=== PATIENT | male | born 1950 | race Caucasian/White ===

== ENCOUNTER 2016-08-16 17:59 | Emergency (ER) | payer MEDICARE, OTHER ==
[2016-08-16 18:06] VITALS: PULSE 50; RESP 18
[2016-08-16] MEDS ORDERED: DIPH,PERTUS(ACELL)TETVAC-LF 0.5 ML VIAL IM ONE (18:11)
--- NOTE | 2016-08-16 18:25 | ED ---
Fall HPI - General Chief Complaint: Fall Stated Complaint: fall Time Seen by Provider: 08/16/16 18:05 Source: patient, RN notes reviewed, old records reviewed Mode of arrival: EMS - History of Present Illness Initial Comments: Patient is a 66-year-old male with chief complaint of a fall from a standing position. Patient reports that he was walking and tripped over a concrete curb. Patient reports that he fell hit his head and has a laceration to the left eyebrow. Patient reports he does not believe he any loss of consciousness. Patient reports that a bystander saw him and called 911. Patient reports that he is on Coumadin for Afib. Patient reports that he had his last check approximately 3 weeks ago. Patient denies any other injuries besides the laceration. He denies headache. Patient son is here and reports that he is responding in his normal affect and normal mental status.Patient denies any recent fever, chills, shortness of breath, chest pain, back pain, abdominal pain, nausea vomiting, numbness or tingling, dysuria or hematuria, constipation or diarrhea, headaches or visual changes, or any other current symptoms - Related Data Home Medications Medication Instructions Recorded Confirmed Aspirin 81 mg PO DAILY 10/10/15 08/16/16 Atenolol [Tenormin] 50 mg PO BID 10/10/15 08/16/16 Cholecalciferol [Vitamin D3] 1,000 unit PO DAILY 10/10/15 08/16/16 Cyanocobalamin [Vitamin B-12] 1,000 mcg PO DAILY 10/10/15 08/16/16 Divalproex [Depakote] 250 mg PO BID 10/10/15 08/16/16 Divalproex [Depakote] 500 mg PO BID 10/10/15 08/16/16 Gabapentin [Neurontin] 100 mg PO QID 10/10/15 08/16/16 Isosorbide Mononitrate [Isosorbide 30 mg PO DAILY 10/10/15 08/16/16 Mononitrate ER] Levothyroxine Sodium [Synthroid] 88 mcg PO DAILY 10/10/15 08/16/16 [place]-3 Fatty Acids/Fish Oil [Fish 1 cap PO DAILY 10/10/15 08/16/16 Oil 1,000 mg Softgel] Ramipril 2.5 mg PO DAILY 10/10/15 08/16/16 Warfarin [Coumadin] 5 mg PO SUTUTHSA 10/10/15 08/16/16 Warfarin [Coumadin] 7.5 mg PO MOWEFR 10/10/15 08/16/16 carBAMazepine [Carbatrol] 100 mg PO DAILY 10/10/15 08/16/16 carBAMazepine [Carbatrol] 300 mg PO BID 10/10/15 08/16/16 Allergies Allergy/AdvReac Type Severity Reaction Status Date / Time No Known Allergies Allergy Verified 08/16/16 18:33 Review of Systems ROS Statement: Those systems with pertinent positive or pertinent negative responses have been documented in the HPI. ROS Other: All systems not noted in ROS Statement are negative. Past Medical History Past Medical History: Diabetes Mellitus, Hypertension, Seizure Disorder Additional Past Medical History / Comment(s): pt poor historian History of Any Multi-Drug Resistant Organisms: None Reported Past Surgical History: Bowel Resection, Orthopedic Surgery Past Psychological History: Anxiety Smoking Status: Former smoker Past Alcohol Use History: None Reported Past Drug Use History: None Reported General Exam - General Exam Comments Initial Comments: Patient is a pleasant and alert and oriented [id number] male. Patient doesn' t appear to be in any acute distress. Limitations: no limitations General appearance: alert, in no apparent distress Head exam: Present: normocephalic, normal inspection. Absent: atraumatic ( Evidence of a 3 cm laceration over the left eyebrow.) Eye exam: Present: normal appearance, PERRL, EOMI. Absent: scleral icterus, conjunctival injection, periorbital swelling ENT exam: Present: normal exam, mucous membranes moist Neck exam: Present: normal inspection. Absent: tenderness, meningismus, lymphadenopathy Respiratory exam: Present: normal lung sounds bilaterally. Absent: respiratory distress, wheezes, rales, rhonchi, stridor Cardiovascular Exam: Present: regular rate, normal rhythm, normal heart sounds. Absent: systolic murmur, diastolic murmur, rubs, gallop, clicks GI/Abdominal exam: Present: soft, normal bowel sounds. Absent: distended, tenderness, guarding, rebound, rigid Extremities exam: Present: normal inspection, full ROM, normal capillary refill. Absent: tenderness, pedal edema, joint swelling, calf tenderness Back exam: Present: normal inspection Neurological exam: Present: alert, oriented X3, CN II-XII intact Psychiatric exam: Present: normal affect, normal mood Skin exam: Present: warm, dry, intact, normal color. Absent: rash Course Vital Signs 08/16/16 18:00 Temperature 97.0 F L Pulse Rate 50 L Respiratory 18 Rate Blood Pressure 154/74 O2 Sat by Pulse 100 Oximetry Medical Decision Making - Medical Decision Making Patient is a 66-year-old male with chief complaint of a fall from a standing position. Patient reports that he was walking and tripped over a concrete curb. Patient reports that he fell hit his head and has a laceration to the left eyebrow. Patient reports he does not believe he any loss of consciousness. Patient reports that a bystander saw him and called 911. Patient reports that he is on Coumadin for Afib. Patient reports that he had his last check approximately 3 weeks ago. Patient denies any other injuries besides the laceration. He denies headache. CT brain and C-spine are reviewed and are negative for any acute intracranial abnormality or fracture. Patient was removed from the c-collar. The laceration was closed with Dermabond. The wound was well approximated and cleaned thoroughly prior to closure. I did discuss with the patient that they need to monitor for any signs of infection including redness and drainage or increased swelling. I also advised the patient's family and patient and he needs to be monitored for the next 24-48 hours after a head injury socially being on Coumadin. Advised him to return emergency room once if he has any vomiting or abnormal mental status. They state that they will comply to the treatment plan. Patient is in understanding and will be returning home at this time. - Lab Data Lab Results 08/16/16 Range/Units 18:43 PT 22.2 H (9.0-12.0) sec INR 2.3 (<1.1) APTT 32.3 H (22.0-30.0) sec - Radiology Data Radiology results: report reviewed There is no acute fracture or dislocation evident in the cervical spine. No acute intracranial hemorrhage or midline shift seen. There is mild diffuse cerebral atrophy and mild to moderate chronic small vessel ischemic changes demonstrate a. No significant change from prior. Disposition Clinical Impression: Minor head injury without loss of consciousness, Facial laceration Disposition: HOME SELF-CARE Condition: Good Instructions: Fall Prevention for Older Adults (ED) Additional Instructions: Patient advised to monitor for any signs of infection over the laceration that is on include redness drainage and swelling. Patient denies to return to the emergency department if any alarming signs or symptoms occur. Patient is to be monitored at all times for the next 24 hours and if any alarming signs including altered mental status or vomiting patient needs return the emergency department once. Referrals: Willa Bales MD [Primary Care Provider] - 1-2 days Time of Disposition: 19:47
[2016-08-16] MEDS ORDERED: TOPICAL SKIN ADHESIVE 1 EACH AMP TOPICAL ONE (19:04)
[2016-08-16 19:12] LABS: INR 2.3 (<1.1); Partial Thromboplastin Time 32.3 sec (22.0-30.0); Prothrombin Time 22.2 sec (9.0-12.0)
--- NOTE | 2016-08-16 19:34 | CT ---
EXAMINATION TYPE: CT brain cspine wo con DATE OF EXAM: 08/16/2016 7:23 PM COMPARISON: CT brain December 28, 2014 HISTORY: fall today Left fontal injury with headache and neck pain CT DLP: 1975 mGycm. Automated Exposure Control for Dose Reduction was Utilized. TECHNIQUE: CT scan of the head and cervical spine are performed without contrast. FINDINGS: There is no acute intracranial hemorrhage or midline shift identified. There is ventricul ar and sulcal prominence consistent with diffuse cerebral atrophy. There is low-attenuation periventr icular white matter presumed on basis of product of chronic small vessel ischemic change in patient t his age. Patchy soft tissue density bilateral external auditory canals, right greater than left is pr esumed product of cerumen. The calvarium is intact. Cervical spine is visualized in its entirety from C1 through upper thoracic levels and demonstrates s traightened alignment without evidence of acute fracture or dislocation. There is slight grade 1 retr olisthesis of C4 on C5. Prevertebral soft tissue appears within normal limits. The C1-C2 articulatio n is within normal limits on the coronal images. Vertebral body heights are maintained. There is moderate to severe multilevel spurring and disc space narrowing most prominent at C4-C5 level. There is effacement of anterior thecal sac at C3-C4 and C4- C5 levels due to spur disc complexes and at C5-C6 level due to posterior disc herniation. Review of a xial images shows multilevel uncovertebral facet degenerative changes causing neural foraminal narrow ing at several cervical levels. There is moderate to severe calcified plaque at carotid bulb level bi laterally. Lung apices are clear. IMPRESSION: 1. There is no acute fracture or dislocation evident in the cervical spine. 2. No acute intracranial hemorrhage or midline shift is seen. There is mild diffuse cerebral atrophy and mild to moderate chronic small vessel ischemic change redemonstrated. No significant change from prior.
[2016-08-16 20:19] VITALS: BP 153/83; TEMP 96.9
== END 2016-08-16 20:18 | disposition home or self-care (01) ==
LOC: EC 17:59
DX: S01.112A Laceration without foreign body of left eyelid and periocular area, initial encounter (principal); I10 Essential (primary) hypertension; I48.91 Unspecified atrial fibrillation; G40.909 Epilepsy, unspecified, not intractable, without status epilepticus; Z23 Encounter for immunization; Z79.82 Long term (current) use of aspirin; Z79.01 Long term (current) use of anticoagulants; Z87.891 Personal history of nicotine dependence; Z79.899 Other long term (current) drug therapy; W18.09XA Striking against other object with subsequent fall, initial encounter; Y93.01 Activity, walking, marching and hiking; Y99.8 Other external cause status
CPT/HCPCS: 12002; 36415; 70450; 72125; 85610; 85730; 90471; 90715; 99285

== ENCOUNTER → 2016-08-25 | Outpatient (CLI) | payer MEDICARE, OTHER ==
[2016-08-25 08:55] LABS: Basophils % (A) 1 %; CH 34.4; CHCM 34.2; Eosinophils # (A) 0.1 k/uL (0-0.7); Eosinophils % (A) 3 %; HCT 37.1 % (39.0-53.0); HDW 2.71; HGB 12.4 gm/dL (13.0-17.5); Luc # (Auto) 0.09; Luc % (Auto) 4; Lymphocytes # (A) 0.8 k/uL (1.0-4.8); Lymphocytes % (A) 30 %; MCH 33.8 pg (25.0-35.0); MCHC 33.4 g/dL (31.0-37.0); MCV 101.2 fL (80.0-100.0); Mean Platelet Volume 8.4; Monocytes # (A) 0.2 k/uL (0-1.0); Monocytes % (A) 9 %; Neutrophils # (A) 1.4 k/uL (1.3-7.7); Neutrophils % (A) 53 %; RBC 3.67 m/uL (4.30-5.90); RDW 12.6 % (11.5-15.5); WBC 2.6 k/uL (3.8-10.6); WBC (Perox) 2.99
[2016-08-25 09:19] LABS: Carbamazepine (Tegretol) 6.4 ug/mL
== END | disposition home or self-care (01) ==
LOC: LABWHC1 08:20
PROVIDERS: ATTEND Psychiatry & Neurology Neurology
DX: G40.209 Localization-related (focal) (partial) symptomatic epilepsy and epileptic syndromes with complex partial seizures, not intractable, without status epilepticus (principal)
CPT/HCPCS: 36415; 80156; 80164; 84450; 84460; 85025

== ENCOUNTER → 2016-11-20 | Outpatient (CLI) | payer MEDICARE, OTHER ==
[2016-11-20 15:44] LABS: Basophils # (A) 0.1 k/uL (0-0.2); Basophils % (A) 1 %; CH 34.5; CHCM 33.7; Eosinophils # (A) 0.1 k/uL (0-0.7); Eosinophils % (A) 2 %; HCT 38.3 % (39.0-53.0); HDW 2.59; HGB 12.6 gm/dL (13.0-17.5); Luc # (Auto) 0.09; Luc % (Auto) 2; Lymphocytes # (A) 1.2 k/uL (1.0-4.8); Lymphocytes % (A) 24 %; MCH 33.9 pg (25.0-35.0); MCHC 32.9 g/dL (31.0-37.0); MCV 102.9 fL (80.0-100.0); Macrocytosis Slight; Mean Platelet Volume 7.8; Monocytes # (A) 0.5 k/uL (0-1.0); Monocytes % (A) 10 %; Neutrophils # (A) 3.2 k/uL (1.3-7.7); Neutrophils % (A) 62 %; RBC 3.72 m/uL (4.30-5.90); RDW 13.6 % (11.5-15.5); WBC 5.1 k/uL (3.8-10.6); WBC (Perox) 5.24
== END | disposition home or self-care (01) ==
LOC: LABWHC1 15:05
PROVIDERS: ATTEND Psychiatry & Neurology Neurology
DX: G40.209 Localization-related (focal) (partial) symptomatic epilepsy and epileptic syndromes with complex partial seizures, not intractable, without status epilepticus (principal)
CPT/HCPCS: 36415; 85025

== ENCOUNTER → 2017-02-23 | Outpatient (CLI) | payer MEDICARE, OTHER ==
[2017-02-23 11:14] LABS: Basophils % (A) 1 %; CHCM 34.5; Eosinophils # (A) 0.1 k/uL (0-0.7); Eosinophils % (A) 1 %; HDW 2.73; HGB 12.8 gm/dL (13.0-17.5); Luc # (Auto) 0.06; Luc % (Auto) 1; Lymphocytes # (A) 1.1 k/uL (1.0-4.8); Lymphocytes % (A) 19 %; MCH 34.3 pg (25.0-35.0); MCHC 33.7 g/dL (31.0-37.0); MCV 101.8 fL (80.0-100.0); Macrocytosis Slight; Mean Platelet Volume 8.1; Monocytes # (A) 0.6 k/uL (0-1.0); Monocytes % (A) 11 %; Neutrophils # (A) 3.9 k/uL (1.3-7.7); Neutrophils % (A) 68 %; RBC 3.73 m/uL (4.30-5.90); RDW 13.6 % (11.5-15.5); WBC 5.7 k/uL (3.8-10.6); WBC (Perox) 5.23
--- NOTE | 2017-02-23 11:22 | XR ---
EXAMINATION TYPE: XR lumbosacral spine min 4V DATE OF EXAM: 02/23/2017 COMPARISON: NONE HISTORY: Back pain TECHNIQUE: 5 view lumbar spine FINDINGS: There 5 lumbar-type vertebral bodies. Pedicles are intact. There is loss of disc height thr ough the lumbar disc levels. Spondylosis is present. No spondylolysis is identified. Scoliosis is pre sent. A 3.8 cm round calcification is adjacent to the left L2 level could be a splenic artery or renal daniel ry aneurysm. IMPRESSION: 1. Degenerative disc changes throughout the lumbar spine. Scoliosis is present. 2. 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 CT may better localize this finding .
[2017-02-23 11:27] LABS: Carbamazepine (Tegretol) 5.8 ug/mL
== END | disposition home or self-care (01) ==
LOC: RADXRMAIN 09:14
PROVIDERS: ATTEND Psychiatry & Neurology Neurology
DX: M47.816 Spondylosis without myelopathy or radiculopathy, lumbar region (principal); M41.9 Scoliosis, unspecified; G40.209 Localization-related (focal) (partial) symptomatic epilepsy and epileptic syndromes with complex partial seizures, not intractable, without status epilepticus
CPT/HCPCS: 72110; 80156; 80164; 84450; 84460; 85025

== ENCOUNTER 2017-03-09 21:56 | Emergency (ER) | payer MEDICARE, OTHER ==
[2017-03-09 22:06] VITALS: RESP 16
[2017-03-09] MEDS ORDERED: SODIUM CHLORIDE 0.9% 1,000 ML IV ONE (22:24)
[2017-03-09 22:45] LABS: Basophils % (A) 1 %; CH 34.6; CHCM 34.8; Eosinophils # (A) 0.1 k/uL (0-0.7); Eosinophils % (A) 1 %; HDW 2.78; HGB 11.1 gm/dL (13.0-17.5); Luc # (Auto) 0.05; Luc % (Auto) 1; Lymphocytes # (A) 0.7 k/uL (1.0-4.8); Lymphocytes % (A) 15 %; MCH 34.7 pg (25.0-35.0); MCHC 34.7 g/dL (31.0-37.0); Mean Platelet Volume 8.3; Monocytes # (A) 0.4 k/uL (0-1.0); Monocytes % (A) 8 %; Neutrophils # (A) 3.4 k/uL (1.3-7.7); Neutrophils % (A) 74 %; RDW 13.1 % (11.5-15.5); WBC 4.6 k/uL (3.8-10.6); WBC (Perox) 4.53
[2017-03-09 22:53] LABS: INR 2.3 (<1.2); Partial Thromboplastin Time 29.5 sec (22.0-30.0); Prothrombin Time 22.2 sec (9.0-12.0)
--- NOTE | 2017-03-09 22:55 | ED ---
Fall HPI - General Chief Complaint: Fall Stated Complaint: Fall Time Seen by Provider: 03/09/17 22:13 Source: patient, EMS Mode of arrival: EMS - History of Present Illness Initial Comments: Patient presents following a fall. Patient states she was walking home from the store, when he tripped over the curb fell forward hitting his right eye on the ground. Complains of cut above his right eye. Patient is on Coumadin. Denies loss of consciousness. Patient states a bystander called the ambulance which brought him to the ER. Patient's only complaint at this time is pain over his right eye. Patient denies vision changes, numbness, weakness, neck pain, back pain, extremity pain, deformities, swelling. Fall was from ground level. No suspicion of alcohol or drug use. Patient walks with a cane normally. Patient states she has visiting physicians come to his house. States he has an appointment with them tomorrow. 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 Place Fall Occurred: street Loss of Consciousness: none Prolonged Down Time?: no Symptoms Prior to Fall: none Location: head - Related Data Home Medications Medication Instructions Recorded Confirmed Aspirin 81 mg PO DAILY 10/10/15 03/09/17 Atenolol [Tenormin] 50 mg PO BID 10/10/15 03/09/17 Cholecalciferol [Vitamin D3] 1,000 unit PO DAILY 10/10/15 03/09/17 Cyanocobalamin [Vitamin B-12] 1,000 mcg PO DAILY 10/10/15 03/09/17 Divalproex [Depakote] 250 mg PO BID 10/10/15 03/09/17 Divalproex [Depakote] 500 mg PO BID 10/10/15 03/09/17 Gabapentin [Neurontin] 100 mg PO QID 10/10/15 03/09/17 Isosorbide Mononitrate [Isosorbide 30 mg PO DAILY 10/10/15 03/09/17 Mononitrate ER] Levothyroxine Sodium [Synthroid] 88 mcg PO DAILY 10/10/15 03/09/17 [place]-3 Fatty Acids/Fish Oil [Fish 1 cap PO DAILY 10/10/15 03/09/17 Oil 1,000 mg Softgel] Ramipril 2.5 mg PO DAILY 10/10/15 03/09/17 Warfarin [Coumadin] 5 mg PO SUTUTHSA 10/10/15 03/09/17 Warfarin [Coumadin] 7.5 mg PO MOWEFR 10/10/15 03/09/17 carBAMazepine [Carbatrol] 100 mg PO DAILY 10/10/15 03/09/17 carBAMazepine [Carbatrol] 300 mg PO BID 10/10/15 03/09/17 Allergies Allergy/AdvReac Type Severity Reaction Status Date / Time No Known Allergies Allergy Verified 03/09/17 22:14 Review of Systems ROS Statement: Those systems with pertinent positive or pertinent negative responses have been documented in the HPI. ROS Other: All systems not noted in ROS Statement are negative. Constitutional: Denies: fever, chills, weakness Eyes: Reports: eye pain (Above the right eye. No pain within the orbit.). Denies: eye discharge, vision change ENT: Denies: ear pain, throat pain, dental pain, hearing loss, epistaxis Respiratory: Denies: dyspnea Cardiovascular: Denies: chest pain, palpitations Endocrine: Denies: fatigue Gastrointestinal: Denies: abdominal pain, nausea, vomiting Genitourinary: Denies: urgency, frequency Musculoskeletal: Denies: back pain, joint swelling, arthralgia, myalgia Skin: Reports: other (Wound over eye). Denies: rash Neurological: Reports: headache (Localized above right eye). Denies: weakness, numbness, paresthesias, confusion, vertigo Past Medical History Past Medical History: Atrial Fibrillation, Diabetes Mellitus, Hypertension, Seizure Disorder Additional Past Medical History / Comment(s): Hepatitis B carrier. History of Any Multi-Drug Resistant Organisms: None Reported Past Surgical History: Bowel Resection, Orthopedic Surgery, Pacemaker Past Psychological History: Anxiety Smoking Status: Former smoker Past Alcohol Use History: None Reported Past Drug Use History: None Reported General Exam - General Exam Comments Initial Comments: Patient sitting up in bed alert. Patient has had wrapped in bandage, dried blood along the right side of face. Patient conversing normally. Does not appear in pain. Calm, pleasant. Limitations: no limitations General appearance: alert, in no apparent distress Head exam: Present: other (Patient with 3 cm & 1cm lacerations above right eyebrow. No active bleeding. No other traumatic injuries identified on head or face. Nose appears normal. ) Eye exam: Present: normal appearance, PERRL, EOMI, periorbital swelling, periorbital tenderness (Swelling and tenderness above the right eye. Patient's eye movements intact bilaterally without pain.), other. Absent: conjunctival injection Pupils: Present: normal accommodation. Absent: irregular, unequal ENT exam: Present: normal exam, normal oropharynx Neck exam: Present: normal inspection, other (No midline tenderness, c-collar in place.). Absent: tenderness, meningismus Respiratory exam: Present: normal lung sounds bilaterally. Absent: respiratory distress, wheezes, rales, rhonchi, stridor Cardiovascular Exam: Present: regular rate, normal rhythm GI/Abdominal exam: Present: soft. Absent: distended, tenderness, guarding, rebound Rectal exam: Present: deferred Extremities exam: Present: normal inspection, full ROM, other (Trace pitting edema left lower extremity, patient states is chronic. No bony tenderness in the extremities, no joint swelling, superficial abrasion over lateral left knee. No pain with range of motion of the hips or pelvis.). Absent: tenderness Back exam: Present: full ROM, other (No vertebral tenderness). Absent: tenderness Neurological exam: Present: alert, oriented X3, CN II-XII intact. Absent: motor sensory deficit Psychiatric exam: Present: normal affect, normal mood Skin exam: Present: warm, dry, abrasion Course Vital Signs 03/09/17 21:59 Temperature 98.8 F Pulse Rate 55 L Respiratory 16 Rate Blood Pressure 136/74 O2 Sat by Pulse 100 Oximetry Medical Decision Making - Medical Decision Making Tetanus given in 08/2016 Chest/pelvis x-ray showed no acute process per radiologist. CT of head and neck show no acute process per radiologist. Lacerations above right eye copiously irrigated, no vascular involvement, no foreign bodies identified. Patient numbed with lidocaine with epinephrine, 7 nonabsorbable sutures placed. Patient tolerated procedure well. Bacitracin and dressing applied following procedure. Patient has no neurologic deficits on exam. INR elevated at 2.1. Given patient 's significant head trauma, elevated INR. Recommended overnight observation for neurologic monitoring and possible repeat head CT in 12 hours. Will transfer to trauma center [facility]. Spoke with Dr. Juan at [facility], updated with patient condition & results, excepts transfer to ER. Patient remains pain control. No neurologic findings on exam. Conversing normally. Patient updated with all results and plan. Risks and benefits of transfer explained to patient, he understands and agrees. - Lab Data Result diagrams: 03/09/17 22:40 03/09/17 22:40 Lab Results 03/09/17 03/09/17 03/09/17 Range/Units 22:40 22:40 22:40 WBC 4.6 (3.8-10.6) k/uL RBC 3.20 L (4.30-5.90) m/uL Hgb 11.1 L (13.0-17.5) gm/dL Hct 32.0 L (39.0-53.0) % MCV 100.0 (80.0-100.0) fL MCH 34.7 (25.0-35.0) pg MCHC 34.7 (31.0-37.0) g/dL RDW 13.1 (11.5-15.5) % Plt Count 149 L (150-450) k/uL Neutrophils % 74 % Lymphocytes % 15 % Monocytes % 8 % Eosinophils % 1 % Basophils % 1 % Neutrophils # 3.4 (1.3-7.7) k/uL Lymphocytes # 0.7 L (1.0-4.8) k/uL Monocytes # 0.4 (0-1.0) k/uL Eosinophils # 0.1 (0-0.7) k/uL Basophils # 0.0 (0-0.2) k/uL PT (9.0-12.0) sec INR (<1.2) APTT (22.0-30.0) sec Sodium 135 L (137-145) mmol/L Potassium 3.7 (3.5-5.1) mmol/L Chloride 100 (98-107) mmol/L Carbon Dioxide 27 (22-30) mmol/L Anion Gap 8 mmol/L BUN 22 H (9-20) mg/dL Creatinine 0.79 (0.66-1.25) mg/dL Est GFR (MDRD) Af Amer >60 (>60 ml/min/1.73 sqM) Est GFR (MDRD) Non-Af >60 (>60 ml/min/1.73 sqM) Glucose 151 H (74-99) mg/dL Calcium 8.8 (8.4-10.2) mg/dL Blood Type A Positive Blood Type Recheck CABO Indicated Antibody Screen NEGATIVE Spec Expiration Date 03/12/2017 - 233903/09/17 Range/Units 22:40 WBC (3.8-10.6) k/uL RBC (4.30-5.90) m/uL Hgb (13.0-17.5) gm/dL Hct (39.0-53.0) % MCV (80.0-100.0) fL MCH (25.0-35.0) pg MCHC (31.0-37.0) g/dL RDW (11.5-15.5) % Plt Count (150-450) k/uL Neutrophils % % Lymphocytes % % Monocytes % % Eosinophils % % Basophils % % Neutrophils # (1.3-7.7) k/uL Lymphocytes # (1.0-4.8) k/uL Monocytes # (0-1.0) k/uL Eosinophils # (0-0.7) k/uL Basophils # (0-0.2) k/uL PT 22.2 H (9.0-12.0) sec INR 2.3 H (<1.2) APTT 29.5 (22.0-30.0) sec Sodium (137-145) mmol/L Potassium (3.5-5.1) mmol/L Chloride (98-107) mmol/L Carbon Dioxide (22-30) mmol/L Anion Gap mmol/L BUN (9-20) mg/dL Creatinine (0.66-1.25) mg/dL Est GFR (MDRD) Af Amer (>60 ml/min/1.73 sqM) Est GFR (MDRD) Non-Af (>60 ml/min/1.73 sqM) Glucose (74-99) mg/dL Calcium (8.4-10.2) mg/dL Blood Type Blood Type Recheck Antibody Screen Spec Expiration Date - EKG Data -: EKG Interpreted by 03/09/17 23:16 EKG shows ventricularly paced rhythm, heart rate 51 - Radiology Data Radiology results: report reviewed Disposition Clinical Impression: Closed head injury, Eyebrow laceration, Elevated INR Narrative: Patient will be transferred to [facility] to the ER. Transfered via ALS. Disposition: DC/TRNS INTERMEDIATE CARE FAC Condition: Good Referrals: None,Stated [Primary Care Provider] - 1-2 days - Out of Hospital Transfer - Req. Specs Out of Hospital Transfer - Requested Specifics: Other Non-Acute
[2017-03-09 22:56] LABS: Anion Gap 8 mmol/L; Blood Urea Nitrogen 22 mg/dL (9-20); Calcium 8.8 mg/dL (8.4-10.2); Carbon Dioxide 27 mmol/L (22-30); Chloride 100 mmol/L (98-107); Glucose 151 mg/dL (74-99); Non-African American GFR(MDRD) >60 (>60 ml/min/1.73 sqM); Potassium 3.7 mmol/L (3.5-5.1); Sodium 135 mmol/L (137-145)
--- NOTE | 2017-03-09 23:10 | CT ---
EXAMINATION TYPE: CT brain yasmeen de jesus DATE OF EXAM: 03/09/2017 COMPARISON: 08/16/2016 HISTORY: Fall injury with abrasions to forehead. CT DLP: 1314.2 mGycm Automated exposure control for dose reduction was used. TECHNIQUE: CT scan of the head and cervical spine are performed without contrast. FINDINGS: There is cerebral cortical atrophy. There is no mass effect nor midline shift. There is n o sign of intracranial hemorrhage. The calvarium is intact. There is mild hypodensity in the perivent ricular white matter. This is more noticeable in the anterior right internal capsule. Cervical vertebra have normal alignment. There is narrowing of disc spaces throughout the cervical sp ine with spur formation. Facet joints are intact. There is hypertrophic multilevel facet arthropathy. Skull base is intact. There is bony spinal stenosis at C3-4 C4-5 due to endplate spur formation. IMPRESSION: Cerebral atrophy. Chronic small vessel ischemia. No change. Multilevel spondylosis and spinal stenosis. No fracture. No change.
--- NOTE | 2017-03-09 23:15 | XR ---
EXAMINATION TYPE: XR chest 1V portable DATE OF EXAM: 03/09/2017 COMPARISON: 10/10/2015 HISTORY: Fall TECHNIQUE: Single frontal view of the chest is obtained. FINDINGS: There is no heart failure nor confluent pneumonic infiltrate. There is left axillary pacem rico with the lead tip in the right ventricle. There is no pleural effusion. Thoracic aorta is athero matous. IMPRESSION: No active cardiopulmonary disease. No change. Osteoarthritis noted in both shoulder join ts and more on the right side.
--- NOTE | 2017-03-09 23:49 | XR ---
EXAMINATION TYPE: XR pelvis AP view DATE OF EXAM: 03/09/2017 COMPARISON: NONE HISTORY: Pain. Fall. TECHNIQUE: 2 views FINDINGS: The pelvic ring is intact. There is severe narrowing of hip joint spaces with spur formatio n. There is some flattening of the articular surface of the left femoral head. Sacroiliac joints appe ar intact. There are spondylotic changes in the lumbar spine. There is periarticular calcification on the right side more than the left. IMPRESSION: Moderately severe osteoarthritis. 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 No acute fracture seen.
[2017-03-10 01:01] VITALS: BP 160/80; PULSE 60; TEMP 98
== END 2017-03-10 01:12 ==
LOC: EC 21:56
DX: S01.111A Laceration without foreign body of right eyelid and periocular area, initial encounter (principal); S80.212A Abrasion, left knee, initial encounter; R79.1 Abnormal coagulation profile; R60.0 Localized edema; I10 Essential (primary) hypertension; G40.909 Epilepsy, unspecified, not intractable, without status epilepticus; F41.9 Anxiety disorder, unspecified; Z87.891 Personal history of nicotine dependence; Z79.01 Long term (current) use of anticoagulants; Z79.82 Long term (current) use of aspirin; Z79.899 Other long term (current) drug therapy; W18.09XA Striking against other object with subsequent fall, initial encounter; Y93.01 Activity, walking, marching and hiking; Y92.410 Unspecified street and highway as the place of occurrence of the external cause
CPT/HCPCS: 12013; 36415; 70450; 71010; 72125; 72170; 80048; 85025; 85610; 85730; 86850; 86900; 86901; 93005; 96360; 96361; 99285

== ENCOUNTER 2017-06-11 19:35 | Emergency (ER) | payer MEDICARE, OTHER ==
[2017-06-11 20:39] LABS: Basophils % (A) 1 %; Eosinophils # (A) 0.1 k/uL (0-0.7); Eosinophils % (A) 2 %; HCT 35.3 % (39.0-53.0); HGB 11.8 gm/dL (13.0-17.5); Lymphocytes # (A) 1.5 k/uL (1.0-4.8); Lymphocytes % (A) 25 %; MCH 33.2 pg (25.0-35.0); MCHC 33.3 g/dL (31.0-37.0); MCV 99.9 fL (80.0-100.0); Mean Platelet Volume 8.2; Monocytes # (A) 0.5 k/uL (0-1.0); Monocytes % (A) 9 %; Neutrophils # (A) 3.8 k/uL (1.3-7.7); Neutrophils % (A) 63 %; Platelet Count 214 k/uL (150-450); RBC 3.54 m/uL (4.30-5.90); RDW 13.4 % (11.5-15.5)
[2017-06-11 20:47] LABS: INR 1.6 (<1.2); Partial Thromboplastin Time 25.9 sec (22.0-30.0); Prothrombin Time 14.4 sec (9.0-12.0)
[2017-06-11 20:50] LABS: ALT 26 U/L (21-72); AST 33 U/L (17-59); Albumin 3.9 g/dL (3.5-5.0); Alkaline Phosphatase 57 U/L (38-126); Anion Gap 9 mmol/L; Blood Urea Nitrogen 30 mg/dL (9-20); Calcium 9.3 mg/dL (8.4-10.2); Carbon Dioxide 32 mmol/L (22-30); Chloride 95 mmol/L (98-107); Glucose 111 mg/dL (74-99); Sodium 136 mmol/L (137-145); Total Bilirubin 0.7 mg/dL (0.2-1.3); Total Protein 6.9 g/dL (6.3-8.2)
[2017-06-11 20:51] LABS: Potassium 4.4 mmol/L (3.5-5.1)
--- NOTE | 2017-06-11 21:24 | ED ---
General Adult HPI - General Chief complaint: Overdose Stated complaint: Accidental Overdose Time Seen by Provider: 06/11/17 20:00 Source: patient, EMS, RN notes reviewed Mode of arrival: EMS Limitations: physical limitation - History of Present Illness Initial comments: This a 59-year-old male presents emergency Department chief complaint of accidental overdose. Patient states that he was taking his night medications were also took his morning medications with him. Patient states that he takes pain medications. Patient states that he took these medications about 5:30 PM. He states that just prior arrival he started feeling slightly lightheaded and dizzy. Denied chest pain, shortness breath, focal weakness, nausea, vomiting diarrhea constipation. Patient states he has she is feeling much improved at this time. Patient states it seemed to be more when he initially stood up he felt dizzy. - Related Data Home Medications Medication Instructions Recorded Confirmed Aspirin 81 mg PO DAILY 10/10/15 06/11/17 Atenolol [Tenormin] 50 mg PO BID 10/10/15 06/11/17 Cholecalciferol [Vitamin D3] 1,000 unit PO DAILY 10/10/15 06/11/17 Cyanocobalamin [Vitamin B-12] 1,000 mcg PO DAILY 10/10/15 06/11/17 Divalproex [Depakote] 250 mg PO DAILY 10/10/15 06/11/17 Divalproex [Depakote] 500 mg PO BID 10/10/15 06/11/17 Gabapentin [Neurontin] 100 mg PO QID 10/10/15 06/11/17 Isosorbide Mononitrate [Isosorbide 30 mg PO DAILY 10/10/15 06/11/17 Mononitrate ER] Levothyroxine Sodium [Synthroid] 88 mcg PO DAILY 10/10/15 06/11/17 [place]-3 Fatty Acids/Fish Oil [Fish 1 cap PO DAILY 10/10/15 06/11/17 Oil 1,000 mg Softgel] Ramipril 2.5 mg PO DAILY 10/10/15 06/11/17 carBAMazepine [Carbatrol] 100 mg PO DAILY 10/10/15 06/11/17 carBAMazepine [Carbatrol] 300 mg PO BID 10/10/15 06/11/17 Docusate [Colace] 200 mg PO HS 06/11/17 06/11/17 Furosemide [Lasix] 20 mg PO BID 06/11/17 06/11/17 Potassium Chloride ER [K-Dur 20] 20 meq PO DAILY 06/11/17 06/11/17 Simvastatin [Zocor] 10 mg PO HS 06/11/17 06/11/17 Warfarin Sodium [Coumadin] 4 mg PO DAILY 06/11/17 06/11/17 Allergies Allergy/AdvReac Type Severity Reaction Status Date / Time No Known Allergies Allergy Verified 06/11/17 20:12 Review of Systems ROS Statement: Those systems with pertinent positive or pertinent negative responses have been documented in the HPI. ROS Other: All systems not noted in ROS Statement are negative. Past Medical History Past Medical History: Atrial Fibrillation, Diabetes Mellitus, Hypertension, Seizure Disorder Additional Past Medical History / Comment(s): Hepatitis B carrier. History of Any Multi-Drug Resistant Organisms: None Reported Past Surgical History: Bowel Resection, Orthopedic Surgery, Pacemaker Additional Past Surgical History / Comment(s): cataract surgery Past Psychological History: Anxiety Smoking Status: Former smoker Past Alcohol Use History: None Reported Past Drug Use History: None Reported General Exam Limitations: physical limitation General appearance: alert, in no apparent distress Head exam: Present: atraumatic, normocephalic, normal inspection Eye exam: Present: normal appearance, PERRL, EOMI. Absent: scleral icterus, conjunctival injection, periorbital swelling ENT exam: Present: normal exam, normal oropharynx, mucous membranes moist, TM's normal bilaterally, normal external ear exam Neck exam: Present: normal inspection, full ROM. Absent: tenderness, meningismus, lymphadenopathy Respiratory exam: Present: normal lung sounds bilaterally. Absent: respiratory distress, wheezes, rales, rhonchi, stridor Cardiovascular Exam: Present: regular rate, normal rhythm, normal heart sounds. Absent: systolic murmur, diastolic murmur, rubs, gallop, clicks Neurological exam: Present: alert, oriented X3, CN II-XII intact, reflexes normal. Absent: motor sensory deficit Skin exam: Present: warm, dry, intact, normal color. Absent: rash Course Vital Signs 06/11/17 19:41 Temperature 97.6 F Pulse Rate 69 Respiratory 16 Rate Blood Pressure 152/68 O2 Sat by Pulse 99 Oximetry EKG Findings - EKG Comments: EKG Findings:: EKG performed at 19:43 ventricular paced rhythm with rate of 52 QRS 0.84 QT/QTC 496/461 Medical Decision Making - Medical Decision Making 67-year-old male present emergency department for Be taking his medications. Patient does have a stable emergency department. Patient's labwork is such unremarkable. He is asymptomatic at this time he did state that he had an episode of dizziness at home with prompt him come emergency department. Patient is able to ambulate here without difficulty. We did discuss having follow-up and return for worsening symptoms. - Lab Data Result diagrams: 06/11/17 19:54 06/11/17 19:54 Lab Results 06/11/17 06/11/17 06/11/17 Range/Units 19:54 19:54 19:54 WBC 6.0 (3.8-10.6) k/uL RBC 3.54 L (4.30-5.90) m/uL Hgb 11.8 L (13.0-17.5) gm/dL Hct 35.3 L (39.0-53.0) % MCV 99.9 (80.0-100.0) fL MCH 33.2 (25.0-35.0) pg MCHC 33.3 (31.0-37.0) g/dL RDW 13.4 (11.5-15.5) % Plt Count 214 (150-450) k/uL Neutrophils % 63 % Lymphocytes % 25 % Monocytes % 9 % Eosinophils % 2 % Basophils % 1 % Neutrophils # 3.8 (1.3-7.7) k/uL Lymphocytes # 1.5 (1.0-4.8) k/uL Monocytes # 0.5 (0-1.0) k/uL Eosinophils # 0.1 (0-0.7) k/uL Basophils # 0.0 (0-0.2) k/uL PT 14.4 H (9.0-12.0) sec INR 1.6 H (<1.2) APTT 25.9 (22.0-30.0) sec Sodium 136 L (137-145) mmol/L Potassium 4.4 (3.5-5.1) mmol/L Chloride 95 L (98-107) mmol/L Carbon Dioxide 32 H (22-30) mmol/L Anion Gap 9 mmol/L BUN 30 H (9-20) mg/dL Creatinine 0.89 (0.66-1.25) mg/dL Est GFR (MDRD) Af Amer >60 (>60 ml/min/1.73 sqM) Est GFR (MDRD) Non-Af >60 (>60 ml/min/1.73 sqM) Glucose 111 H (74-99) mg/dL Calcium 9.3 (8.4-10.2) mg/dL Total Bilirubin 0.7 (0.2-1.3) mg/dL AST 33 (17-59) U/L ALT 26 (21-72) U/L Alkaline Phosphatase 57 (38-126) U/L Troponin I (0.000-0.034) ng/mL Total Protein 6.9 (6.3-8.2) g/dL Albumin 3.9 (3.5-5.0) g/dL Carbamazepine ug/mL 06/11/17 06/11/17 Range/Units 19:54 21:19 WBC (3.8-10.6) k/uL RBC (4.30-5.90) m/uL Hgb (13.0-17.5) gm/dL Hct (39.0-53.0) % MCV (80.0-100.0) fL MCH (25.0-35.0) pg MCHC (31.0-37.0) g/dL RDW (11.5-15.5) % Plt Count (150-450) k/uL Neutrophils % % Lymphocytes % % Monocytes % % Eosinophils % % Basophils % % Neutrophils # (1.3-7.7) k/uL Lymphocytes # (1.0-4.8) k/uL Monocytes # (0-1.0) k/uL Eosinophils # (0-0.7) k/uL Basophils # (0-0.2) k/uL PT (9.0-12.0) sec INR (<1.2) APTT (22.0-30.0) sec Sodium (137-145) mmol/L Potassium (3.5-5.1) mmol/L Chloride (98-107) mmol/L Carbon Dioxide (22-30) mmol/L Anion Gap mmol/L BUN (9-20) mg/dL Creatinine (0.66-1.25) mg/dL Est GFR (MDRD) Af Amer (>60 ml/min/1.73 sqM) Est GFR (MDRD) Non-Af (>60 ml/min/1.73 sqM) Glucose (74-99) mg/dL Calcium (8.4-10.2) mg/dL Total Bilirubin (0.2-1.3) mg/dL AST (17-59) U/L ALT (21-72) U/L Alkaline Phosphatase (38-126) U/L Troponin I 0.015 (0.000-0.034) ng/mL Total Protein (6.3-8.2) g/dL Albumin (3.5-5.0) g/dL Carbamazepine 8.3 ug/mL Disposition Clinical Impression: Accidental drug ingestion, Episode of dizziness Disposition: HOME SELF-CARE Condition: Stable Instructions: Dizziness (ED) Additional Instructions: Please return to the Emergency Department if symptoms worsen or any other concerns. Referrals: None,Stated [Primary Care Provider] - 1-2 days Time of Disposition: 21:56
[2017-06-11 22:07] VITALS: BP 145/76; PULSE 57; RESP 18; TEMP 97
== END 2017-06-11 23:01 | disposition home or self-care (01) ==
LOC: EC 19:35
DX: T50.901A Poisoning by unspecified drugs, medicaments and biological substances, accidental (unintentional), initial encounter (principal); R42 Dizziness and giddiness; I48.91 Unspecified atrial fibrillation; E11.9 Type 2 diabetes mellitus without complications; I10 Essential (primary) hypertension; G40.909 Epilepsy, unspecified, not intractable, without status epilepticus; F41.9 Anxiety disorder, unspecified; Z87.891 Personal history of nicotine dependence; Z79.01 Long term (current) use of anticoagulants; Z79.82 Long term (current) use of aspirin; Z79.899 Other long term (current) drug therapy
CPT/HCPCS: 36415; 80053; 80156; 84484; 85025; 85610; 85730; 93005; 99284

== ENCOUNTER → 2018-02-28 | Outpatient (CLI) | payer MEDICARE, OTHER ==
--- NOTE | 2018-02-28 10:12 | CT ---
EXAMINATION TYPE: CT brain wo con DATE OF EXAM: 02/28/2018 COMPARISON: 03/09/2017 HISTORY: Seizure disorder, weakness to bilateral legs CT DLP: 1072.3 mGycm Automated exposure control for dose reduction was used. FINDINGS: Intracranial atherosclerotic changes noted. There is moderate generalized degenerative change. Nonspe cific low-attenuation in the white matter bilaterally. Tiny low-attenuation the basal ganglia may been the basis of a tiny remote lacunar infarct or promine nt [place] spaces. No midline shift or mass effect. Calvarium intact. There is pneumatization of the petrous ridges. No acute hemorrhage. Changes of chronic sinusitis. IMPRESSION: DEGENERATIVE AND NONSPECIFIC WHITE MATTER CHANGE. FAVOR REMOTE MICROVASCULAR ISCHEMIA CORRELATE CLINI ASHLEIGH.
== END ==
LOC: RADCTMAIN 09:19
PROVIDERS: ATTEND Psychiatry & Neurology Neurology
DX: G31.9 Degenerative disease of nervous system, unspecified (principal); R90.89 Other abnormal findings on diagnostic imaging of central nervous system
CPT/HCPCS: 70450

== ENCOUNTER 2018-03-04 08:58 | Emergency (ER) | payer MEDICARE, OTHER ==
--- NOTE | 2018-03-04 09:07 | ED ---
General Adult HPI - General Stated complaint: CONFUSION Time Seen by Provider: 03/04/18 09:02 Source: patient, EMS, RN notes reviewed, old records reviewed - History of Present Illness Initial comments: 68-year-old male presenting for evaluation of confusion. The symptoms have been present for the past several weeks. Patient is currently staying at a boarding house, some of his roommates noted that he has had some increasing confusion. Patient denies any complaints. He is alert and oriented at the time my evaluation. Denies headache. Denies chest pain. Denies abdominal pain. Denies nausea vomiting. He does report some increased urinary frequency. Denies fever or chills. - Related Data Home Medications Medication Instructions Recorded Confirmed Aspirin 81 mg PO DAILY 10/10/15 03/04/18 Cholecalciferol [Vitamin D3] 1,000 unit PO DAILY 10/10/15 03/04/18 Cyanocobalamin [Vitamin B-12] 1,000 mcg PO DAILY 10/10/15 03/04/18 Divalproex [Depakote] 250 mg PO DAILY 10/10/15 03/04/18 Divalproex [Depakote] 500 mg PO BID 10/10/15 03/04/18 Gabapentin [Neurontin] 100 mg PO QID 10/10/15 03/04/18 Isosorbide Mononitrate [Isosorbide 30 mg PO HS 10/10/15 03/04/18 Mononitrate ER] [place]-3 Fatty Acids/Fish Oil [Fish 1 cap PO BID 10/10/15 03/04/18 Oil 1,000 mg Softgel] carBAMazepine [Carbatrol] 100 mg PO DAILY 10/10/15 03/04/18 carBAMazepine [Carbatrol] 300 mg PO BID 10/10/15 03/04/18 Docusate [Colace] 200 mg PO HS 06/11/17 03/04/18 Furosemide [Lasix] 20 mg PO BID 06/11/17 03/04/18 Simvastatin [Zocor] 10 mg PO HS 06/11/17 03/04/18 Apixaban [Eliquis] 5 mg PO BID 03/04/18 03/04/18 Atenolol [Tenormin] 25 mg PO DAILY 03/04/18 03/04/18 Eslicarbazepine Acetate [Aptiom] 600 mg PO DAILY 03/04/18 03/04/18 Levothyroxine Sodium [Synthroid] 100 mcg PO DAILY 03/04/18 03/04/18 Lisinopril [Zestril] 10 mg PO DAILY 03/04/18 03/04/18 Polyethylene Glycol 3350 [Clearlax] 17 gm PO DAILY 03/04/18 03/04/18 Potassium Chloride [K-Tab ER] 10 meq PO DAILY 03/04/18 03/04/18 Sennosides [Senna] 17.2 mg PO HS 03/04/18 03/04/18 Previous Rx's Medication Instructions Recorded Cephalexin [Keflex] 500 mg PO Q12HR #14 cap 03/04/18 Allergies Allergy/AdvReac Type Severity Reaction Status Date / Time No Known Allergies Allergy Verified 03/04/18 09:40 Review of Systems ROS Statement: Those systems with pertinent positive or pertinent negative responses have been documented in the HPI. ROS Other: All systems not noted in ROS Statement are negative. Past Medical History Past Medical History: Atrial Fibrillation, Diabetes Mellitus, Hypertension, Seizure Disorder Additional Past Medical History / Comment(s): Hepatitis B carrier. History of Any Multi-Drug Resistant Organisms: None Reported Past Surgical History: Bowel Resection, Orthopedic Surgery, Pacemaker Additional Past Surgical History / Comment(s): cataract surgery Past Psychological History: Anxiety Smoking Status: Former smoker Past Alcohol Use History: None Reported Past Drug Use History: None Reported General Exam General appearance: alert, in no apparent distress Head exam: Present: atraumatic, normocephalic Eye exam: Present: normal appearance, PERRL, EOMI ENT exam: Present: normal exam Neck exam: Present: normal inspection. Absent: tenderness, meningismus Respiratory exam: Present: normal lung sounds bilaterally. Absent: respiratory distress Cardiovascular Exam: Present: normal rhythm, bradycardia GI/Abdominal exam: Present: soft. Absent: distended, tenderness Extremities exam: Present: normal capillary refill, pedal edema Neurological exam: Present: alert, oriented X3, CN II-XII intact. Absent: motor sensory deficit Skin exam: Present: warm, dry, intact Course Vital Signs 03/04/18 03/04/18 09:01 10:12 Temperature 98.4 F Pulse Rate 51 L 52 L Respiratory 18 18 Rate Blood Pressure 132/77 154/84 O2 Sat by Pulse 98 98 Oximetry EKG Findings - EKG Comments: EKG Findings:: Electronic ventricular pacemaker, rate of 50, QRS duration 182, QTC 441 Medical Decision Making - Medical Decision Making 68-year-old male presenting for evaluation of confusion over the past several weeks. Patient [facility], his meals are provided, his medicine is given to him on a daily basis. Patient is alert and oriented time my evaluation. There was some concern that the patient may have urinary tract infection as he has had some increased urinary frequency and according to his utility aide had some urinary incontinence. Patient has a nonfocal neurologic exam is overall well-appearing, chest x-ray is negative, CT is negative for any acute intracranial findings, he has a normal white blood cell count, stable hemoglobin, normal CMP, urinalysis has 10 RBCs, no other signs of infection although this may be indicative of urinary tract infection. Case is discussed with Nicole who is the utility aide at the home where he resides. She has known this patient for 25 years. She is in charge of managing his medications. Patient does have good outpatient follow-up with neurology and he is seen by a visiting physician and nurse on a regular basis. He will be discharged home with outpatient follow-up. - Lab Data Result diagrams: 03/04/18 09:43 03/04/18 09:43 Lab Results 03/04/18 03/04/18 03/04/18 Range/Units 09:43 09:43 09:43 WBC 4.0 (3.8-10.6) k/uL RBC 3.82 L (4.30-5.90) m/uL Hgb 13.0 (13.0-17.5) gm/dL Hct 38.3 L (39.0-53.0) % MCV 100.4 H (80.0-100.0) fL MCH 34.1 (25.0-35.0) pg MCHC 33.9 (31.0-37.0) g/dL RDW 12.5 (11.5-15.5) % Plt Count 137 L (150-450) k/uL Neutrophils % 67 % Lymphocytes % 18 % Monocytes % 11 % Eosinophils % 1 % Basophils % 1 % Neutrophils # 2.7 (1.3-7.7) k/uL Lymphocytes # 0.7 L (1.0-4.8) k/uL Monocytes # 0.4 (0-1.0) k/uL Eosinophils # 0.1 (0-0.7) k/uL Basophils # 0.0 (0-0.2) k/uL PT (9.0-12.0) sec INR (<1.2) APTT (22.0-30.0) sec Sodium 139 (137-145) mmol/L Potassium 4.0 (3.5-5.1) mmol/L Chloride 101 (98-107) mmol/L Carbon Dioxide 28 (22-30) mmol/L Anion Gap 10 mmol/L BUN 25 H (9-20) mg/dL Creatinine 0.69 (0.66-1.25) mg/dL Est GFR (CKD-EPI)AfAm >90 (>60 ml/min/1.73 sqM) Est GFR (CKD-EPI)NonAf >90 (>60 ml/min/1.73 sqM) Glucose 155 H (74-99) mg/dL Calcium 9.4 (8.4-10.2) mg/dL Total Bilirubin 0.7 (0.2-1.3) mg/dL AST 38 (17-59) U/L ALT 20 L (21-72) U/L Alkaline Phosphatase 63 (38-126) U/L Total Protein 6.8 (6.3-8.2) g/dL Albumin 3.8 (3.5-5.0) g/dL Urine Color Yellow Urine Appearance Clear (Clear) Urine pH 7.5 (5.0-8.0) Ur Specific [place] 1.020 (1.001-1.035) Urine Protein Trace H (Negative) Urine Glucose (UA) 2+ H (Negative) Urine Ketones Negative (Negative) Urine Blood Small H (Negative) Urine Nitrite Negative (Negative) Urine Bilirubin Negative (Negative) Urine Urobilinogen 2.0 (<2.0) mg/dL Ur Leukocyte Esterase Negative (Negative) Urine RBC 10 H (0-5) /hpf Urine WBC <1 (0-5) /hpf Ur Squamous Epith Cells <1 (0-4) /hpf Hyaline Casts 1 (0-2) /lpf Urine Mucus Rare H (None) /hpf Urine Opiates Screen Not Detected (NotDetected) Ur Oxycodone Screen Not Detected (NotDetected) Urine Methadone Screen Not Detected (NotDetected) Ur Propoxyphene Screen Not Detected (NotDetected) Ur Barbiturates Screen Not Detected (NotDetected) U Tricyclic Antidepress Not Detected (NotDetected) Ur Phencyclidine Scrn Not Detected (NotDetected) Ur Amphetamines Screen Not Detected (NotDetected) U Methamphetamines Scrn Not Detected (NotDetected) U Benzodiazepines Scrn Not Detected (NotDetected) Urine Cocaine Screen Not Detected (NotDetected) U Marijuana (THC) Screen Not Detected (NotDetected) 03/04/18 Range/Units 09:43 WBC (3.8-10.6) k/uL RBC (4.30-5.90) m/uL Hgb (13.0-17.5) gm/dL Hct (39.0-53.0) % MCV (80.0-100.0) fL MCH (25.0-35.0) pg MCHC (31.0-37.0) g/dL RDW (11.5-15.5) % Plt Count (150-450) k/uL Neutrophils % % Lymphocytes % % Monocytes % % Eosinophils % % Basophils % % Neutrophils # (1.3-7.7) k/uL Lymphocytes # (1.0-4.8) k/uL Monocytes # (0-1.0) k/uL Eosinophils # (0-0.7) k/uL Basophils # (0-0.2) k/uL PT 11.4 (9.0-12.0) sec INR 1.2 H (<1.2) APTT 28.8 (22.0-30.0) sec Sodium (137-145) mmol/L Potassium (3.5-5.1) mmol/L Chloride (98-107) mmol/L Carbon Dioxide (22-30) mmol/L Anion Gap mmol/L BUN (9-20) mg/dL Creatinine (0.66-1.25) mg/dL Est GFR (CKD-EPI)AfAm (>60 ml/min/1.73 sqM) Est GFR (CKD-EPI)NonAf (>60 ml/min/1.73 sqM) Glucose (74-99) mg/dL Calcium (8.4-10.2) mg/dL Total Bilirubin (0.2-1.3) mg/dL AST (17-59) U/L ALT (21-72) U/L Alkaline Phosphatase (38-126) U/L Total Protein (6.3-8.2) g/dL Albumin (3.5-5.0) g/dL Urine Color Urine Appearance (Clear) Urine pH (5.0-8.0) Ur Specific [place] (1.001-1.035) Urine Protein (Negative) Urine Glucose (UA) (Negative) Urine Ketones (Negative) Urine Blood (Negative) Urine Nitrite (Negative) Urine Bilirubin (Negative) Urine Urobilinogen (<2.0) mg/dL Ur Leukocyte Esterase (Negative) Urine RBC (0-5) /hpf Urine WBC (0-5) /hpf Ur Squamous Epith Cells (0-4) /hpf Hyaline Casts (0-2) /lpf Urine Mucus (None) /hpf Urine Opiates Screen (NotDetected) Ur Oxycodone Screen (NotDetected) Urine Methadone Screen (NotDetected) Ur Propoxyphene Screen (NotDetected) Ur Barbiturates Screen (NotDetected) U Tricyclic Antidepress (NotDetected) Ur Phencyclidine Scrn (NotDetected) Ur Amphetamines Screen (NotDetected) U Methamphetamines Scrn (NotDetected) U Benzodiazepines Scrn (NotDetected) Urine Cocaine Screen (NotDetected) U Marijuana (THC) Screen (NotDetected) Disposition Clinical Impression: Confusion, UTI (urinary tract infection) Disposition: HOME SELF-CARE Condition: Good Instructions: Urinary Tract Infection in Men (ED) Prescriptions: Cephalexin [Keflex] 500 mg PO Q12HR #14 cap Is patient prescribed a controlled substance at d/c from ED?: No Referrals: None,Stated [Primary Care Provider] - 1-2 days Willa Bales MD [STAFF PHYSICIAN] - 1-2 days Time of Disposition: 12:02
--- NOTE | 2018-03-04 09:44 | CT ---
EXAMINATION TYPE: CT brain wo con DATE OF EXAM: 03/04/2018 COMPARISON: 02/28/2018 HISTORY: Confusion CT DLP: [address] of the brain was performed. The ventricles, basal cisterns and sulci overlying the cerebral convexities demonstrate mild enlargem ent. There is no evidence for intracranial hemorrhage or sulcal effacement. There is decreased attenuation about the periventricular white matter and deep white matter of both c erebral hemispheres, compatible with chronic small vessel ischemia. Differential diagnosis does inclu de demyelination. No mass effects are seen.No midline shift. Osseous calvarium is intact. If symptoms persist consider MRI. IMPRESSION: 1. Age related atrophic and chronic small vessel ischemic change without acute intracranial process s een at this time.
[2018-03-04 09:50] LABS: Basophils % (A) 1 %; Eosinophils # (A) 0.1 k/uL (0-0.7); Eosinophils % (A) 1 %; HCT 38.3 % (39.0-53.0); Lymphocytes # (A) 0.7 k/uL (1.0-4.8); Lymphocytes % (A) 18 %; MCH 34.1 pg (25.0-35.0); MCHC 33.9 g/dL (31.0-37.0); MCV 100.4 fL (80.0-100.0); Mean Platelet Volume 7.2; Monocytes # (A) 0.4 k/uL (0-1.0); Monocytes % (A) 11 %; Neutrophils # (A) 2.7 k/uL (1.3-7.7); Neutrophils % (A) 67 %; Platelet Count 137 k/uL (150-450); RBC 3.82 m/uL (4.30-5.90); RDW 12.5 % (11.5-15.5)
--- NOTE | 2018-03-04 09:57 | XR ---
EXAMINATION TYPE: XR chest 2V DATE OF EXAM: 03/04/2018 COMPARISON: March 09, 2017 HISTORY: Shortness of breath TECHNIQUE: Frontal and lateral views of the chest are obtained. FINDINGS: Scattered senescent parenchymal changes noted. Hyperinflation compatible with COPD. No evidence for infiltrate. No evidence for atelectasis. Heart size is stable. Mediastinal structures are stable and grossly unremarkable. No evidence for hilar prominence. Degenerative changes dorsal spine. IMPRESSION: 1. No evidence for acute pulmonary disease.
[2018-03-04 10:01] LABS: INR 1.2 (<1.2); Partial Thromboplastin Time 28.8 sec (22.0-30.0); Prothrombin Time 11.4 sec (9.0-12.0)
[2018-03-04 10:05] LABS: ALT 20 U/L (21-72); AST 38 U/L (17-59); Albumin 3.8 g/dL (3.5-5.0); Alkaline Phosphatase 63 U/L (38-126); Anion Gap 10 mmol/L; Appearance,Urine Clear (Clear); Bilirubin,Urine Negative (Negative); Blood Urea Nitrogen 25 mg/dL (9-20); Blood,Urine Small (Negative); Calcium 9.4 mg/dL (8.4-10.2); Carbon Dioxide 28 mmol/L (22-30); Chloride 101 mmol/L (98-107); Color,Urine Yellow; Glucose 155 mg/dL (74-99); Glucose,Urine (UA) 2+ (Negative); Hyaline Casts,Urine 1 /lpf (0-2); Ketones,Urine Negative (Negative); Leukocyte Esterase,Urine Negative (Negative); Mucus,Urine Rare /hpf; Nitrite,Urine Negative (Negative); PH, Urine 7.5 (5.0-8.0); Protein,Urine Trace (Negative); RBC,Urine 10 /hpf (0-5); Sodium 139 mmol/L (137-145); Squamous Epithelial Cell,Urine <1 /hpf (0-4); Total Bilirubin 0.7 mg/dL (0.2-1.3); Total Protein 6.8 g/dL (6.3-8.2); WBC,Urine <1 /hpf (0-5)
[2018-03-04 10:07] LABS: Amphetamine Screen,Urine Not Detected (NotDetected); Barbiturate Screen,Urine Not Detected (NotDetected); Benzodiazepines Screen,Urine Not Detected (NotDetected); Cocaine Screen,Urine Not Detected (NotDetected); Methadone Screen, Urine Not Detected (NotDetected); Opiate Screen,Urine Not Detected (NotDetected); Oxycodone Screen, Urine Not Detected (NotDetected); Phencyclidine Screen,Urine Not Detected (NotDetected); Tricyclic Antidepressant,Urine Not Detected (NotDetected); Urn Cannabinoid Scrn Not Detected (NotDetected)
[2018-03-04 12:17] VITALS: BP 145/75; PULSE 50; RESP 14; TEMP 97.2
== END 2018-03-04 12:33 | disposition home or self-care (01) ==
LOC: EC 08:58
DX: N39.0 Urinary tract infection, site not specified (principal); R41.0 Disorientation, unspecified; R00.1 Bradycardia, unspecified; I48.91 Unspecified atrial fibrillation; I10 Essential (primary) hypertension; G40.909 Epilepsy, unspecified, not intractable, without status epilepticus; F41.9 Anxiety disorder, unspecified; Z87.891 Personal history of nicotine dependence; Z79.01 Long term (current) use of anticoagulants; Z79.82 Long term (current) use of aspirin; Z79.899 Other long term (current) drug therapy; Z95.0 Presence of cardiac pacemaker
CPT/HCPCS: 36415; 70450; 71046; 80053; 80306; 81001; 85025; 85610; 85730; 87086; 93005; 99285

== ENCOUNTER → 2018-03-09 | Outpatient (CLI) | payer MEDICARE, OTHER ==
[2018-03-09 10:38] LABS: Carbamazepine (Tegretol) 5.4 ug/mL
[2018-03-09 10:41] LABS: Valproic Acid (Depakene) 52.4 ug/mL
[2018-03-09 11:07] LABS: Basophils % (A) 1 %; Eosinophils % (A) 1 %; HCT 34.6 % (39.0-53.0); HGB 11.5 gm/dL (13.0-17.5); Lymphocytes # (A) 0.9 k/uL (1.0-4.8); Lymphocytes % (A) 22 %; MCH 33.5 pg (25.0-35.0); MCHC 33.1 g/dL (31.0-37.0); MCV 101.1 fL (80.0-100.0); Mean Platelet Volume 7.9; Monocytes # (A) 0.4 k/uL (0-1.0); Monocytes % (A) 10 %; Neutrophils # (A) 2.6 k/uL (1.3-7.7); Neutrophils % (A) 65 %; Platelet Count 159 k/uL (150-450); RBC 3.42 m/uL (4.30-5.90); RDW 12.7 % (11.5-15.5)
== END | disposition home or self-care (01) ==
LOC: LABWHC1 08:48
PROVIDERS: ATTEND Psychiatry & Neurology Neurology
DX: G40.209 Localization-related (focal) (partial) symptomatic epilepsy and epileptic syndromes with complex partial seizures, not intractable, without status epilepticus (principal)
CPT/HCPCS: 36415; 80156; 80164; 84450; 84460; 85025

== ENCOUNTER 2018-04-07 11:36 | Emergency (ER) | payer MEDICARE, OTHER ==
--- NOTE | 2018-04-07 11:49 | ED ---
General Adult HPI - General Chief complaint: Fall Stated complaint: Fall - History of Present Illness Initial comments: Dictation was produced using [employer] dictation software. please excuse any grammatical, word or spelling errors. Chief Complaint: 68-year-old male past medical history of atrial fibrillation, diabetes, hypertension, seizures presents after fall. History of Present Illness: Patient is a 68-year-old male presents after fall. His multiple comorbidities. Approximate 30 minutes prior to arrival patient was walking a large dog with his walker. The dog twisted him up causing him to fall. He did fall down and struck his head. No loss of consciousness. Patient has no complaints at this time. He noticed some blood coming from his head. His landlord saw him sitting on the sidewalk. EMS was called patient was transferred. She has no complaints at this time. Patient does not take any other tenderness. The ROS documented in this emergency department record has been reviewed and confirmed by me. Those systems with pertinent positive or negative responses have been documented in the HPI. All other systems are other negative and/or noncontributory. - Related Data Home Medications Medication Instructions Recorded Confirmed Aspirin 81 mg PO DAILY 10/10/15 04/07/18 Cholecalciferol [Vitamin D3] 1,000 unit PO DAILY 10/10/15 04/07/18 Cyanocobalamin [Vitamin B-12] 1,000 mcg PO DAILY 10/10/15 04/07/18 Divalproex [Depakote] 250 mg PO DAILY 10/10/15 04/07/18 Divalproex [Depakote] 500 mg PO BID 10/10/15 04/07/18 Gabapentin [Neurontin] 100 mg PO QID 10/10/15 04/07/18 Isosorbide Mononitrate [Isosorbide 30 mg PO HS 10/10/15 04/07/18 Mononitrate ER] [place]-3 Fatty Acids/Fish Oil [Fish 1 cap PO BID 10/10/15 04/07/18 Oil 1,000 mg Softgel] carBAMazepine [Carbatrol] 100 mg PO DAILY 10/10/15 04/07/18 carBAMazepine [Carbatrol] 300 mg PO BID 10/10/15 04/07/18 Furosemide [Lasix] 20 mg PO BID 06/11/17 04/07/18 Simvastatin [Zocor] 10 mg PO HS 06/11/17 04/07/18 Apixaban [Eliquis] 5 mg PO BID 03/04/18 04/07/18 Atenolol [Tenormin] 25 mg PO DAILY 03/04/18 04/07/18 Eslicarbazepine Acetate [Aptiom] 600 mg PO DAILY 03/04/18 04/07/18 Levothyroxine Sodium [Synthroid] 100 mcg PO DAILY 03/04/18 04/07/18 Lisinopril [Zestril] 10 mg PO DAILY 03/04/18 04/07/18 Polyethylene Glycol 3350 [Clearlax] 17 gm PO DAILY PRN 03/04/18 04/07/18 Potassium Chloride [K-Tab ER] 10 meq PO DAILY 03/04/18 04/07/18 Sennosides [Senna] 17.2 mg PO HS 03/04/18 04/07/18 Allergies Allergy/AdvReac Type Severity Reaction Status Date / Time No Known Allergies Allergy Verified 04/07/18 12:29 Review of Systems ROS Statement: Those systems with pertinent positive or pertinent negative responses have been documented in the HPI. ROS Other: All systems not noted in ROS Statement are negative. Past Medical History Past Medical History: Atrial Fibrillation, Diabetes Mellitus, Hypertension, Seizure Disorder Additional Past Medical History / Comment(s): Hepatitis B carrier. History of Any Multi-Drug Resistant Organisms: None Reported Past Surgical History: Bowel Resection, Orthopedic Surgery, Pacemaker Additional Past Surgical History / Comment(s): cataract surgery Past Psychological History: Anxiety Smoking Status: Former smoker Past Alcohol Use History: None Reported Past Drug Use History: None Reported General Exam - General Exam Comments Initial Comments: PHYSICAL EXAM: General Impression: Alert and oriented x3, not in acute distress HEENT: The 1 cm hematoma over the left forehead, there is 2 mm superficial avulsion to the forehead without any active hemorrhaging, rest of the head is atraumatic, extra-ocular movements intact, pupils equal and reactive to light bilaterally, mucous membranes moist. Cardiovascular: Heart regular rate and rhythm, S1&S2 audible, no murmurs, rubs or gallops Chest: Lungs clear to auscultation bilaterally, no rhonchi, no wheeze, no rales Abdomen: Bowel sounds present, abdomen soft, non-tender, non-distended, no organomegaly Musculoskeletal: Pulses present and equal in all extremities, no peripheral edema Motor: Power 5/5 bilaterally, no focal deficits noted Neurological: CN II-XII grossly intact, no focal motor or sensory deficits noted Skin: Intact with no visualized rashes Psych: Normal affect and mood Course Vital Signs 04/07/18 11:43 Temperature 97.8 F Pulse Rate 57 L Respiratory 18 Rate Blood Pressure 149/93 O2 Sat by Pulse 100 Oximetry Medical Decision Making - Medical Decision Making ED course: 68-year-old male presents after a fall and head contusion. Patient has no other complaints at this time. Patient's fall secondary to mechanical fall. He was witnessed walking a large dog when the dog caused him to fall. Vital signs upon arrival are within acceptable limits. Medications were reviewed. Patient is not on any blood thinners. Patient does have history of pacemaker placed for bradycardia.Laboratory evaluation obtained. Patient has stable lab findings. Computed tomography scan of the head obtained showing no acute processes. CT C-spine is atraumatic. X-ray and pelvis x-ray is unremarkable. Cervical collar was cleared. Patient is at baseline. Plan is for patient to be discharged to follow up with primary care physician. Patient states his tetanus shot was updated this year. Laceration of the forehead was repaired using Steri-Strips. Is very superficial and well approximated. - Lab Data Result diagrams: 04/07/18 12:04 04/07/18 12:04 Lab Results 04/07/18 04/07/18 04/07/18 Range/Units 12:04 12:04 12:04 WBC 4.1 (3.8-10.6) k/uL RBC 3.78 L (4.30-5.90) m/uL Hgb 12.3 L (13.0-17.5) gm/dL Hct 38.2 L (39.0-53.0) % MCV 101.1 H (80.0-100.0) fL MCH 32.5 (25.0-35.0) pg MCHC 32.2 (31.0-37.0) g/dL RDW 12.5 (11.5-15.5) % Plt Count 179 (150-450) k/uL Neutrophils % 57 % Lymphocytes % 29 % Monocytes % 10 % Eosinophils % 2 % Basophils % 1 % Neutrophils # 2.3 (1.3-7.7) k/uL Lymphocytes # 1.2 (1.0-4.8) k/uL Monocytes # 0.4 (0-1.0) k/uL Eosinophils # 0.1 (0-0.7) k/uL Basophils # 0.0 (0-0.2) k/uL PT 12.2 H (9.0-12.0) sec INR 1.3 H (<1.2) Sodium 139 (137-145) mmol/L Potassium 4.6 (3.5-5.1) mmol/L Chloride 102 (98-107) mmol/L Carbon Dioxide 28 (22-30) mmol/L Anion Gap 9 mmol/L BUN 27 H (9-20) mg/dL Creatinine 0.83 (0.66-1.25) mg/dL Est GFR (CKD-EPI)AfAm >90 (>60 ml/min/1.73 sqM) Est GFR (CKD-EPI)NonAf 90 (>60 ml/min/1.73 sqM) Glucose 117 H (74-99) mg/dL Calcium 9.5 (8.4-10.2) mg/dL Disposition Clinical Impression: Fall Disposition: HOME SELF-CARE Condition: Good Instructions: Fall Prevention for Older Adults (ED) Is patient prescribed a controlled substance at d/c from ED?: No Referrals: Aashish Marina MD [Primary Care Provider] - 1-2 days Time of Disposition: 14:22
[2018-04-07 12:06] VITALS: RESP 18
[2018-04-07 12:33] LABS: Basophils % (A) 1 %; Eosinophils # (A) 0.1 k/uL (0-0.7); Eosinophils % (A) 2 %; HCT 38.2 % (39.0-53.0); HGB 12.3 gm/dL (13.0-17.5); INR 1.3 (<1.2); Lymphocytes # (A) 1.2 k/uL (1.0-4.8); Lymphocytes % (A) 29 %; MCH 32.5 pg (25.0-35.0); MCHC 32.2 g/dL (31.0-37.0); MCV 101.1 fL (80.0-100.0); Mean Platelet Volume 7.6; Monocytes # (A) 0.4 k/uL (0-1.0); Monocytes % (A) 10 %; Neutrophils # (A) 2.3 k/uL (1.3-7.7); Neutrophils % (A) 57 %; Platelet Count 179 k/uL (150-450); Prothrombin Time 12.2 sec (9.0-12.0); RBC 3.78 m/uL (4.30-5.90); RDW 12.5 % (11.5-15.5); WBC 4.1 k/uL (3.8-10.6)
[2018-04-07 12:38] LABS: Anion Gap 9 mmol/L; Blood Urea Nitrogen 27 mg/dL (9-20); Calcium 9.5 mg/dL (8.4-10.2); Carbon Dioxide 28 mmol/L (22-30); Chloride 102 mmol/L (98-107); Glucose 117 mg/dL (74-99); Sodium 139 mmol/L (137-145)
[2018-04-07 12:40] LABS: Potassium 4.6 mmol/L (3.5-5.1)
--- NOTE | 2018-04-07 13:41 | XR ---
EXAMINATION TYPE: XR chest 2V DATE OF EXAM: 04/07/2018 COMPARISON: 02/24/2018 TECHNIQUE: PA and lateral views submitted. HISTORY: Pain FINDINGS: The lungs are clear and there is no pneumothorax, pleural effusion, or focal pneumonia. Cardiac dev ice and cardiomegaly noted. Diffuse osteopenia with arthropathy of the shoulders. Atherosclerotic joaquin nge aorta. Hyperinflation of the lungs. IMPRESSION: 1. No acute process. Correlate for cardiomegaly and COPD.
--- NOTE | 2018-04-07 13:43 | XR ---
EXAMINATION TYPE: XR pelvis AP view DATE OF EXAM: 04/07/2018 COMPARISON: NONE HISTORY: Pain Findings: There is severe arthropathy of the hips with complete loss of joint space. Diffuse osteopenia noted. SI joints symmetric. Hypertrophic and degenerative change involving the lower lumbar spine. IMPRESSION: 1. Severe arthropathy of the hip joints with complete loss of joint space and remodeling of the femor al head and acetabulum.
--- NOTE | 2018-04-07 13:51 | CT ---
EXAMINATION TYPE: CT brain yasmeen de jesus DATE OF EXAM: 04/07/2018 COMPARISON: 03/04/2018. HISTORY: Fall CT DLP: 1221.9 mGycm, Automated exposure control for dose reduction was used. CONTRAST: Patient injected with 0 mL of Isovue 300. CT of the brain is performed utilizing 3 mm thick sections through the posterior fossa and 3 mm thick sections through the remaining calvarium. Study is performed within 24 hours of arrival to the hospital. No abnormal hyperdensity is present to suggest an acute intracranial hemorrhage. No mass lesion is evident. No acute infarcts are evident. Mild periventricular white matter hypodensity is present, likely on t he basis of chronic white matter ischemic changes. Ventricles and sulci are prominent for the patient age. Paranasal sinuses and mastoid air cells within the [id number] are clear. 0 left frontal superficial soft tissue swelling is present. No underlying fracture is evident. IMPRESSIONS: 1. Age-related atrophy CT cervical spine. COMPARISON: None CT of the cervical spine is performed in the axial plane at 2 mm thick sections. Reconstructed image s in the coronal, and sagittal plane are reviewed on the computer. No acute fractures are evident. There is a mild anterolisthesis of C3 anteriorly on C4. There is loss of disc height throughout the cervical spine. This is most notable C3-4 C4-5. Some vacu um phenomenon is noted C7-T1. Vertebral body heights are preserved. No spinal canal stenosis is evident. There is severe left foraminal stenosis due to uncovertebral joint hypertrophy and facet hypertrophy on the left at C3-4. Some posterior endplate changes are present C4 with mild anterior thecal sac com pression. Uncovertebral joint hypertrophy and endplate changes are present C4-5 with severe bilateral foraminal stenosis moderate anterior thecal sac compression. Uncovertebral joint hypertrophy is cont ributing to severe foraminal stenosis C5-6 bilaterally and moderate right and mild left C6-7 foramina l stenosis. IMPRESSIONS: 1. Degenerative disc changes throughout the cervical spine. 2. Uncovertebral joint hypertrophy contributing to severe foraminal stenosis and the upper and mid ce rvical spine discussed above. 3. Grade 1 Anterolisthesis of C3 anteriorly on C4.
[2018-04-07 14:32] VITALS: BP 131/70; PULSE 60; TEMP 97
== END 2018-04-07 14:33 | disposition home or self-care (01) ==
LOC: EC 11:36
DX: S01.81XA Laceration without foreign body of other part of head, initial encounter (principal); I10 Essential (primary) hypertension; I48.91 Unspecified atrial fibrillation; G40.909 Epilepsy, unspecified, not intractable, without status epilepticus; F41.9 Anxiety disorder, unspecified; Z79.01 Long term (current) use of anticoagulants; Z79.82 Long term (current) use of aspirin; Z79.899 Other long term (current) drug therapy; Z95.0 Presence of cardiac pacemaker; W01.0XXA Fall on same level from slipping, tripping and stumbling without subsequent striking against object, initial encounter; Y93.K1 Activity, walking an animal; Y92.480 Sidewalk as the place of occurrence of the external cause
CPT/HCPCS: 36415; 70450; 71046; 72125; 72170; 80048; 85025; 85610; 93005; 99284

== ENCOUNTER 2018-05-30 02:22 | Inpatient (IN) | payer MEDICARE ==
--- NOTE | 2018-05-30 03:32 | ED ---
Fall HPI - General Chief Complaint: Fall Stated Complaint: Fall Time Seen by Provider: 05/30/18 03:31 Source: patient, EMS Mode of arrival: EMS - History of Present Illness MD Complaint: fall Onset/Timin -: hour(s) Fall From: standing When Fall Occurred: 1 hour PANEL BEATER Fall Witnessed: no Place Fall Occurred: home Loss of Consciousness: unsure Prolonged Down Time?: no Symptoms Prior to Fall: dizziness Location: head - Related Data Home Medications Medication Instructions Recorded Confirmed Aspirin 81 mg PO DAILY 10/10/15 04/07/18 Cholecalciferol [Vitamin D3] 1,000 unit PO DAILY 10/10/15 04/07/18 Cyanocobalamin [Vitamin B-12] 1,000 mcg PO DAILY 10/10/15 04/07/18 Divalproex [Depakote] 250 mg PO DAILY 10/10/15 04/07/18 Divalproex [Depakote] 500 mg PO BID 10/10/15 04/07/18 Gabapentin [Neurontin] 100 mg PO QID 10/10/15 04/07/18 Isosorbide Mononitrate [Isosorbide 30 mg PO HS 10/10/15 04/07/18 Mononitrate ER] [place]-3 Fatty Acids/Fish Oil [Fish 1 cap PO BID 10/10/15 04/07/18 Oil 1,000 mg Softgel] carBAMazepine [Carbatrol] 100 mg PO DAILY 10/10/15 04/07/18 carBAMazepine [Carbatrol] 300 mg PO BID 10/10/15 04/07/18 Furosemide [Lasix] 20 mg PO BID 06/11/17 04/07/18 Simvastatin [Zocor] 10 mg PO HS 06/11/17 04/07/18 Apixaban [Eliquis] 5 mg PO BID 03/04/18 04/07/18 Atenolol [Tenormin] 25 mg PO DAILY 03/04/18 04/07/18 Eslicarbazepine Acetate [Aptiom] 600 mg PO DAILY 03/04/18 04/07/18 Levothyroxine Sodium [Synthroid] 100 mcg PO DAILY 03/04/18 04/07/18 Lisinopril [Zestril] 10 mg PO DAILY 03/04/18 04/07/18 Polyethylene Glycol 3350 [Clearlax] 17 gm PO DAILY PRN 03/04/18 04/07/18 Potassium Chloride [K-Tab ER] 10 meq PO DAILY 03/04/18 04/07/18 Sennosides [Senna] 17.2 mg PO HS 03/04/18 04/07/18 Allergies Allergy/AdvReac Type Severity Reaction Status Date / Time No Known Allergies Allergy Verified 05/30/18 02:38 Review of Systems ROS Statement: Those systems with pertinent positive or pertinent negative responses have been documented in the HPI. ROS Other: All systems not noted in ROS Statement are negative. Past Medical History Past Medical History: Atrial Fibrillation, Diabetes Mellitus, Hypertension, Seizure Disorder Additional Past Medical History / Comment(s): Hepatitis B carrier. History of Any Multi-Drug Resistant Organisms: None Reported Past Surgical History: Bowel Resection, Orthopedic Surgery, Pacemaker Additional Past Surgical History / Comment(s): cataract surgery Past Psychological History: Anxiety Smoking Status: Former smoker Past Alcohol Use History: None Reported Past Drug Use History: None Reported General Exam Limitations: no limitations, language barrier Course Vital Signs 05/30/18 02:34 Temperature 98.6 F Pulse Rate 71 Respiratory 20 Rate Blood Pressure 134/87 O2 Sat by Pulse 100 Oximetry Medical Decision Making - Lab Data Result diagrams: 05/30/18 02:49 05/30/18 02:49 Lab Results 05/30/18 05/30/18 05/30/18 Range/Units 02:49 02:49 02:49 WBC 7.1 (3.8-10.6) k/uL RBC 3.15 L (4.30-5.90) m/uL Hgb 10.3 L (13.0-17.5) gm/dL Hct 31.4 L (39.0-53.0) % MCV 99.6 (80.0-100.0) fL MCH 32.6 (25.0-35.0) pg MCHC 32.7 (31.0-37.0) g/dL RDW 12.3 (11.5-15.5) % Plt Count 290 (150-450) k/uL Neutrophils % 75 % Lymphocytes % 12 % Monocytes % 10 % Eosinophils % 1 % Basophils % 0 % Neutrophils # 5.3 (1.3-7.7) k/uL Lymphocytes # 0.9 L (1.0-4.8) k/uL Monocytes # 0.7 (0-1.0) k/uL Eosinophils # 0.1 (0-0.7) k/uL Basophils # 0.0 (0-0.2) k/uL PT 11.5 (9.0-12.0) sec INR 1.1 (<1.2) APTT 27.7 (22.0-30.0) sec Sodium 137 (137-145) mmol/L Potassium 4.1 (3.5-5.1) mmol/L Chloride 102 (98-107) mmol/L Carbon Dioxide 29 (22-30) mmol/L Anion Gap 6 mmol/L BUN 23 H (9-20) mg/dL Creatinine 0.69 (0.66-1.25) mg/dL Est GFR (CKD-EPI)AfAm >90 (>60 ml/min/1.73 sqM) Est GFR (CKD-EPI)NonAf >90 (>60 ml/min/1.73 sqM) Glucose 109 H (74-99) mg/dL Calcium 8.6 (8.4-10.2) mg/dL Total Bilirubin 0.4 (0.2-1.3) mg/dL AST 39 (17-59) U/L ALT 36 (21-72) U/L Alkaline Phosphatase 94 (38-126) U/L Total Protein 5.9 L (6.3-8.2) g/dL Albumin 2.8 L (3.5-5.0) g/dL Urine Color Urine Appearance (Clear) Urine pH (5.0-8.0) Ur Specific [place] (1.001-1.035) Urine Protein (Negative) Urine Glucose (UA) (Negative) Urine Ketones (Negative) Urine Blood (Negative) Urine Nitrite (Negative) Urine Bilirubin (Negative) Urine Urobilinogen (<2.0) mg/dL Ur Leukocyte Esterase (Negative) 05/30/18 Range/Units 02:49 WBC (3.8-10.6) k/uL RBC (4.30-5.90) m/uL Hgb (13.0-17.5) gm/dL Hct (39.0-53.0) % MCV (80.0-100.0) fL MCH (25.0-35.0) pg MCHC (31.0-37.0) g/dL RDW (11.5-15.5) % Plt Count (150-450) k/uL Neutrophils % % Lymphocytes % % Monocytes % % Eosinophils % % Basophils % % Neutrophils # (1.3-7.7) k/uL Lymphocytes # (1.0-4.8) k/uL Monocytes # (0-1.0) k/uL Eosinophils # (0-0.7) k/uL Basophils # (0-0.2) k/uL PT (9.0-12.0) sec INR (<1.2) APTT (22.0-30.0) sec Sodium (137-145) mmol/L Potassium (3.5-5.1) mmol/L Chloride (98-107) mmol/L Carbon Dioxide (22-30) mmol/L Anion Gap mmol/L BUN (9-20) mg/dL Creatinine (0.66-1.25) mg/dL Est GFR (CKD-EPI)AfAm (>60 ml/min/1.73 sqM) Est GFR (CKD-EPI)NonAf (>60 ml/min/1.73 sqM) Glucose (74-99) mg/dL Calcium (8.4-10.2) mg/dL Total Bilirubin (0.2-1.3) mg/dL AST (17-59) U/L ALT (21-72) U/L Alkaline Phosphatase (38-126) U/L Total Protein (6.3-8.2) g/dL Albumin (3.5-5.0) g/dL Urine Color Dark Yellow Urine Appearance Clear (Clear) Urine pH 6.0 (5.0-8.0) Ur Specific [place] 1.024 (1.001-1.035) Urine Protein Trace H (Negative) Urine Glucose (UA) 1+ H (Negative) Urine Ketones Negative (Negative) Urine Blood Negative (Negative) Urine Nitrite Negative (Negative) Urine Bilirubin Negative (Negative) Urine Urobilinogen 2.0 (<2.0) mg/dL Ur Leukocyte Esterase Negative (Negative) - EKG Data -: EKG Interpreted by Sd EKG shows normal: axis, intervals, QRS complexes, ST-T waves (Normal normal) Rate: normal (Underlying rhythm appears to be atrial fibrillation with rate approximately 67 bpm) Disposition Clinical Impression: Fall, Pneumonia Disposition: ADMITTED IP TO THIS [facility] Condition: Fair Is patient prescribed a controlled substance at d/c from ED?: No Referrals: Aashish Marina MD [Primary Care Provider] - 1-2 days
[2018-05-30 04:28] LABS: Basophils % (A) 0 %; Eosinophils # (A) 0.1 k/uL (0-0.7); Eosinophils % (A) 1 %; HCT 31.4 % (39.0-53.0); HGB 10.3 gm/dL (13.0-17.5); Lymphocytes # (A) 0.9 k/uL (1.0-4.8); Lymphocytes % (A) 12 %; MCH 32.6 pg (25.0-35.0); MCHC 32.7 g/dL (31.0-37.0); MCV 99.6 fL (80.0-100.0); Mean Platelet Volume 7.6; Monocytes # (A) 0.7 k/uL (0-1.0); Monocytes % (A) 10 %; Neutrophils # (A) 5.3 k/uL (1.3-7.7); Neutrophils % (A) 75 %; Platelet Count 290 k/uL (150-450); RBC 3.15 m/uL (4.30-5.90); RDW 12.3 % (11.5-15.5); WBC 7.1 k/uL (3.8-10.6)
[2018-05-30 04:38] LABS: ALT 36 U/L (21-72); AST 39 U/L (17-59); Albumin 2.8 g/dL (3.5-5.0); Alkaline Phosphatase 94 U/L (38-126); Anion Gap 6 mmol/L; Blood Urea Nitrogen 23 mg/dL (9-20); Calcium 8.6 mg/dL (8.4-10.2); Carbon Dioxide 29 mmol/L (22-30); Chloride 102 mmol/L (98-107); Glucose 109 mg/dL (74-99); Potassium 4.1 mmol/L (3.5-5.1); Sodium 137 mmol/L (137-145); Total Bilirubin 0.4 mg/dL (0.2-1.3); Total Protein 5.9 g/dL (6.3-8.2)
[2018-05-30 04:42] LABS: Appearance,Urine Clear (Clear); INR 1.1 (<1.2); Partial Thromboplastin Time 27.7 sec (22.0-30.0); Prothrombin Time 11.5 sec (9.0-12.0); Specific Gravity,Urine 1.024 (1.001-1.035)
[2018-05-30 04:43] LABS: Bilirubin,Urine Negative (Negative); Blood,Urine Negative (Negative); Color,Urine Dark Yellow; Glucose,Urine (UA) 1+ (Negative); Ketones,Urine Negative (Negative); Leukocyte Esterase,Urine Negative (Negative); Nitrite,Urine Negative (Negative); Protein,Urine Trace (Negative)
--- NOTE | 2018-05-30 04:47 | CT ---
EXAMINATION TYPE: CT brain yasmeen wo con DATE OF EXAM: 05/30/2018 COMPARISON: 04/07/2018 HISTORY: fall neck pain. Headache. CT DLP: 1344.7 mGycm Automated exposure control for dose reduction was used. TECHNIQUE: CT scan of the head and cervical spine are performed without contrast. FINDINGS: There is cerebral cortical atrophy. There is no mass effect nor midline shift. There is n o sign of intracranial hemorrhage. There is 2 cm white matter hypodense area in the right posterior f rontal lobe. Calvarium is intact. The cervical vertebra have normal alignment. There is narrowing of disc spaces throughout the cervica l spine. There is no compression fracture. Posterior elements are intact. There is mild facet arthrop athy. There is mucosal thickening in the sphenoid sinus. IMPRESSION: Cerebral atrophy. Chronic small vessel ischemia. There is new sphenoid sinusitis compared to old exam . No acute intracranial abnormality. Spondylotic changes in the cervical spine. No fracture. No change compared to old exam.
--- NOTE | 2018-05-30 04:49 | XR ---
EXAMINATION TYPE: XR chest 2V DATE OF EXAM: 05/30/2018 COMPARISON: 04/07/2018 HISTORY: Chest pain TECHNIQUE: Frontal and lateral views of the chest are obtained. FINDINGS: Heart is normal. There is airspace consolidation in the right middle lobe. There is left a xillary pacemaker with the lead tip in the right ventricle. There is no pleural effusion. Bony thorax is intact. IMPRESSION: There is new right middle lobe pneumonia compared to old exam. Normal heart.
[2018-05-30] MEDS ORDERED: AZITHROMYCIN 500 MG TAB PO STA (05:19)
--- NOTE | 2018-05-30 05:37 | XR ---
EXAMINATION TYPE: XR knee complete RT DATE OF EXAM: 05/30/2018 COMPARISON: NONE HISTORY: Knee pain TECHNIQUE: 3 views FINDINGS: I see no fracture nor dislocation. There is no sign of joint effusion. There is mild vascul ar calcification. IMPRESSION: No acute abnormality of the right knee. Mild osteoarthritis.
[2018-05-30] MEDS ORDERED: PNEUMONIA PROTOCOL UTILIZED 1 EACH MISC PO PRN (06:35)
[2018-05-30] MEDS ORDERED: POLYETHYLENE GLYCOL 3350 17 GM POWD.PACK PO PRN (06:36)
[2018-05-30] MEDS: SODIUM CHLORIDE 0.9% 1,000 ML IV SCH ×2 (08:51→17:47)
[2018-05-30] MEDS ORDERED: FUROSEMIDE 20 MG TAB PO SCH (09:00)
[2018-05-30] MEDS ORDERED: ATENOLOL 25 MG TAB PO SCH (09:00)
[2018-05-30] MEDS: carBAMazepine 100 MG TAB.ER.12H PO SCH (09:36)
[2018-05-30] MEDS: carBAMazepine 300 MG CPMP.12HR PO SCH ×2 (09:36→20:38)
[2018-05-30] MEDS: DIVALPROEX 250 MG TABLET.DR PO SCH (09:36)
[2018-05-30] MEDS: DIVALPROEX 500 MG TABLET.DR PO SCH ×2 (09:44→20:38)
[2018-05-30] MEDS: CHOLECALCIFEROL 1,000 UNIT TAB PO SCH (09:44)
[2018-05-30] MEDS: APIXABAN 5 MG TAB PO SCH ×2 (09:44→20:38)
[2018-05-30] MEDS: CYANOCOBALAMIN 500 MCG TAB PO SCH (09:44)
[2018-05-30] MEDS: GABAPENTIN 100 MG CAP PO SCH ×5 (09:44→20:38)
[2018-05-30] MEDS: ASPIRIN 81 MG PO SCH (09:45)
[2018-05-30] MEDS: LISINOPRIL 10 MG TAB PO SCH (09:45)
[2018-05-30] MEDS: POTASSIUM CHLORIDE ER 10 MEQ TAB.ER.PRT PO SCH (09:45)
[2018-05-30] MEDS: ESLICARBAZEPINE ACETATE 600 MG PO SCH (10:02)
[2018-05-30] MEDS: LEVOTHYROXINE 100 MCG TAB PO SCH (10:02)
[2018-05-30] MEDS: OXYBUTYNIN 10 MG TAB.ER.24 PO SCH (12:44)
[2018-05-30 17:23] LABS: Glucose,Whole Blood 176 mg/dL (75-99)
[2018-05-30] MEDS: ATORVASTATIN 10 MG TAB PO SCH (20:38)
[2018-05-30] MEDS: ISOSORBIDE MONONITRATE ER 30 MG TAB.ER.24H PO SCH (20:38)
[2018-05-30] MEDS: FUROSEMIDE 10 MG/ML 4 ML VIAL IV SCH (20:38)
[2018-05-30] MEDS: SENNOSIDES 8.6 MG TAB PO SCH (20:44)
--- NOTE | 2018-05-30 22:53 | HP ---
HISTORY AND PHYSICAL DATE OF ADMISSION: 05/30/2018 DATE OF SERVICE: 05/30/2018 PRESENTING COMPLAINT: Tired, short of breath. HISTORY OF PRESENTING COMPLAINT: This is a 68-year-old patient followed by Dr. Marina from [facility]. Chronic stable medical conditions include atrial fibrillation, on blood thinners, diabetes mellitus type 2, hyperlipidemia, hypertension, seizure disorder, pacemaker, hepatitis B carrier, hypothyroid. The patient states he has been a bit short of breath and noticed edema in his legs. Also because his bed is broken, he sits up in a chair at least for last 1 week and has noticed some increased swelling of lower extremities. Some shortness of breath is apparent. Minimal cough if any. No fever. No chills. No sputum production. Appetite is okay. Does feel weak and tired and is finding it is difficult to get up even from the toilet seat. He has to hold the bar and put his hand on the seat before he can get up and when he walks he is finding it difficult to lift his legs up. No trouble with his arm. He is able to feed himself. Appetite is okay and does not think he has had any fever or chills. Overall, run down. REVIEW OF SYSTEMS: CONSTITUTIONAL: Tired. HEENT none. RESPIRATORY: As above. CARDIOVASCULAR as above. GASTROINTESTINAL: None. GENITOURINARY: Urinary incontinence. DERMATOLOGICAL: None. HEMATOLOGICAL: None. LYMPHATICS: None. PSYCHIATRIC: Slightly forgetful. NEUROLOGICAL: None. PAST MEDICAL HISTORY: Atrial fibrillation, diabetes, hyperlipidemia, hypertension, pacemaker, diet-controlled diabetes type 2, hepatitis C carrier, seizure a long time ago, hypothyroid, urinary incontinence at times, hematuria, constipation. PAST SURGICAL HISTORY: Bowel resection, orthopedic surgery, pacemaker, stent in 2003, cardiac cath in 2009, bowel resection due to blockage, bilateral cataract removal, left little finger reattached. PSYCH HISTORY: History of bipolar. 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 Resides at [employer] room and board. Uses a cane. He does maintain his room. Alcohol occasionally, stopped in 1971. Does not smoke. FAMILY HISTORY: Mother of a heart being weak. HOME MEDICATIONS: 1. Carbatrol 300 mg b.i.d. and 100 mg daily. 2. Zocor 10 mg q.h.s. 3. Senna 17.2 mg p.o. q.h.s. 4. Potassium 10 mEq a day. 5. Polyethylene glycol 17 grams p.o. daily p.r.n. 6. Ditropan XL 10 mg a day. 7. Fish oil 1 capsule p.o. daily. 8. Zestril 10 mg p.o. daily. 9. Synthroid 100 mcg p.o. daily. 10.Imdur ER 30 mg q.h.s. 11.Neurontin 100 mg q.i.d. 12.Lasix 20 mg b.i.d. 13.Colace 200 mg at bedtime. 14.Depakote 500 mg b.i.d. 15.Depakote 250 mg p.o. daily. 16.Vitamin B12 1000 mcg a day. 17.Vitamin D3 1000 units p.o. daily. 18.Tenormin 25 mg p.o. daily. 19.Aspirin 81 mg p.o. daily. 20.Eliquis 5 mg b.i.d. ALLERGIES: None. PHYSICAL EXAMINATION: VITAL SIGNS ON PRESENTATION: Temperature 98.6, pulse 71, respiration 20, blood pressure 134/87, pulse 100 percent on room air. GENERAL APPEARANCE: Thin build, sitting up, awake. EYES: Pupils equal. Conjunctivae pale. HEENT: External appearance of nose and ears normal. Oral cavity normal. NECK: JVD unable to assess. Mass not palpable. RESPIRATORY: Effort normal. LUNGS: Decreased breath sounds. CARDIOVASCULAR: 1st and 2nd sounds normal. Minimal edema. ABDOMEN: Soft, nontender. Liver and spleen not palpable. LYMPHATICS: No lymph nodes palpable in the neck and axilla. PSYCHIATRY: Patient is able to answer most questions. NEUROLOGICAL: Pupils equal. Cranial nerves grossly intact. Power and sensation grossly intact. MUSCULOSKELETAL: Evidence of osteoarthritis especially in the hands. NEUROLOGICAL: The patient is not really able to lift his legs off the bed. INVESTIGATIONS: White count 7.1, hemoglobin 10.3, potassium 4.1, BUN 23, creatinine 0.69, albumin 2.8. UA positive for proteinuria, 1+. EKG tracing personally reviewed by me shows atrial fibrillation, rate controlled. Chest x-ray film personally reviewed by me shows a pacemaker and pacemaker lead. The right lobe infiltrate and some venous prominence. ASSESSMENT: 1. Right lower lobe pneumonia suspect gram-negative organism. 2. Acute on chronic congestive heart failure EF not known. 3. Persistent atrial fibrillation chronically on Eliquis. 4. Permanent pacemaker in place. 5. Chronic urine incontinence, probably from bladder dysfunction. 6. Chronic seizure disorder. The patient is on anti epileptic medications. 7. Hyperlipidemia. 8. Essential hypertension. 9. Proximal myopathy of the lower extremity. PLAN: We will put the patient on IV Lasix. We will get a get a 2-D echocardiogram to assess LV function. PT/OT will be consulted. Other home medications to continue. Patient is put on antibiotics in form of ceftriaxone. We will also check patient's thyroid status. The patient may be getting over replaced. Care was discussed with the patient. Copy to visiting physician Dr. Marina. OLU / CYNDI: [id number] /
[2018-05-31] MEDS: LEVOTHYROXINE 100 MCG TAB PO SCH (05:44)
[2018-05-31] MEDS: DIVALPROEX 500 MG TABLET.DR PO SCH ×2 (08:20→21:17)
[2018-05-31] MEDS: CHOLECALCIFEROL 1,000 UNIT TAB PO SCH (08:20)
[2018-05-31] MEDS: METOPROLOL TARTRATE 25 MG TAB PO SCH ×2 (08:20→21:18)
[2018-05-31] MEDS: FUROSEMIDE 10 MG/ML 4 ML VIAL IV SCH ×2 (08:20→21:17)
[2018-05-31] MEDS: POTASSIUM CHLORIDE ER 10 MEQ TAB.ER.PRT PO SCH (08:20)
[2018-05-31] MEDS: ASPIRIN 81 MG PO SCH (08:21)
[2018-05-31] MEDS: carBAMazepine 300 MG CPMP.12HR PO SCH ×2 (08:21→21:17)
[2018-05-31] MEDS: OXYBUTYNIN 10 MG TAB.ER.24 PO SCH (08:21)
[2018-05-31] MEDS: GABAPENTIN 100 MG CAP PO SCH ×4 (08:21→21:18)
[2018-05-31] MEDS: CYANOCOBALAMIN 500 MCG TAB PO SCH (08:21)
[2018-05-31] MEDS: carBAMazepine 100 MG TAB.ER.12H PO SCH (08:21)
[2018-05-31] MEDS: LISINOPRIL 10 MG TAB PO SCH (08:21)
[2018-05-31] MEDS: DIVALPROEX 250 MG TABLET.DR PO SCH (08:21)
[2018-05-31] MEDS: APIXABAN 5 MG TAB PO SCH ×2 (08:21→21:17)
[2018-05-31] MEDS: ESLICARBAZEPINE ACETATE 600 MG PO SCH (08:32)
[2018-05-31] MEDS ORDERED: AZITHROMYCIN 500 MG TAB PO SCH (09:00)
[2018-05-31 12:33] LABS: T4, Free (Free Thyroxine) 1.46 ng/dL (0.78-2.19)
--- NOTE | 2018-05-31 12:39 | P.CRDCN ---
History of Present Illness Consult date: 05/31/18 History of present illness: This is a 68-year-old gentleman with history of atrial fibrillation, previous permanent pacemaker implantation, diabetes mellitus, hypertension, hepatitis who has been having increasing edema of the legs and some shortness of breath. Mainly patient came because he was so weak that he could not stand or walk. Lower extremity extremely weak. He also noticed that he was having more swelling in the legs. Because his bed is broken, patient has been sitting and sleeping in the chair. That might have resulted in dependent edema. Patient is also having poor appetite. Since admission here patient was treated with Lasix with improvement of his leg edema. His proBNP is elevated. His chest x- ray showed a right middle lobe infiltrate suggestive of pneumonia. He doesn't appear patient had any significant fever or chills. At the time of my examination patient did not appear to be in acute distress. His EKG showed atrial fibrillation. Chest x-ray showed a single-chamber pacemaker Review of Systems As per the chart Past Medical History Past Medical History: Atrial Fibrillation, Diabetes Mellitus, Hyperlipidemia, Hypertension, Seizure Disorder Additional Past Medical History / Comment(s): Chronic Afib, SSS with pacemaker, diet controlled diabetes type II, hepatitis B carrier, pt states last seizure was "long ago", hypothyroid, bilateral lower leg/ankle edema, incontnence of urine at times, hematuria, constipation. History of Any Multi-Drug Resistant Organisms: None Reported Past Surgical History: Bowel Resection, Orthopedic Surgery, Pacemaker Additional Past Surgical History / Comment(s): 2010 generator change in pacer, PCI with stent 2003, cardiac cath 2009, bowel resections x2 d/t small blockages , bilateral cataracts removed, L pinky finger reattached. Past Anesthesia/Blood Transfusion Reactions: No Reported Reaction Type of Cardiac Device: Permanent Pacemaker Device Placement Date:: 07/13/02 Smoking Status: Former smoker - Past Family History Mother Additional Family Medical History / Comment(s): Mother is . Pt states she when her "heart gave out." Father Additional Family Medical History / Comment(s): Father is . Pt cannot recall his medical hx Medications and Allergies Home Medications Medication Instructions Recorded Confirmed Type Aspirin 81 mg PO DAILY 10/10/15 05/30/18 History Cholecalciferol [Vitamin D3] 1,000 unit PO DAILY 10/10/15 05/30/18 History Cyanocobalamin [Vitamin B-12] 1,000 mcg PO DAILY 10/10/15 05/30/18 History Divalproex [Depakote] 250 mg PO DAILY 10/10/15 05/30/18 History Divalproex [Depakote] 500 mg PO BID 10/10/15 05/30/18 History Gabapentin [Neurontin] 100 mg PO QID 10/10/15 05/30/18 History Isosorbide Mononitrate [Isosorbide 30 mg PO HS 10/10/15 05/30/18 History Mononitrate ER] Stacy-3 Fatty Acids/Fish Oil [Fish 1 cap PO BID 10/10/15 05/30/18 History Oil 1,000 mg Softgel] carBAMazepine [Carbatrol] 100 mg PO DAILY 10/10/15 05/30/18 History carBAMazepine [Carbatrol] 300 mg PO BID 10/10/15 05/30/18 History Furosemide [Lasix] 20 mg PO BID 06/11/17 05/30/18 History Simvastatin [Zocor] 10 mg PO HS 06/11/17 05/30/18 History Apixaban [Eliquis] 5 mg PO BID 03/04/18 05/30/18 History Atenolol [Tenormin] 25 mg PO DAILY 03/04/18 05/30/18 History Levothyroxine Sodium [Synthroid] 100 mcg PO DAILY 03/04/18 05/30/18 History Lisinopril [Zestril] 10 mg PO DAILY 03/04/18 05/30/18 History Polyethylene Glycol 3350 [Clearlax] 17 gm PO DAILY PRN 03/04/18 05/30/18 History Potassium Chloride [K-Tab ER] 10 meq PO DAILY 03/04/18 05/30/18 History Sennosides [Senna] 17.2 mg PO HS 03/04/18 05/30/18 History Docusate [Colace] 200 mg PO HS 05/30/18 05/30/18 History Oxybutynin Chloride [Ditropan XL] 10 mg PO DAILY 05/30/18 05/30/18 History Allergies Allergy/AdvReac Type Severity Reaction Status Date / Time No Known Allergies Allergy Verified 05/30/18 08:10 Physical Exam Vitals: Vital Signs Temp Pulse Resp BP BP Pulse Ox 12/25/18 07:19 99.1 F 59 L 18 167/87 97 05/30/18 23:00 98.3 F 44 L 20 144/82 99 05/30/18 15:15 98.7 F 52 L 19 125/75 100 Intake and Output 05/30/18 05/31/18 05/31/18 22:59 06:59 14:59 Intake Total 200 100 Output Total 1949 2350 700 Balance -1749 -2250 -700 Intake: Oral 200 100 Output: Urine 1850 2350 700 Post Void Residual 99 Other: # Voids 1 Weight 70.307 kg GENERAL EXAM: Patient is alert and oriented and doesn't appear to be in any acute distress HEENT: Normocephalic. Normal reaction of pupils, equal size, normal range of extraocular motion. No erythema or exudates in the throat. NECK: No masses, no nuchal rigidity. CHEST: No chest wall deformity. LUNGS: Diminished breath sounds with a few rales at the right base HEART: S1 and S2 normal. Irregular heart sounds ABDOMEN: No hepatosplenomegaly, normal bowel sounds, no guarding or rigidity. SKIN: No rashes CENTRAL NERVOUS SYSTEM: No focal deficits. EXTREMITIES: Resolving edema Results 05/30/18 02:49 05/30/18 02:49 Current Medications Generic Name Dose Route Start Last Admin Trade Name Freq PRN Reason Stop Dose Admin Apixaban 5 mg 05/30/18 09:00 05/31/18 08:21 Eliquis PO 5 mg BID SAIDA Administration Aspirin 81 mg 05/30/18 09:00 05/31/18 08:21 Aspirin PO 81 mg DAILY SAIDA Administration Atorvastatin Calcium 10 mg 05/30/18 21:00 05/30/18 20:38 Lipitor PO 10 mg HS SAIDA Administration Carbamazepine 300 mg 05/30/18 09:00 05/31/18 08:21 Carbatrol PO 300 mg BID SAIDA Administration Carbamazepine 100 mg 05/30/18 09:00 05/31/18 08:21 Tegretol Xr PO 100 mg DAILY SAIDA Administration Cholecalciferol 1,000 unit 05/30/18 09:00 05/31/18 08:20 Vitamin D3 PO 1,000 unit DAILY SAIDA Administration Cyanocobalamin 1,000 mcg 05/30/18 09:00 05/31/18 08:21 Vitamin B-12 PO 1,000 mcg DAILY SAIDA Administration Divalproex Sodium 500 mg 05/30/18 09:00 05/31/18 08:20 Depakote PO 500 mg BID SAIDA Administration Divalproex Sodium 250 mg 05/30/18 09:00 05/31/18 08:21 Depakote PO 250 mg DAILY SAIDA Administration Furosemide 40 mg 05/30/18 21:00 05/31/18 08:20 Lasix IV 40 mg Q12HR SAIDA Administration Gabapentin 100 mg 05/30/18 09:00 05/31/18 12:09 Neurontin PO 100 mg QID SAIDA Administration Ceftriaxone Sodium 1,000 mg/ 50 mls @ 100 mls/hr 05/31/18 09:00 05/31/18 08: 20 Sodium Chloride IVPB 06/03/18 09:01 100 mls/hr Q24HR SAIDA Administration Isosorbide Mononitrate 30 mg 05/30/18 21:00 05/30/18 20:38 Imdur PO 30 mg HS SAIDA Administration Levothyroxine Sodium 100 mcg 05/30/18 09:00 05/31/18 05:44 Synthroid PO 100 mcg DAILY@0630 SAIDA Administration Lisinopril 10 mg 05/30/18 09:00 05/31/18 08:21 Zestril PO 10 mg DAILY SAIDA Administration Metoprolol Tartrate 25 mg 05/31/18 09:00 05/31/18 08:20 Lopressor PO 25 mg BID SAIDA Administration Miscellaneous Information 1 each 05/30/18 06:35 Pneumonia Protocol Utilized PO ONCE PRN Per Protocol Non-Formulary Medication 600 mg 05/30/18 09:00 05/31/18 08:32 Eslicarbazepine Acetate [Aptiom] PO Not Given DAILY SAIDA Oxybutynin Chloride 10 mg 05/30/18 11:30 05/31/18 08:21 Ditropan Xl PO 10 mg DAILY SAIDA Administration Polyethylene Glycol 17 gm 05/30/18 06:36 Miralax PO DAILY PRN Constipation Potassium Chloride 10 meq 05/30/18 09:00 05/31/18 08:20 K-Dur 10 PO 10 meq DAILY SAIDA Administration Senna 17.2 mg 05/30/18 21:00 05/30/18 20:44 Senokot PO 17.2 mg HS SAIDA Administration Intake and Output 05/30/18 05/31/18 05/31/18 22:59 06:59 14:59 Intake Total 200 100 Output Total 1949 2350 700 Balance -1749 -2250 -700 Intake: Oral 200 100 Output: Urine 1850 2350 700 Post Void Residual 99 Other: # Voids 1 Weight 70.307 kg 05/30/18 02:49 05/30/18 02:49 EKG Interpretations (text) Atrial fibrillation with controlled and corresponds Assessment and Plan (1) Edema of both legs Current Visit: Yes Status: Acute Code(s): R60.0 - LOCALIZED EDEMA SNOMED Code(s): 165811329 (2) Fall Current Visit: Yes Status: Acute Code(s): W19.XXXA - UNSPECIFIED FALL, INITIAL ENCOUNTER SNOMED Code(s): 0360787 (3) Pneumonia Current Visit: Yes Status: Acute Code(s): J18.9 - PNEUMONIA, UNSPECIFIED ORGANISM SNOMED Code(s): 591639289 (4) Diastolic CHF Current Visit: Yes Status: Acute Code(s): I50.30 - UNSPECIFIED DIASTOLIC ( CONGESTIVE) HEART FAILURE SNOMED Code(s): 748154950 (5) Chronic atrial fibrillation Current Visit: Yes Status: Acute Code(s): I48.2 - CHRONIC ATRIAL FIBRILLATION SNOMED Code(s): 662315778 (6) Presence of permanent cardiac pacemaker Current Visit: Yes Status: Acute Code(s): Z95.0 - PRESENCE OF CARDIAC PACEMAKER SNOMED Code(s): 003260667 Plan: This is 68-year-old gentleman is admitted mainly with extreme weakness in the legs and also edema of the legs. The edema of the legs could be multifactorial. Patient has hypokalemia and high has been sleeping in the chair. Part of it could be dependent edema. He has chronic atrial fibrillation and his proBNP is high . This could be an imminent of congestive heart failure, most probably due to diastolic dysfunction. We'll get an echo Cardec gram done. We'll continue with current medical therapy with JOSE inhibitor or beta marisela, nitrates and diuretics. If necessary, we'll may add small dose of Aldactone. Thank you
[2018-05-31] MEDS: ISOSORBIDE MONONITRATE ER 30 MG TAB.ER.24H PO SCH (21:17)
[2018-05-31] MEDS: CEFDINIR 300 MG CAP PO SCH (21:17)
[2018-05-31] MEDS: ATORVASTATIN 10 MG TAB PO SCH (21:17)
[2018-05-31] MEDS: SENNOSIDES 8.6 MG TAB PO SCH (21:18)
[2018-06-01] MEDS: LEVOTHYROXINE 100 MCG TAB PO SCH (05:07)
--- NOTE | 2018-06-01 05:51 | PN ---
PROGRESS NOTE DATE OF SERVICE: 05/31/2018 PRESENTING COMPLAINT: Tired, short of breath. INTERVAL HISTORY: The patient has multiple symptoms presented what is now felt to be right lower lobe pneumonia, possible CHF exacerbation, is on Eliquis for persistent atrial fibrillation. The patient did get IV Lasix overnight, feeling much better today. Pending a 2-D echocardiogram. PT, OT is on the case. Minimal cough. Did tolerate his meal. REVIEW OF SYSTEMS: Done for constitutional, cardiovascular, GI, pulmonary; relevant findings as above. CURRENT MEDICATIONS: Current medications are reviewed that include IV ceftriaxone, IV Lasix. PHYSICAL EXAMINATION: On examination, temperature 99, pulse 57, respiration 19, blood pressure 145/70, pulse ox 99% on room air. GENERAL APPEARANCE: Sitting up in a chair, more comfortable. EYES: Pupils equal. Conjunctivae pale. NECK: JVD unable to assess. Mass not palpable. RESPIRATORY: Effort normal. LUNGS: Decreased breath sounds. CARDIOVASCULAR: First and second sounds normal. Minimal edema. ABDOMEN: Soft, nontender. Liver and spleen not palpable. PSYCHIATRY: Answering questions. INVESTIGATIONS: TSH is 6.7, free T4 is 1.46. ProBNP is 2110. ASSESSMENT: 1. Right lower lobe pneumonia, suspect gram-negative organism. 2. Acute on chronic congestive heart failure, ejection fraction not known. 3. Persistent atrial fibrillation, chronically on Eliquis. 4. Permanent pacemaker in place. 5. Chronic urine incontinence, probably from bladder dysfunction. 6. Chronic seizure disorder, on antiepileptic medications. 7. Hyperlipidemia. 8. Essential hypertension. 9. Proximal myopathy of the lower extremity. PLAN: The patient is done with diuresis. Awaiting a 2-D echocardiogram. PT, OT is on the case. We will switch the patient over to oral antibiotic. The patient will be maintained on the current dose of Synthroid. Repeat labs in the morning in the morning. The patient will need probably a subacute rehab. MMODL / IJN: [id number] /
[2018-06-01] MEDS: METOPROLOL TARTRATE 25 MG TAB PO SCH ×2 (07:44→20:54)
[2018-06-01] MEDS: ASPIRIN 81 MG PO SCH (07:45)
[2018-06-01] MEDS: FUROSEMIDE 40 MG TAB PO SCH (07:45)
[2018-06-01] MEDS: LISINOPRIL 10 MG TAB PO SCH (07:45)
[2018-06-01] MEDS: OXYBUTYNIN 10 MG TAB.ER.24 PO SCH (07:45)
[2018-06-01] MEDS: APIXABAN 5 MG TAB PO SCH ×2 (07:45→20:53)
[2018-06-01] MEDS: POTASSIUM CHLORIDE ER 10 MEQ TAB.ER.PRT PO SCH (07:45)
[2018-06-01] MEDS: DIVALPROEX 500 MG TABLET.DR PO SCH ×2 (07:45→20:54)
[2018-06-01] MEDS: GABAPENTIN 100 MG CAP PO SCH ×4 (07:45→20:55)
[2018-06-01] MEDS: CHOLECALCIFEROL 1,000 UNIT TAB PO SCH (07:45)
[2018-06-01] MEDS: CEFDINIR 300 MG CAP PO SCH ×2 (07:45→20:54)
[2018-06-01] MEDS: CYANOCOBALAMIN 500 MCG TAB PO SCH (07:45)
[2018-06-01] MEDS: DIVALPROEX 250 MG TABLET.DR PO SCH (07:45)
[2018-06-01] MEDS: carBAMazepine 100 MG TAB.ER.12H PO SCH (07:45)
[2018-06-01] MEDS: carBAMazepine 300 MG CPMP.12HR PO SCH ×2 (07:45→20:54)
[2018-06-01] MEDS: ESLICARBAZEPINE ACETATE 600 MG PO SCH (07:46)
--- NOTE | 2018-06-01 10:52 | XR ---
EXAMINATION TYPE: XR Hip Bilateral and AP pelvis DATE OF EXAM: 06/01/2018 COMPARISON: Pelvis 04/07/2018 HISTORY: Bilateral hip pain TECHNIQUE: A single AP view of the pelvis is obtained. Two views of the bilateral hips are obtained o n 5 images. FINDINGS: There is no interval change. Degenerative disc changes are noted in the lower lumbar spine . Marked arthropathy is present bilaterally within the hips and femoral head remodeling, loss of joint space, subchondral sclerosis and likely geode formation, marginal spurring. Overall bone mineralizati on is reduced. No fracture or dislocation. IMPRESSION: There is no acute fracture or dislocation in the pelvis or bilateral hips. Marked osteoa rthritis bilateral hips. Osteopenia.
[2018-06-01 11:04] LABS: Anion Gap 5 mmol/L; Blood Urea Nitrogen 22 mg/dL (9-20); Calcium 8.6 mg/dL (8.4-10.2); Carbon Dioxide 30 mmol/L (22-30); Chloride 100 mmol/L (98-107); Glucose 187 mg/dL (74-99); Potassium 4.3 mmol/L (3.5-5.1); Sodium 135 mmol/L (137-145)
--- NOTE | 2018-06-01 13:11 | P.PN ---
Subjective Progress Note Date: 06/01/18 This is a 68-year-old gentleman with history of chronic atrial fibrillation was brought to the hospital with extreme weakness and of the extremities and some shortness of breath and also increasing pedal edema. Some of the edema was felt to be secondary to dependent edema and may be related to hypoalbuminemia. His proBNP is high and there is a concern that he may have congestive heart failure. He responded very well to the diuretics and his edema is down. Patient is still waiting to have echocardiogram. Patient is in bed almost lying flat without any shortness of breath. No significant JVD. Lungs appeared to be clear. Heart is irregular but rate controlled. He seemed to be stable. We'll review echocardiogram after it is done Objective - Vital Signs Vital signs: Vital Signs Temp 97.5 F L 06/01/18 07:07 Pulse 62 06/01/18 07:07 Resp 18 06/01/18 07:07 BP 178/97 06/01/18 07:07 Pulse Ox 98 06/01/18 07:07 Intake & Output 05/31/18 06/01/18 06/01/18 18:59 06:59 18:59 Intake Total 300 Output Total 3100 1400 Balance -3100 -1100 Intake: Oral 300 Output: Urine 3100 1400 - Exam GENERAL EXAM: Patient is alert and oriented and doesn't appear to be in any acute distress HEENT: Normocephalic. Normal reaction of pupils, equal size, normal range of extraocular motion. No erythema or exudates in the throat. NECK: No masses, no nuchal rigidity. CHEST: No chest wall deformity. LUNGS: Equal air entry with no crackles or wheeze. HEART: S1 and S2 normal with no audible mumurs or gallops. Regular rhythm, femorals equal on both sides.. ABDOMEN: No hepatosplenomegaly, normal bowel sounds, no guarding or rigidity. SKIN: No rashes CENTRAL NERVOUS SYSTEM: No focal deficits. EXTREMITIES: But edema seemed to be clearing - Labs CBC & Chem 7: 05/30/18 02:49 06/01/18 10:34 Labs: Abnormal Lab Results - Last 24 Hours (Table) 06/01/18 Range/Units 10:34 Sodium 135 L (137-145) mmol/L BUN 22 H (9-20) mg/dL Glucose 187 H (74-99) mg/dL Assessment and Plan (1) Edema of both legs Current Visit: Yes Status: Acute Code(s): R60.0 - LOCALIZED EDEMA SNOMED Code(s): 297854485 (2) Fall Current Visit: Yes Status: Acute Code(s): W19.XXXA - UNSPECIFIED FALL, INITIAL ENCOUNTER SNOMED Code(s): 2526789 (3) Pneumonia Current Visit: Yes Status: Acute Code(s): J18.9 - PNEUMONIA, UNSPECIFIED ORGANISM SNOMED Code(s): 838532494 (4) Diastolic CHF Current Visit: Yes Status: Acute Code(s): I50.30 - UNSPECIFIED DIASTOLIC ( CONGESTIVE) HEART FAILURE SNOMED Code(s): 652824711 (5) Chronic atrial fibrillation Current Visit: Yes Status: Acute Code(s): I48.2 - CHRONIC ATRIAL FIBRILLATION SNOMED Code(s): 744913651 (6) Presence of permanent cardiac pacemaker Current Visit: Yes Status: Acute Code(s): Z95.0 - PRESENCE OF CARDIAC PACEMAKER SNOMED Code(s): 290787307 Plan: Continue current medical therapy. Patient is also being treated for pneumonia. We'll review the echocardiogram
--- NOTE | 2018-06-01 13:33 | P.PN ---
Subjective On-call hospitalist covering for Dr. Fong starting 06/01/2018 through 2018 This is a pleasant 68 years old with past medical history of chronic atrial fibrillation status post pacemaker, diabetes mellitus, hypertension, hyperlipidemia, seizure disorder, hypothyroidism, incontinence of urine at times and constipation. Patient has public guardian. Who presents because he said that his lower extremity cannot hold his weight anymore, however patient could not specify for how long his laxative been weak. On admission also was noted has bilateral leg swelling and he was suspected to have acute diastolic CHF and right pneumonia which leading him to falling. Patient has been evaluated by cardiology team and he is already on Lasix was switched to oral dosing. Also he is on antibiotics cefdinir noted by Dr. retana. Patient also on Eliquis 5 mg. Today patient was complaining from pain across his lower abdomen. And he was still complaining of from his lower extremity weakness however it was noticed that he couldn't elevate both legs against gravity but slowly. Also patient complains sometimes from shooting pain up his leg. Patient has Watts catheter and his been complaining of from constipation for a few days. Physical therapy already is been ordered Objective - Vital Signs Vital signs: Vital Signs Temp 97.5 F L 06/01/18 07:07 Pulse 62 06/01/18 07:07 Resp 18 06/01/18 07:07 BP 178/97 06/01/18 07:07 Pulse Ox 98 06/01/18 07:07 Intake & Output 05/31/18 06/01/18 06/01/18 18:59 06:59 18:59 Intake Total 300 Output Total 3100 1400 Balance -3100 -1100 Intake: Oral 300 Output: Urine 3100 1400 - Exam GENERAL: The patient is alert and oriented x3, not in any acute distress. Well developed, well nourished. HEENT: Pupils are round and equally reacting to light. EOMI. No scleral icterus. No conjunctival pallor. Normocephalic, atraumatic. No pharyngeal erythema. No thyromegaly. CARDIOVASCULAR: S1 and S2 present. No murmurs, rubs, or gallops. PULMONARY: Chest is clear to auscultation, no wheezing or crackles. ABDOMEN: Soft, nontender, nondistended, normoactive bowel sounds. No palpable organomegaly. MUSCULOSKELETAL: No joint swelling or deformity. EXTREMITIES: No cyanosis, clubbing, or pedal edema. -NEUROLOGICAL: Gross neurological examination did not reveal any focal deficits. Stable bilateral lower extremity weakness, however patient could raise his legs against gravity. SKIN: No rashes. - Labs CBC & Chem 7: 05/30/18 02:49 06/01/18 10:34 Labs: Abnormal Lab Results - Last 24 Hours (Table) 06/01/18 Range/Units 10:34 Sodium 135 L (137-145) mmol/L BUN 22 H (9-20) mg/dL Glucose 187 H (74-99) mg/dL Assessment and Plan Assessment: bbilateral lower extremity weakness, and [employer] acute or chronic in Acute on chronic diastolic CHF, on diuretic Community-acquired Right side pneumonia History of chronic atrial flutter on permanent pacemaker History of diabetes mellitus Essential hypertension Hyperlipidemia History of seizure disorder History of hepatitis B carrier Hypothyroidism Chronic urine incontinence He has probably guardian. Plan: This is a pleasant 68 years old male who presents with pneumonia and CHF, however he has lower extremity weakness. Consult nephrology service. Cardiology evaluation is appreciated. Continue with the Eliquis and antibiotics.Labs and medication were reviewed.. Continue same treatment. Continue with symptomatic treatment. Resume home medication. Monitor lytes and vitals. DVT and GI prophylaxis. Further recommendations of the clinical course of the patient DVT prophylaxis: On Eliquis GI Prophylaxis: Pepcid PT/OT: Pending Prognosis is guarded
--- NOTE | 2018-06-01 18:35 | P.CNNES ---
History of Present Illness Consult date: 06/01/18 History of Present Illness: The patient is a 68-year-old man who presented to the hospital after a fall. The patient states that he has been sleeping in a sitting posture at home. Patient found to have bilateral leg swelling. The patient complains of leg weakness for the past 2 weeks. The patient swelling responded to diuretics. Patient complains of pain in both legs. He denies any back pain. He had a CAT scan of the brain and cervical spine which showed cerebral atrophy and spondylitic changes in the cervical spine he had x-rays of the help pelvis and hips which showed osteoarthritis Patient has a history of seizures which are well controlled with his present medications. He has not had any breakthrough seizures. He had a CT of the brain which showed atrophy. He had a CT of the cervical spine which showed spondylitic changes. He had x-rays of the hip and pelvis which showed osteoporosis Review of Systems Constitutional: Denies chills, Denies fever Eyes: denies blurred vision, denies pain Ears, nose, mouth and throat: Denies headache, Denies sore throat Cardiovascular: Denies chest pain, Denies shortness of breath Respiratory: Denies cough Gastrointestinal: Reports as per HPI Musculoskeletal: Denies myalgias Integumentary: Denies pruritus, Denies rash Neurological: Denies numbness, Denies weakness Psychiatric: Denies anxiety, Denies depression Past Medical History Past Medical History: Atrial Fibrillation, Diabetes Mellitus, Hyperlipidemia, Hypertension, Seizure Disorder Additional Past Medical History / Comment(s): Chronic Afib, SSS with pacemaker, diet controlled diabetes type II, hepatitis B carrier, pt states last seizure was "long ago", hypothyroid, bilateral lower leg/ankle edema, incontnence of urine at times, hematuria, constipation. History of Any Multi-Drug Resistant Organisms: None Reported Past Surgical History: Bowel Resection, Orthopedic Surgery, Pacemaker Additional Past Surgical History / Comment(s): 2010 generator change in pacer, PCI with stent 2003, cardiac cath 2009, bowel resections x2 d/t small blockages , bilateral cataracts removed, L pinky finger reattached. Past Anesthesia/Blood Transfusion Reactions: No Reported Reaction Type of Cardiac Device: Permanent Pacemaker Device Placement Date:: 07/13/02 Smoking Status: Former smoker - Past Family History Mother Additional Family Medical History / Comment(s): Mother is . Pt states she when her "heart gave out." Father Additional Family Medical History / Comment(s): Father is . Pt cannot recall his medical hx Medications and Allergies Home Medications Medication Instructions Recorded Confirmed Type Aspirin 81 mg PO DAILY 10/10/15 05/30/18 History Cholecalciferol [Vitamin D3] 1,000 unit PO DAILY 10/10/15 05/30/18 History Cyanocobalamin [Vitamin B-12] 1,000 mcg PO DAILY 10/10/15 05/30/18 History Divalproex [Depakote] 250 mg PO DAILY 10/10/15 05/30/18 History Divalproex [Depakote] 500 mg PO BID 10/10/15 05/30/18 History Gabapentin [Neurontin] 100 mg PO QID 10/10/15 05/30/18 History Isosorbide Mononitrate [Isosorbide 30 mg PO HS 10/10/15 05/30/18 History Mononitrate ER] Corwith-3 Fatty Acids/Fish Oil [Fish 1 cap PO BID 10/10/15 05/30/18 History Oil 1,000 mg Softgel] carBAMazepine [Carbatrol] 100 mg PO DAILY 10/10/15 05/30/18 History carBAMazepine [Carbatrol] 300 mg PO BID 10/10/15 05/30/18 History Furosemide [Lasix] 20 mg PO BID 06/11/17 05/30/18 History Simvastatin [Zocor] 10 mg PO HS 06/11/17 05/30/18 History Apixaban [Eliquis] 5 mg PO BID 03/04/18 05/30/18 History Atenolol [Tenormin] 25 mg PO DAILY 03/04/18 05/30/18 History Levothyroxine Sodium [Synthroid] 100 mcg PO DAILY 03/04/18 05/30/18 History Lisinopril [Zestril] 10 mg PO DAILY 03/04/18 05/30/18 History Polyethylene Glycol 3350 [Clearlax] 17 gm PO DAILY PRN 03/04/18 05/30/18 History Potassium Chloride [K-Tab ER] 10 meq PO DAILY 03/04/18 05/30/18 History Sennosides [Senna] 17.2 mg PO HS 03/04/18 05/30/18 History Docusate [Colace] 200 mg PO HS 05/30/18 05/30/18 History Oxybutynin Chloride [Ditropan XL] 10 mg PO DAILY 05/30/18 05/30/18 History Allergies Allergy/AdvReac Type Severity Reaction Status Date / Time No Known Allergies Allergy Verified 05/30/18 08:10 Physical Examination - Vital Signs Vital Signs: Vital Signs Temp Pulse Resp BP Pulse Ox 06/01/18 14:48 98.1 F 59 L 18 143/90 98 06/01/18 07:07 97.5 F L 62 18 178/97 98 05/31/18 23:00 99 F 61 20 149/83 99 Intake and Output 06/01/18 06/01/18 06/01/18 06:59 14:59 22:59 Intake Total 100 240 Output Total 1400 1275 Balance -1300 -1035 Intake: Oral 100 240 Output: Urine 1400 1275 Other: # Voids 3 # Bowel Movements 0 - Constitutional General appearance: cooperative - EENT EENT: PERRL - Respiratory Respiratory: lungs clear - Cardiovascular Cardiovascular: regular rate - Neurologic Neurologic examination: Mental status: He was awake alert and oriented. There is no a aphasia or dysarthria. Cranial nerve examination: Cranial nerves II through XII grossly intact next Motor examination: Upper extremity strength 5 out of 5 lower extremity 4 out of 5 he was able to lift both legs up against gravity. Next Sensory examination: Intact to light touch Deep tendon reflexes: Trace and symmetric Gait could not be tested Results - Laboratory Findings CBC and BMP: 05/30/18 02:49 06/01/18 10:34 Abnormal Lab Findings: Abnormal Labs 05/30/18 05/30/18 05/30/18 02:49 02:49 02:49 RBC 3.15 L Hgb 10.3 L Hct 31.4 L Lymphocytes # 0.9 L Sodium BUN 23 H Glucose 109 H POC Glucose (mg/dL) Total Protein 5.9 L Albumin 2.8 L TSH Urine Protein Trace H Urine Glucose (UA) 1+ H 05/30/18 05/31/18 06/01/18 17:20 10:03 10:34 RBC Hgb Hct Lymphocytes # Sodium 135 L BUN 22 H Glucose 187 H POC Glucose (mg/dL) 176 H Total Protein Albumin TSH 6.720 H Urine Protein Urine Glucose (UA) Assessment and Plan (1) Fall Current Visit: Yes Status: Acute SNOMED Code(s): 0851328 (2) Leg pain, bilateral Current Visit: Yes Status: Acute SNOMED Code(s): 37869114 (3) Bilateral leg weakness Current Visit: Yes Status: Acute SNOMED Code(s): 4474480 (4) History of seizures Current Visit: Yes Status: Acute SNOMED Code(s): 633109601 Plan: The patient is a 68-year-old man with history of seizure disorder. His seizures have been well controlled. Patient complains of difficulty walking. He has had some swelling in both legs which have responded to diuretics. Recommend physical therapy and rehab. We'll check a lumbar spine CAT scan
--- NOTE | 2018-06-01 19:14 | CT ---
EXAMINATION TYPE: CT lumbar spine wo con DATE OF EXAM: 06/01/2018 6:58 PM COMPARISON: None HISTORY: leg weakness CT DLP: 573.9 mGycm Automated exposure control for dose reduction was used. Unenhanced CT of the lumbar spine was performed. Bone and soft tissue window settings are submitted as well as coronal and sagittal reconstructions. The lumbar vertebra have normal alignment. There is hypertrophic degenerative spurring anteriorly thr oughout the lumbar spine. I see no compression fracture. There is narrowing of disc spaces from L1 to L4. There is hypertrophic multilevel facet arthropathy. There is no lumbar paraspinal mass. I see no significant narrowing of the spinal canal. The sacroiliac joints appear intact. There is no focal ish ne destruction. Abdominal aorta is atheromatous. There is a 3.3 cm ring calcification in the retroper itoneum on the left side adjacent to the abdominal aorta. This could be renal artery aneurysm. IMPRESSION: Spondylotic changes in the lumbar spine. No fracture. No evidence of any significant spinal stenosis. There is some minimal lateral recess stenosis at L3-4 with facet arthropathy. 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
[2018-06-01] MEDS: FAMOTIDINE 20 MG/2 ML VIAL IV SCH (20:54)
[2018-06-01] MEDS: ATORVASTATIN 10 MG TAB PO SCH (20:54)
[2018-06-01] MEDS: ISOSORBIDE MONONITRATE ER 30 MG TAB.ER.24H PO SCH (20:54)
[2018-06-01] MEDS: SENNOSIDES 8.6 MG TAB PO SCH (20:54)
[2018-06-02] MEDS: LEVOTHYROXINE 100 MCG TAB PO SCH (05:12)
[2018-06-02 06:38] VITALS: RESP 18
--- NOTE | 2018-06-02 09:03 | ECHOF ---
Referral Reason:assess Lv fn MEASUREMENTS -------- HEIGHT: 162.6 cm WEIGHT: 70.3 kg BP: 149/83 IVSd: 1.0 cm (0.6 - 1.1) LVIDd: 5.1 cm (3.9 - 5.3) LVPWd: 1.1 cm (0.6 - 1.1) IVSs: 1.9 cm LVIDs: 4.2 cm LVPWs: 1.3 cm LA Diam: 4.8 cm (2.7 - 3.8) LAESV Index (A-L): 54.28 ml/m Ao Diam: 3.6 cm (2.0 - 3.7) LA Diam: 5.1 cm (2.7 - 3.8) MV EXCURSION: 28.894 mm (> 18.000) MV EF SLOPE: 117 mm/s (70 - 150) EPSS: 0.5 cm MV E Sanchez: 0.78 m/s MV DecT: 177 ms MV A Sanchez: 0.22 m/s MV E/A Ratio: 3.59 RAP: 5.00 mmHg RVSP: 30.01 mmHg FINDINGS -------- Paced rhythm. This was a technically adequate study. The left ventricular size is normal. Left ventricular wall thickness is normal. Overall left vent ricular systolic function is low-normal with, an EF between 50 - 55 %. The right ventricle is normal in size. The left atrium is markedly dilated. LA is severely dilated >40 ml/m2 The right atrial size is normal. There is mild aortic valve sclerosis. There is no evidence of aortic regurgitation. The mitral valve leaflets are mildly thickened. Mild mitral annular calcification present. Modera te mitral regurgitation is present. Mild tricuspid regurgitation present. There is no evidence of pulmonary hypertension. The right v entricular systolic pressure, as measured by Doppler, is 30.01mmHg. There is no pulmonic regurgitation present. The aortic root size is normal. There is no pericardial effusion. CONCLUSIONS -------- 1. The left ventricular size is normal. 2. Left ventricular wall thickness is normal. 3. Overall left ventricular systolic function is low-normal with, an EF between 50 - 55 %. 4. The right ventricle is normal in size. 5. The left atrium is markedly dilated. 6. LA is severely dilated >40 ml/m2 7. The right atrial size is normal. 8. There is mild aortic valve sclerosis. 9. The mitral valve leaflets are mildly thickened. 10. Mild mitral annular calcification present. 11. Moderate mitral regurgitation is present. 12. Mild tricuspid regurgitation present. 13. There is no evidence of pulmonary hypertension. 14. The right ventricular systolic pressure, as measured by Doppler, is 30.01mmHg. 15. There is no pulmonic regurgitation present. 16. The aortic root size is normal. 17. There is no pericardial effusion. [employer] SUPERVISOR: Citlali Porras RDCS
[2018-06-02] MEDS: METOPROLOL TARTRATE 25 MG TAB PO SCH (09:12)
[2018-06-02] MEDS: LISINOPRIL 10 MG TAB PO SCH (09:12)
[2018-06-02] MEDS: GABAPENTIN 100 MG CAP PO SCH ×2 (09:12→12:52)
[2018-06-02] MEDS: CYANOCOBALAMIN 500 MCG TAB PO SCH (09:12)
[2018-06-02] MEDS: FAMOTIDINE 20 MG/2 ML VIAL IV SCH (09:12)
[2018-06-02] MEDS: APIXABAN 5 MG TAB PO SCH (09:13)
[2018-06-02] MEDS: POTASSIUM CHLORIDE ER 10 MEQ TAB.ER.PRT PO SCH (09:13)
[2018-06-02] MEDS: CHOLECALCIFEROL 1,000 UNIT TAB PO SCH (09:13)
[2018-06-02] MEDS: FUROSEMIDE 40 MG TAB PO SCH (09:13)
[2018-06-02] MEDS: ASPIRIN 81 MG PO SCH (09:13)
[2018-06-02] MEDS: DIVALPROEX 500 MG TABLET.DR PO SCH (09:13)
[2018-06-02] MEDS: carBAMazepine 300 MG CPMP.12HR PO SCH (09:16)
[2018-06-02] MEDS: carBAMazepine 100 MG TAB.ER.12H PO SCH (09:16)
[2018-06-02] MEDS: OXYBUTYNIN 10 MG TAB.ER.24 PO SCH (09:16)
[2018-06-02] MEDS: CEFDINIR 300 MG CAP PO SCH (09:17)
[2018-06-02] MEDS: DIVALPROEX 250 MG TABLET.DR PO SCH (09:17)
[2018-06-02] MEDS: ESLICARBAZEPINE ACETATE 600 MG PO SCH (09:18)
[2018-06-02 11:54] LABS: Anion Gap 5 mmol/L; Blood Urea Nitrogen 21 mg/dL (9-20); Calcium 8.6 mg/dL (8.4-10.2); Carbon Dioxide 32 mmol/L (22-30); Chloride 99 mmol/L (98-107); Glucose 144 mg/dL (74-99); Potassium 4.7 mmol/L (3.5-5.1); Sodium 136 mmol/L (137-145)
[2018-06-02 15:13] VITALS: BP 105/67; PULSE 54; TEMP 98.4
[2018-06-02] MEDS ORDERED: FAMOTIDINE 20 MG TAB PO SCH (21:00)
== END 2018-06-02 17:28 | DRG 177 ==
LOC: EC 02:22 → EEVIPCON 02:22 → UNDOADMOB 03:51 → 4SSUR 03:51 → 4MS4W 06:35
PROVIDERS: ADMIT Hospitalist; ATTEND Hospitalist
DX: J15.6 Pneumonia due to other Gram-negative bacteria (principal); I50.33 Acute on chronic diastolic (congestive) heart failure; I48.1 Persistent atrial fibrillation; B18.1 Chronic viral hepatitis B without delta-agent; I11.0 Hypertensive heart disease with heart failure; G72.9 Myopathy, unspecified; E11.9 Type 2 diabetes mellitus without complications; E78.5 Hyperlipidemia, unspecified; E03.9 Hypothyroidism, unspecified; B18.2 Chronic viral hepatitis C; K59.00 Constipation, unspecified; R32 Unspecified urinary incontinence; M47.812 Spondylosis without myelopathy or radiculopathy, cervical region; M81.0 Age-related osteoporosis without current pathological fracture; M19.042 Primary osteoarthritis, left hand; M19.041 Primary osteoarthritis, right hand; G40.909 Epilepsy, unspecified, not intractable, without status epilepticus; Z79.82 Long term (current) use of aspirin; Z79.01 Long term (current) use of anticoagulants; Z79.890 Hormone replacement therapy; Z79.899 Other long term (current) drug therapy; Z90.49 Acquired absence of other specified parts of digestive tract; Z95.0 Presence of cardiac pacemaker; Z87.891 Personal history of nicotine dependence; Z86.59 Personal history of other mental and behavioral disorders; Z95.5 Presence of coronary angioplasty implant and graft; Z98.42 Cataract extraction status, left eye; Z98.41 Cataract extraction status, right eye; W18.30XA Fall on same level, unspecified, initial encounter
CPT/HCPCS: 36415; 70450; 71046; 72125; 72131; 73521; 80048; 80053; 81003; 82607; 83880; 84439; 84443; 85025; 85610; 85730; 93306; 96365; 99285

== ENCOUNTER 2018-07-31 08:09 | Emergency (ER) | payer MEDICARE ==
[2018-07-31 08:25] VITALS: RESP 18
[2018-07-31] MEDS ORDERED: SODIUM CHLORIDE 0.9% 1,000 ML IV STA (08:35)
--- NOTE | 2018-07-31 08:39 | ED ---
General Adult HPI - General Chief complaint: Weakness Stated complaint: Failure to thrive Time Seen by Provider: 07/31/18 08:10 Source: patient, EMS, RN notes reviewed Mode of arrival: EMS Limitations: no limitations - History of Present Illness Initial comments: This a 68-year-old male who presents emergency Department sent in because he is becoming weaker over the last few days and he is not eating or drinking as much as she normally does. Patient has no new complaints patient denies any new pain. Patient denies any difficulty breathing shortness of breath. Staff at the facility that he lives that thought he might have a urinary tract infection. Patient denies any burning when he urinates. Patient denies any vomiting or diarrhea. There is nobody else with the patient to give any further history. - Related Data Home Medications Medication Instructions Recorded Confirmed Aspirin 81 mg PO DAILY 10/10/15 07/31/18 Cholecalciferol [Vitamin D3] 1,000 unit PO DAILY 10/10/15 07/31/18 Cyanocobalamin [Vitamin B-12] 1,000 mcg PO DAILY 10/10/15 07/31/18 Divalproex [Depakote] 250 mg PO DAILY 10/10/15 07/31/18 Divalproex [Depakote] 500 mg PO BID 10/10/15 07/31/18 Gabapentin [Neurontin] 100 mg PO QID 10/10/15 07/31/18 Isosorbide Mononitrate [Isosorbide 30 mg PO HS 10/10/15 07/31/18 Mononitrate ER] Jackson-3 Fatty Acids/Fish Oil [Fish 1 cap PO BID 10/10/15 07/31/18 Oil 1,000 mg Softgel] carBAMazepine [Carbatrol] 100 mg PO DAILY 10/10/15 07/31/18 carBAMazepine [Carbatrol] 300 mg PO BID 10/10/15 07/31/18 Simvastatin [Zocor] 10 mg PO HS 06/11/17 07/31/18 Apixaban [Eliquis] 5 mg PO BID 03/04/18 07/31/18 Lisinopril [Zestril] 10 mg PO DAILY 03/04/18 07/31/18 Polyethylene Glycol 3350 [Clearlax] 17 gm PO DAILY PRN 03/04/18 07/31/18 Potassium Chloride [K-Tab ER] 10 meq PO DAILY 03/04/18 07/31/18 Sennosides [Senna] 17.2 mg PO HS 03/04/18 07/31/18 Docusate [Colace] 200 mg PO HS 05/30/18 07/31/18 Oxybutynin Chloride [Ditropan XL] 10 mg PO DAILY 05/30/18 07/31/18 FLUoxetine HCL [PROzac] 20 mg PO DAILY 07/31/18 07/31/18 Previous Rx's Medication Instructions Recorded Famotidine [Pepcid] 20 mg PO Q12HR tab 06/02/18 Furosemide [Lasix] 40 mg PO DAILY tab 06/02/18 Metoprolol Tartrate [Lopressor] 25 mg PO BID tab 06/02/18 Allergies Allergy/AdvReac Type Severity Reaction Status Date / Time No Known Allergies Allergy Verified 07/31/18 08:25 Review of Systems ROS Statement: Those systems with pertinent positive or pertinent negative responses have been documented in the HPI. ROS Other: All systems not noted in ROS Statement are negative. Past Medical History Past Medical History: Atrial Fibrillation, Diabetes Mellitus, Hyperlipidemia, Hypertension, Seizure Disorder Additional Past Medical History / Comment(s): Chronic Afib, SSS with pacemaker, diet controlled diabetes type II, hepatitis B carrier, pt states last seizure was "long ago", hypothyroid, bilateral lower leg/ankle edema, incontnence of urine at times, hematuria, constipation. History of Any Multi-Drug Resistant Organisms: None Reported Past Surgical History: Bowel Resection, Orthopedic Surgery, Pacemaker Additional Past Surgical History / Comment(s): 2010 generator change in pacer, PCI with stent 2003, cardiac cath 2009, bowel resections x2 d/t small blockages , bilateral cataracts removed, L pinky finger reattached. Past Anesthesia/Blood Transfusion Reactions: No Reported Reaction Type of Cardiac Device: Permanent Pacemaker Device Placement Date:: 07/13/02 Past Psychological History: Anxiety, Bipolar, Depression Smoking Status: Former smoker Past Alcohol Use History: None Reported Past Drug Use History: None Reported - Past Family History Mother Additional Family Medical History / Comment(s): Mother is . Pt states she when her "heart gave out." Father Additional Family Medical History / Comment(s): Father is . Pt cannot recall his medical hx General Exam - General Exam Comments Initial Comments: GENERAL: Patient is well-developed and well-nourished. Patient is nontoxic and well- hydrated and is in no acute distress. ENT: Neck is soft and supple. No significant lymphadenopathy is noted. Oropharynx is clear. Moist mucous membranes. Neck has full range of motion without eliciting any pain. EYES: The sclera were anicteric and conjunctiva were pink and moist. Extraocular movements were intact and pupils were equal round and reactive to light. Eyelids were unremarkable. PULMONARY: Unlabored respirations. Good breath sounds bilaterally. No audible rales rhonchi or wheezing was noted. CARDIOVASCULAR: There is a regular rate and rhythm without any murmurs gallops or rubs. ABDOMEN: Soft and nontender with normal bowel sounds. No palpable organomegaly was noted. There is no palpable pulsatile mass. SKIN: Skin is clear with no lesions or rashes and otherwise unremarkable. NEUROLOGIC: Patient is alert and oriented 2 Cranial nerves II through XII are grossly intact. Motor and sensory are also intact. Normal speech, volume and content. Symmetrical smile. MUSCULOSKELETAL: Patient has almost full range of motion of both legs but is very slow to move them. It is difficult to completely straighten his legs out but it is bilaterally. LYMPHATICS: No significant lymphadenopathy is noted PSYCHIATRIC: Normal psychiatric evaluation. Limitations: no limitations Course Vital Signs 07/31/18 08:21 Temperature 98.7 F Pulse Rate 50 L Respiratory 18 Rate Blood Pressure 172/99 O2 Sat by Pulse 100 Oximetry Medical Decision Making - Medical Decision Making EKG shows a paced rhythm at 50 bpm QRS 182 QT interval 480 QTC is 437. Patient' s EKG shows no ST segment elevation or depression or T wave abnormalities are noted. Patient is dehydrated psychiatric the patient later and half of fluid in the emergency department. I will begin to reevaluate the patient he stated he had no complaints. Multiple attempts were made to try to speak with someone at his home but no one responded. - Lab Data Result diagrams: 07/31/18 08:59 07/31/18 08:59 Lab Results 07/31/18 07/31/18 07/31/18 Range/Units 08:30 08:59 08:59 WBC 3.4 L (3.8-10.6) k/uL RBC 3.79 L (4.30-5.90) m/uL Hgb 13.4 (13.0-17.5) gm/dL Hct 39.0 (39.0-53.0) % MCV 102.7 H (80.0-100.0) fL MCH 35.4 H (25.0-35.0) pg MCHC 34.4 (31.0-37.0) g/dL RDW 13.2 (11.5-15.5) % Plt Count 156 (150-450) k/uL Neutrophils % 57 % Lymphocytes % 28 % Monocytes % 9 % Eosinophils % 3 % Basophils % 1 % Neutrophils # 1.9 (1.3-7.7) k/uL Lymphocytes # 0.9 L (1.0-4.8) k/uL Monocytes # 0.3 (0-1.0) k/uL Eosinophils # 0.1 (0-0.7) k/uL Basophils # 0.0 (0-0.2) k/uL Macrocytosis Slight PT (9.0-12.0) sec INR (<1.2) APTT (22.0-30.0) sec Sodium 138 (137-145) mmol/L Potassium 5.1 (3.5-5.1) mmol/L Chloride 102 (98-107) mmol/L Carbon Dioxide 29 (22-30) mmol/L Anion Gap 7 mmol/L BUN 23 H (9-20) mg/dL Creatinine 0.64 L (0.66-1.25) mg/dL Est GFR (CKD-EPI)AfAm >90 (>60 ml/min/1.73 sqM) Est GFR (CKD-EPI)NonAf >90 (>60 ml/min/1.73 sqM) Glucose 170 H (74-99) mg/dL Plasma Lactic Acid Williams (0.7-2.0) mmol/L Calcium 9.3 (8.4-10.2) mg/dL Magnesium 1.5 L (1.6-2.3) mg/dL Total Bilirubin 0.7 (0.2-1.3) mg/dL AST 26 (17-59) U/L ALT 19 L (21-72) U/L Alkaline Phosphatase 75 (38-126) U/L Troponin I (0.000-0.034) ng/mL Total Protein 6.9 (6.3-8.2) g/dL Albumin 3.7 (3.5-5.0) g/dL Urine Color Yellow Urine Appearance Clear (Clear) Urine pH 5.0 (5.0-8.0) Ur Specific [place] 1.014 (1.001-1.035) Urine Protein Negative (Negative) Urine Glucose (UA) Negative (Negative) Urine Ketones Negative (Negative) Urine Blood Negative (Negative) Urine Nitrite Negative (Negative) Urine Bilirubin Negative (Negative) Urine Urobilinogen <2.0 (<2.0) mg/dL Ur Leukocyte Esterase Negative (Negative) 07/31/18 07/31/18 07/31/18 Range/Units 08:59 08:59 08:59 WBC (3.8-10.6) k/uL RBC (4.30-5.90) m/uL Hgb (13.0-17.5) gm/dL Hct (39.0-53.0) % MCV (80.0-100.0) fL MCH (25.0-35.0) pg MCHC (31.0-37.0) g/dL RDW (11.5-15.5) % Plt Count (150-450) k/uL Neutrophils % % Lymphocytes % % Monocytes % % Eosinophils % % Basophils % % Neutrophils # (1.3-7.7) k/uL Lymphocytes # (1.0-4.8) k/uL Monocytes # (0-1.0) k/uL Eosinophils # (0-0.7) k/uL Basophils # (0-0.2) k/uL Macrocytosis PT 11.9 (9.0-12.0) sec INR 1.1 (<1.2) APTT 27.8 (22.0-30.0) sec Sodium (137-145) mmol/L Potassium (3.5-5.1) mmol/L Chloride (98-107) mmol/L Carbon Dioxide (22-30) mmol/L Anion Gap mmol/L BUN (9-20) mg/dL Creatinine (0.66-1.25) mg/dL Est GFR (CKD-EPI)AfAm (>60 ml/min/1.73 sqM) Est GFR (CKD-EPI)NonAf (>60 ml/min/1.73 sqM) Glucose (74-99) mg/dL Plasma Lactic Acid Williams 2.4 H* (0.7-2.0) mmol/L Calcium (8.4-10.2) mg/dL Magnesium (1.6-2.3) mg/dL Total Bilirubin (0.2-1.3) mg/dL AST (17-59) U/L ALT (21-72) U/L Alkaline Phosphatase (38-126) U/L Troponin I <0.012 (0.000-0.034) ng/mL Total Protein (6.3-8.2) g/dL Albumin (3.5-5.0) g/dL Urine Color Urine Appearance (Clear) Urine pH (5.0-8.0) Ur Specific [place] (1.001-1.035) Urine Protein (Negative) Urine Glucose (UA) (Negative) Urine Ketones (Negative) Urine Blood (Negative) Urine Nitrite (Negative) Urine Bilirubin (Negative) Urine Urobilinogen (<2.0) mg/dL Ur Leukocyte Esterase (Negative) Disposition Clinical Impression: Appetite lost, Weakness, Dehydration Disposition: HOME SELF-CARE Condition: Good Instructions (If sedation given, give patient instructions): Weakness (ED) Is patient prescribed a controlled substance at d/c from ED?: No Referrals: None,Stated [Primary Care Provider] - 1-2 days Time of Disposition: 11:50
[2018-07-31 09:12] LABS: Basophils % (A) 1 %; Eosinophils # (A) 0.1 k/uL (0-0.7); Eosinophils % (A) 3 %; HGB 13.4 gm/dL (13.0-17.5); Lymphocytes # (A) 0.9 k/uL (1.0-4.8); Lymphocytes % (A) 28 %; MCH 35.4 pg (25.0-35.0); MCHC 34.4 g/dL (31.0-37.0); MCV 102.7 fL (80.0-100.0); Macrocytosis Slight; Mean Platelet Volume 7.8; Monocytes # (A) 0.3 k/uL (0-1.0); Monocytes % (A) 9 %; Neutrophils # (A) 1.9 k/uL (1.3-7.7); Neutrophils % (A) 57 %; Platelet Count 156 k/uL (150-450); RBC 3.79 m/uL (4.30-5.90); RDW 13.2 % (11.5-15.5); WBC 3.4 k/uL (3.8-10.6)
[2018-07-31 09:12] LABS: Appearance,Urine Clear (Clear); Bilirubin,Urine Negative (Negative); Blood,Urine Negative (Negative); Color,Urine Yellow; Glucose,Urine (UA) Negative (Negative); Ketones,Urine Negative (Negative); Leukocyte Esterase,Urine Negative (Negative); Nitrite,Urine Negative (Negative); Protein,Urine Negative (Negative); Specific Gravity,Urine 1.014 (1.001-1.035); Urobilinogen,Urine <2.0 mg/dL (<2.0)
[2018-07-31 09:27] LABS: Albumin 3.7 g/dL (3.5-5.0); Anion Gap 7 mmol/L; Blood Urea Nitrogen 23 mg/dL (9-20); Calcium 9.3 mg/dL (8.4-10.2); Carbon Dioxide 29 mmol/L (22-30); Chloride 102 mmol/L (98-107); Glucose 170 mg/dL (74-99); Sodium 138 mmol/L (137-145); Total Bilirubin 0.7 mg/dL (0.2-1.3); Total Protein 6.9 g/dL (6.3-8.2)
[2018-07-31 09:29] LABS: INR 1.1 (<1.2); Partial Thromboplastin Time 27.8 sec (22.0-30.0); Prothrombin Time 11.9 sec (9.0-12.0)
[2018-07-31 09:36] LABS: ALT 19 U/L (21-72); AST 26 U/L (17-59); Alkaline Phosphatase 75 U/L (38-126); Magnesium 1.5 mg/dL (1.6-2.3); Potassium 5.1 mmol/L (3.5-5.1)
--- NOTE | 2018-07-31 10:06 | XR ---
EXAMINATION TYPE: XR chest 2V DATE OF EXAM: 07/31/2018 COMPARISON: 05/30/2018 INDICATION: Weakness in arms and legs generalized pain TECHNIQUE: Frontal and lateral views of the chest are obtained. FINDINGS: The heart size is normal. The pulmonary vasculature is normal. The lungs are clear. Pacemaker overlies left chest. IMPRESSION: 1. No acute pulmonary process.
[2018-07-31 12:56] VITALS: BP 174/82; PULSE 68; TEMP 97.8
== END 2018-07-31 12:56 | disposition home or self-care (01) ==
LOC: EC 08:09
DX: R53.1 Weakness (principal); E86.0 Dehydration; R63.0 Anorexia; I48.2 Chronic atrial fibrillation; E78.5 Hyperlipidemia, unspecified; I10 Essential (primary) hypertension; G40.909 Epilepsy, unspecified, not intractable, without status epilepticus; F41.9 Anxiety disorder, unspecified; F32.9 Major depressive disorder, single episode, unspecified; Z95.818 Presence of other cardiac implants and grafts; Z95.0 Presence of cardiac pacemaker; Z87.891 Personal history of nicotine dependence; Z79.82 Long term (current) use of aspirin; Z79.01 Long term (current) use of anticoagulants; Z79.899 Other long term (current) drug therapy
CPT/HCPCS: 36415; 71046; 80053; 81003; 83605; 83735; 84484; 85025; 85610; 85730; 93005; 96360; 99285

== ENCOUNTER 2018-08-08 10:22 | Emergency (ER) | payer MEDICARE ==
[2018-08-08 10:33] VITALS: TEMP 98.7
--- NOTE | 2018-08-08 11:09 | ED ---
General Adult HPI - General Chief complaint: Recheck/Abnormal Lab/Rx Stated complaint: Took wrong medication Time Seen by Provider: 08/08/18 10:39 Source: EMS Mode of arrival: EMS Limitations: no limitations - History of Present Illness Initial comments: Dictation was produced using [employer] dictation software. please excuse any grammatical, word or spelling errors. Chief Complaint: 68-year-old male with past medical history of dementia, H fibrillation, diabetes, hypertension, seizure disorder presents via EMS for consumption of another individual's medications. History of Present Illness: 68-year-old male. He has memory issues. He was brought here by EMS. Allegedly he took his neighbor's medications. According to EMS patient took baclofen, gabapentin and doxycycline. Patient does not have any known ALLERGIES these medications. Patient has history of dementia and does not know why he is here in emergency department today. He has no complaints at this time. He does have a history of dementia and is an unreliable historian at this time. The ROS documented in this emergency department record has been reviewed and confirmed by me. Those systems with pertinent positive or negative responses have been documented in the HPI. All other systems are other negative and/or noncontributory. PHYSICAL EXAM: General Impression: Alert and oriented x3, not in acute distress HEENT: Normocephalic atraumatic, extra-ocular movements intact, pupils equal and reactive to light bilaterally, mucous membranes moist, poor dentition Cardiovascular: Heart regular rate and rhythm, S1&S2 audible, no murmurs, rubs or gallops Chest: Lungs clear to auscultation bilaterally, no rhonchi, no wheeze, no rales Abdomen: Bowel sounds present, abdomen soft, non-tender, non-distended, no organomegaly Musculoskeletal: Pulses present and equal in all extremities, no peripheral edema Motor: no focal deficits noted Neurological: CN II-XII grossly intact, no focal motor or sensory deficits noted Skin: Intact with no visualized rashes Psych: Normal affect and mood, tangential speech ED course: 68-year-old male presents via EMS for accidental ingestion of his neighbor's medications. Patient has history of dementia. Patient has no complaints at this time. Vital signs upon arrival are within acceptable limits. Patient physical examination is benign. No suspicion for any specific toxidrome. Patient case was discussed with Mary who is patient's guardian at the home among other individuals at that living facility. She reports that he took his neighbor's medications which included gabapentin, baclofen doxycycline. Patient has been exhibiting impulsive behavior for the past several weeks. Guardianship is currently seeking transfer to living facility given that patient is unable to care for himself at that facility.Laboratory evaluation obtained. CBC and metabolic panel is within acceptable limits. Salicylate and Tylenol is negative. Patient observed in emergency department for several hours with no change in medical condition. Patient not showing any signs of medication toxicity. Patient clear for discharge. EKG interpretation: Ventricular rate 51, paced rhythm, QS 172, QTc 458. No AK prolongation, no QTC prolongation, no ST or T-wave changes noted. Overall, this EKG is unremarkable - Related Data Home Medications Medication Instructions Recorded Confirmed Cholecalciferol [Vitamin D3] 1,000 unit PO DAILY 10/10/15 08/08/18 Divalproex [Depakote] 250 mg PO DAILY 10/10/15 08/08/18 Isosorbide Mononitrate [Isosorbide 30 mg PO HS 10/10/15 08/08/18 Mononitrate ER] carBAMazepine [Carbatrol] 100 mg PO DAILY 10/10/15 08/08/18 Simvastatin [Zocor] 10 mg PO HS 06/11/17 08/08/18 Apixaban [Eliquis] 5 mg PO BID 03/04/18 08/08/18 Lisinopril [Zestril] 10 mg PO DAILY 03/04/18 08/08/18 Potassium Chloride [K-Tab ER] 10 meq PO DAILY 03/04/18 08/08/18 Sennosides [Senna] 17.2 mg PO HS 03/04/18 08/08/18 Docusate [Colace] 200 mg PO HS 05/30/18 08/08/18 Oxybutynin Chloride [Ditropan XL] 10 mg PO DAILY 05/30/18 08/08/18 FLUoxetine HCL [PROzac] 20 mg PO DAILY 07/31/18 08/08/18 Clotrimazole/Betameth Lotion 1 applic TOPICAL BID PRN 08/08/18 08/08/18 [Lotrisone] Levothyroxine Sodium [Synthroid] 125 mcg PO DAILY 08/08/18 08/08/18 Previous Rx's Medication Instructions Recorded Furosemide [Lasix] 40 mg PO DAILY tab 06/02/18 Metoprolol Tartrate [Lopressor] 25 mg PO BID tab 06/02/18 Allergies Allergy/AdvReac Type Severity Reaction Status Date / Time No Known Allergies Allergy Verified 08/08/18 10:59 Review of Systems ROS Statement: Those systems with pertinent positive or pertinent negative responses have been documented in the HPI. ROS Other: All systems not noted in ROS Statement are negative. Past Medical History Past Medical History: Atrial Fibrillation, Diabetes Mellitus, Hyperlipidemia, Hypertension, Seizure Disorder Additional Past Medical History / Comment(s): Chronic Afib, SSS with pacemaker, diet controlled diabetes type II, hepatitis B carrier, pt states last seizure was "long ago", hypothyroid, bilateral lower leg/ankle edema, incontnence of urine at times, hematuria, constipation. History of Any Multi-Drug Resistant Organisms: None Reported Past Surgical History: Bowel Resection, Orthopedic Surgery, Pacemaker Additional Past Surgical History / Comment(s): 2010 generator change in pacer, PCI with stent 2003, cardiac cath 2009, bowel resections x2 d/t small blockages , bilateral cataracts removed, L pinky finger reattached. Past Anesthesia/Blood Transfusion Reactions: No Reported Reaction Type of Cardiac Device: Permanent Pacemaker Device Placement Date:: 07/13/02 Past Psychological History: Anxiety, Bipolar, Depression Smoking Status: Former smoker Past Alcohol Use History: None Reported Past Drug Use History: None Reported - Past Family History Mother Additional Family Medical History / Comment(s): Mother is . Pt states she when her "heart gave out." Father Additional Family Medical History / Comment(s): Father is . Pt cannot recall his medical hx General Exam Limitations: no limitations Course Vital Signs 08/08/18 08/08/18 10:30 11:49 Temperature 98.7 F Pulse Rate 52 L 51 L Respiratory 16 16 Rate Blood Pressure 139/78 126/71 O2 Sat by Pulse 98 98 Oximetry Medical Decision Making - Lab Data Result diagrams: 08/08/18 11:07 08/08/18 11:07 Lab Results 08/08/18 08/08/18 Range/Units 11:07 11:07 WBC 4.8 (3.8-10.6) k/uL RBC 3.47 L (4.30-5.90) m/uL Hgb 12.1 L (13.0-17.5) gm/dL Hct 35.1 L (39.0-53.0) % MCV 101.2 H (80.0-100.0) fL MCH 34.9 (25.0-35.0) pg MCHC 34.5 (31.0-37.0) g/dL RDW 13.3 (11.5-15.5) % Plt Count 192 (150-450) k/uL Neutrophils % 73 % Lymphocytes % 16 % Monocytes % 8 % Eosinophils % 1 % Basophils % 0 % Neutrophils # 3.5 (1.3-7.7) k/uL Lymphocytes # 0.8 L (1.0-4.8) k/uL Monocytes # 0.4 (0-1.0) k/uL Eosinophils # 0.1 (0-0.7) k/uL Basophils # 0.0 (0-0.2) k/uL Sodium 138 (137-145) mmol/L Potassium 3.9 (3.5-5.1) mmol/L Chloride 103 (98-107) mmol/L Carbon Dioxide 29 (22-30) mmol/L Anion Gap 6 mmol/L BUN 26 H (9-20) mg/dL Creatinine 0.72 (0.66-1.25) mg/dL Est GFR (CKD-EPI)AfAm >90 (>60 ml/min/1.73 sqM) Est GFR (CKD-EPI)NonAf >90 (>60 ml/min/1.73 sqM) Glucose 132 H (74-99) mg/dL Calcium 9.2 (8.4-10.2) mg/dL Total Bilirubin 0.6 (0.2-1.3) mg/dL AST 28 (17-59) U/L ALT 30 (21-72) U/L Alkaline Phosphatase 81 (38-126) U/L Total Protein 6.9 (6.3-8.2) g/dL Albumin 3.9 (3.5-5.0) g/dL Salicylates <1.0 mg/dL Acetaminophen <10.0 ug/mL Disposition Clinical Impression: Wellness examination, Accidental drug ingestion Disposition: HOME SELF-CARE Condition: Good Instructions (If sedation given, give patient instructions): Adult Overdose (ED ) Is patient prescribed a controlled substance at d/c from ED?: No Referrals: None,Stated [Primary Care Provider] - 1-2 days Time of Disposition: 12:32
[2018-08-08 11:18] LABS: Basophils % (A) 0 %; Eosinophils # (A) 0.1 k/uL (0-0.7); Eosinophils % (A) 1 %; HCT 35.1 % (39.0-53.0); HGB 12.1 gm/dL (13.0-17.5); Lymphocytes # (A) 0.8 k/uL (1.0-4.8); Lymphocytes % (A) 16 %; MCH 34.9 pg (25.0-35.0); MCHC 34.5 g/dL (31.0-37.0); MCV 101.2 fL (80.0-100.0); Mean Platelet Volume 7.3; Monocytes # (A) 0.4 k/uL (0-1.0); Monocytes % (A) 8 %; Neutrophils # (A) 3.5 k/uL (1.3-7.7); Neutrophils % (A) 73 %; Platelet Count 192 k/uL (150-450); RBC 3.47 m/uL (4.30-5.90); RDW 13.3 % (11.5-15.5); WBC 4.8 k/uL (3.8-10.6)
[2018-08-08 11:30] LABS: ALT 30 U/L (21-72); AST 28 U/L (17-59); Acetaminophen <10.0 ug/mL; Albumin 3.9 g/dL (3.5-5.0); Alkaline Phosphatase 81 U/L (38-126); Anion Gap 6 mmol/L; Blood Urea Nitrogen 26 mg/dL (9-20); Calcium 9.2 mg/dL (8.4-10.2); Carbon Dioxide 29 mmol/L (22-30); Chloride 103 mmol/L (98-107); Glucose 132 mg/dL (74-99); Potassium 3.9 mmol/L (3.5-5.1); Salicylate <1.0 mg/dL; Sodium 138 mmol/L (137-145); Total Bilirubin 0.6 mg/dL (0.2-1.3); Total Protein 6.9 g/dL (6.3-8.2)
[2018-08-08 14:07] VITALS: BP 154/89; PULSE 58; RESP 18
== END 2018-08-08 14:28 | disposition home or self-care (01) ==
LOC: EC 10:22
DX: Z00.01 Encounter for general adult medical examination with abnormal findings (principal); T42.8X1A Poisoning by antiparkinsonism drugs and other central muscle-tone depressants, accidental (unintentional), initial encounter; T42.6X1A Poisoning by other antiepileptic and sedative-hypnotic drugs, accidental (unintentional), initial encounter; T36.4X1A Poisoning by tetracyclines, accidental (unintentional), initial encounter; F03.90 Unspecified dementia, unspecified severity, without behavioral disturbance, psychotic disturbance, mood disturbance, and anxiety; I48.2 Chronic atrial fibrillation; E11.9 Type 2 diabetes mellitus without complications; E78.5 Hyperlipidemia, unspecified; I10 Essential (primary) hypertension; G40.909 Epilepsy, unspecified, not intractable, without status epilepticus; E03.9 Hypothyroidism, unspecified; F41.9 Anxiety disorder, unspecified; F31.9 Bipolar disorder, unspecified; Z79.01 Long term (current) use of anticoagulants; Z79.899 Other long term (current) drug therapy; Z79.890 Hormone replacement therapy; Z95.0 Presence of cardiac pacemaker; Z95.5 Presence of coronary angioplasty implant and graft; Z87.891 Personal history of nicotine dependence
CPT/HCPCS: 36415; 80053; 83520; 85025; 93005; 99284

== ENCOUNTER 2018-08-14 08:31 | Observation (INO) | payer MEDICARE, OTHER ==
--- NOTE | 2018-08-14 08:41 | ED ---
Psych HPI - General Stated Complaint: EPS eval Time Seen by Provider: 08/14/18 08:31 Source: patient, EMS, RN notes reviewed Mode of arrival: EMS - History of Present Illness Initial Comments: This is a 68-year-old male with a history of hypertension A. fib pacemaker pneumonia failure to thrive in the past who apparently lives in a boarding home and since last night is been demonstrating abnormal behavior. Apparently for 4 hours she was standing on his bed naked and applying cc's of the wall. This morning he was demonstrating continued bizarre behavior. He was transported here for evaluation by EMS. The woman apparently runs a boarding home and looks after him is a one that called EMS. Patient per paramedics was awake and alert and seems to be oriented and when asked answered questions repo rts of falls fevers chills nausea vomiting sweats or other symptoms. The woman that the patient lives with does give him his medications. Apparently the patient's daughter recently and since that time he is been demonstrating more symptoms of failure to thrive. Additionally patient does have what appears be new onset of left lower extremity edema MD Complaint: other - Related Data Home Medications Medication Instructions Recorded Confirmed Cholecalciferol [Vitamin D3] 1,000 unit PO DAILY 10/10/15 08/14/18 Divalproex [Depakote] 250 mg PO DAILY 10/10/15 08/14/18 Isosorbide Mononitrate [Isosorbide 30 mg PO HS 10/10/15 08/14/18 Mononitrate ER] carBAMazepine [Carbatrol] 100 mg PO DAILY 10/10/15 08/14/18 Simvastatin [Zocor] 10 mg PO HS 06/11/17 08/14/18 Apixaban [Eliquis] 5 mg PO BID 03/04/18 08/14/18 Lisinopril [Zestril] 10 mg PO DAILY 03/04/18 08/14/18 Potassium Chloride [K-Tab ER] 10 meq PO DAILY 03/04/18 08/14/18 Sennosides [Senna] 17.2 mg PO HS 03/04/18 08/14/18 Docusate [Colace] 200 mg PO HS 05/30/18 08/14/18 Oxybutynin Chloride [Ditropan XL] 10 mg PO DAILY 05/30/18 08/14/18 FLUoxetine HCL [PROzac] 20 mg PO DAILY 07/31/18 08/14/18 Clotrimazole/Betameth Lotion 1 applic TOPICAL BID PRN 08/08/18 08/14/18 [Lotrisone] Levothyroxine Sodium [Synthroid] 125 mcg PO DAILY 08/08/18 08/14/18 Previous Rx's Medication Instructions Recorded Furosemide [Lasix] 40 mg PO DAILY tab 06/02/18 Metoprolol Tartrate [Lopressor] 25 mg PO BID tab 06/02/18 Allergies Allergy/AdvReac Type Severity Reaction Status Date / Time No Known Allergies Allergy Verified 08/14/18 09:22 Review of Systems ROS Statement: Those systems with pertinent positive or pertinent negative responses have been documented in the HPI. ROS Other: All systems not noted in ROS Statement are negative. Past Medical History Past Medical History: Atrial Fibrillation, Diabetes Mellitus, Hyperlipidemia, Hypertension, Seizure Disorder Additional Past Medical History / Comment(s): Chronic Afib, SSS with pacemaker, diet controlled diabetes type II, hepatitis B carrier, pt states last seizure was "long ago", hypothyroid, bilateral lower leg/ankle edema, incontnence of urine at times, hematuria, constipation. History of Any Multi-Drug Resistant Organisms: None Reported Past Surgical History: Bowel Resection, Orthopedic Surgery, Pacemaker Additional Past Surgical History / Comment(s): 2010 generator change in pacer, PCI with stent 2003, cardiac cath 2009, bowel resections x2 d/t small blockages, bilateral cataracts removed, L pinky finger reattached. Past Anesthesia/Blood Transfusion Reactions: No Reported Reaction Type of Cardiac Device: Permanent Pacemaker Device Placement Date:: 07/13/02 Past Psychological History: Anxiety, Bipolar, Depression Smoking Status: Former smoker Past Alcohol Use History: None Reported Past Drug Use History: None Reported - Past Family History Mother Additional Family Medical History / Comment(s): Mother is . Pt states she when her "heart gave out." Father Additional Family Medical History / Comment(s): Father is . Pt cannot recall his medical hx General Exam - General Exam Comments Initial Comments: This a well-developed asthenic appearing male who is awake alert and oriented Limitations: no limitations General appearance: alert, in no apparent distress Head exam: Present: atraumatic, normocephalic, normal inspection Eye exam: Present: normal appearance, PERRL, EOMI. Absent: scleral icterus, conjunctival injection, periorbital swelling ENT exam: Present: mucous membranes dry Neck exam: Present: normal inspection. Absent: tenderness, meningismus, lymphadenopathy Respiratory exam: Present: normal lung sounds bilaterally. Absent: respiratory distress, wheezes, rales, rhonchi, stridor Cardiovascular Exam: Present: normal rhythm, bradycardia. Absent: systolic murmur, diastolic murmur, rubs, gallop, clicks GI/Abdominal exam: Present: soft, normal bowel sounds. Absent: distended, tenderness, guarding, rebound, rigid Extremities exam: Present: normal inspection, full ROM, normal capillary refill, pedal edema (( lower extremity edema). Absent: tenderness, joint swelling, calf tenderness Back exam: Present: normal inspection Neurological exam: Present: alert, oriented X3, CN II-XII intact Psychiatric exam: Present: depressed, flat affect Skin exam: Present: warm, dry, intact, normal color. Absent: rash Course Vital Signs 08/14/18 08/14/18 08/14/18 08:33 09:30 10:00 Temperature 98.8 F Pulse Rate 55 L 82 88 Respiratory 18 18 18 Rate Blood Pressure 171/118 126/78 139/86 O2 Sat by Pulse 99 97 97 Oximetry 08/14/18 08/14/18 08/14/18 11:06 11:30 12:00 Temperature Pulse Rate Respiratory Rate Blood Pressure 160/99 160/99 160/99 O2 Sat by Pulse 91 L Oximetry 08/14/18 08/14/18 08/14/18 12:30 13:00 13:30 Temperature Pulse Rate Respiratory Rate Blood Pressure 160/99 160/99 160/99 O2 Sat by Pulse Oximetry 08/14/18 08/14/18 08/14/18 14:00 14:30 15:00 Temperature Pulse Rate Respiratory Rate Blood Pressure 160/99 160/99 160/99 O2 Sat by Pulse Oximetry 08/14/18 08/14/18 08/14/18 15:30 16:00 16:30 Temperature Pulse Rate Respiratory Rate Blood Pressure 160/99 160/99 160/99 O2 Sat by Pulse Oximetry 08/14/18 08/14/18 08/14/18 17:00 17:30 18:00 Temperature Pulse Rate Respiratory Rate Blood Pressure 160/99 174/107 174/107 O2 Sat by Pulse Oximetry 08/14/18 08/14/18 08/14/18 18:30 19:00 19:30 Temperature Pulse Rate Respiratory Rate Blood Pressure 174/107 174/107 174/107 O2 Sat by Pulse Oximetry 08/14/18 08/14/18 08/14/18 19:42 20:00 20:30 Temperature 97.2 F L Pulse Rate 80 Respiratory 20 Rate Blood Pressure 125/68 174/107 174/107 O2 Sat by Pulse 97 Oximetry 08/14/18 08/14/18 08/14/18 21:00 21:30 22:00 Temperature Pulse Rate Respiratory Rate Blood Pressure 174/107 174/107 174/107 O2 Sat by Pulse Oximetry 08/14/18 08/14/18 08/14/18 22:30 23:00 23:30 Temperature Pulse Rate Respiratory Rate Blood Pressure 174/107 174/107 174/107 O2 Sat by Pulse Oximetry 08/14/18 08/15/18 08/15/18 23:42 00:00 00:30 Temperature 97.0 F L Pulse Rate 51 L Respiratory 20 Rate Blood Pressure 142/71 174/107 174/107 O2 Sat by Pulse 97 Oximetry 08/15/18 08/15/18 08/15/18 01:00 01:30 02:00 Temperature Pulse Rate Respiratory Rate Blood Pressure 174/107 174/107 174/107 O2 Sat by Pulse Oximetry 08/15/18 08/15/18 08/15/18 02:30 03:00 03:30 Temperature Pulse Rate Respiratory Rate Blood Pressure 174/107 174/107 174/107 O2 Sat by Pulse Oximetry 08/15/18 08/15/18 08/15/18 04:00 04:30 05:00 Temperature Pulse Rate Respiratory Rate Blood Pressure 174/107 174/107 174/107 O2 Sat by Pulse Oximetry 08/15/18 08/15/18 08/15/18 05:30 06:00 06:30 Temperature Pulse Rate Respiratory Rate Blood Pressure 174/107 174/107 174/107 O2 Sat by Pulse Oximetry 08/15/18 08/15/18 08/15/18 07:00 07:08 07:30 Temperature 97.6 F Pulse Rate 85 Respiratory 18 Rate Blood Pressure 174/107 195/99 174/107 O2 Sat by Pulse 96 Oximetry 0308/15/18 08/15/18 08:00 08:18 22:33 Temperature Pulse Rate 58 L 70 Respiratory 16 16 Rate Blood Pressure 174/107 164/102 177/100 O2 Sat by Pulse 99 99 Oximetry 08/16/18 08/16/18 08/16/18 04:24 05:00 07:25 Temperature Pulse Rate 59 L 76 76 Respiratory 16 19 19 Rate Blood Pressure 172/95 O2 Sat by Pulse 97 98 98 Oximetry 08/16/18 08/16/18 08/17/18 07:27 20:00 04:34 Temperature 98.2 F 98.6 F Pulse Rate 73 60 Respiratory 18 19 Rate Blood Pressure 175/107 187/128 137/96 O2 Sat by Pulse 96 99 Oximetry 08/17/18 08/17/18 08/17/18 08:45 11:01 20:40 Temperature 97.6 F Pulse Rate 62 93 Respiratory 18 20 Rate Blood Pressure 177/101 144/96 179/95 O2 Sat by Pulse 97 100 100 Oximetry 08/17/18 22:17 Temperature 97.2 F L Pulse Rate 69 Respiratory 18 Rate Blood Pressure 137/96 O2 Sat by Pulse 99 Oximetry - Reevaluation(s) Reevaluation #1: 08/14/18 12:05 The patient is evaluated by the EPS service this time he will require a geriatric psychiatric facility. A clinical certain was being filled out by me Reevaluation #2: 08/15/18 13:05 I did reevaluate the patient I did fill out another clinical certification the patient he is pending transfer to a geriatric psychiatric facility. He has been resting comfortably throughout the night. Medical Decision Making - Medical Decision Making The patient was evaluated by the EPS service and sent back the the [facility] per records - Lab Data Result diagrams: 08/19/18 07:50 08/19/18 07:50 Lab Results 08/14/18 08/14/18 08/14/18 Range/Units 08:34 08:34 08:34 WBC (3.8-10.6) k/uL RBC (4.30-5.90) m/uL Hgb (13.0-17.5) gm/dL Hct (39.0-53.0) % MCV (80.0-100.0) fL MCH (25.0-35.0) pg MCHC (31.0-37.0) g/dL RDW (11.5-15.5) % Plt Count (150-450) k/uL Neutrophils % % Lymphocytes % % Monocytes % % Eosinophils % % Basophils % % Neutrophils # (1.3-7.7) k/uL Lymphocytes # (1.0-4.8) k/uL Monocytes # (0-1.0) k/uL Eosinophils # (0-0.7) k/uL Basophils # (0-0.2) k/uL D-Dimer (<0.60) mg/L FEU Sodium 143 (137-145) mmol/L Potassium 3.9 (3.5-5.1) mmol/L Chloride 105 (98-107) mmol/L Carbon Dioxide 26 (22-30) mmol/L Anion Gap 12 mmol/L BUN 39 H (9-20) mg/dL Creatinine 0.90 (0.66-1.25) mg/dL Est GFR (CKD-EPI)AfAm >90 (>60 ml/min/1.73 sqM) Est GFR (CKD-EPI)NonAf 87 (>60 ml/min/1.73 sqM) Glucose 162 H (74-99) mg/dL Calcium 10.0 (8.4-10.2) mg/dL Magnesium 1.6 (1.6-2.3) mg/dL Total Bilirubin 0.9 (0.2-1.3) mg/dL AST 28 (17-59) U/L ALT 24 (21-72) U/L Alkaline Phosphatase 88 (38-126) U/L Ammonia <9 (<30) umol/L Total Creatine Kinase 111 (55-170) U/L CK-MB (CK-2) 3.3 H (0.0-2.4) ng/mL CK-MB (CK-2) Rel Index 3.0 Total Protein 7.9 (6.3-8.2) g/dL Albumin 4.5 (3.5-5.0) g/dL Amylase 32 (30-110) U/L Lipase 79 (23-300) U/L Urine Color Urine Appearance (Clear) Urine pH (5.0-8.0) Ur Specific Jadwin (1.001-1.035) Urine Protein (Negative) Urine Glucose (UA) (Negative) Urine Ketones (Negative) Urine Blood (Negative) Urine Nitrite (Negative) Urine Bilirubin (Negative) Urine Urobilinogen (<2.0) mg/dL Ur Leukocyte Esterase (Negative) Salicylates <1.0 mg/dL Urine Opiates Screen (NotDetected) Ur Oxycodone Screen (NotDetected) Urine Methadone Screen (NotDetected) Ur Propoxyphene Screen (NotDetected) Acetaminophen <10.0 ug/mL Ur Barbiturates Screen (NotDetected) Valproic Acid ug/mL U Tricyclic Antidepress (NotDetected) Ur Phencyclidine Scrn (NotDetected) Ur Amphetamines Screen (NotDetected) U Methamphetamines Scrn (NotDetected) U Benzodiazepines Scrn (NotDetected) Urine Cocaine Screen (NotDetected) U Marijuana (THC) Screen (NotDetected) Serum Alcohol <10 mg/dL 08/14/18 08/14/18 08/14/18 Range/Units 08:34 08:34 08:34 WBC 7.6 (3.8-10.6) k/uL RBC 4.04 L (4.30-5.90) m/uL Hgb 13.7 (13.0-17.5) gm/dL Hct 40.0 (39.0-53.0) % MCV 99.0 (80.0-100.0) fL MCH 33.9 (25.0-35.0) pg MCHC 34.2 (31.0-37.0) g/dL RDW 13.7 (11.5-15.5) % Plt Count 236 (150-450) k/uL Neutrophils % 79 % Lymphocytes % 11 % Monocytes % 8 % Eosinophils % 1 % Basophils % 0 % Neutrophils # 6.0 (1.3-7.7) k/uL Lymphocytes # 0.8 L (1.0-4.8) k/uL Monocytes # 0.6 (0-1.0) k/uL Eosinophils # 0.1 (0-0.7) k/uL Basophils # 0.0 (0-0.2) k/uL D-Dimer 0.47 (<0.60) mg/L FEU Sodium (137-145) mmol/L Potassium (3.5-5.1) mmol/L Chloride (98-107) mmol/L Carbon Dioxide (22-30) mmol/L Anion Gap mmol/L BUN (9-20) mg/dL Creatinine (0.66-1.25) mg/dL Est GFR (CKD-EPI)AfAm (>60 ml/min/1.73 sqM) Est GFR (CKD-EPI)NonAf (>60 ml/min/1.73 sqM) Glucose (74-99) mg/dL Calcium (8.4-10.2) mg/dL Magnesium (1.6-2.3) mg/dL Total Bilirubin (0.2-1.3) mg/dL AST (17-59) U/L ALT (21-72) U/L Alkaline Phosphatase (38-126) U/L Ammonia (<30) umol/L Total Creatine Kinase (55-170) U/L CK-MB (CK-2) (0.0-2.4) ng/mL CK-MB (CK-2) Rel Index Total Protein (6.3-8.2) g/dL Albumin (3.5-5.0) g/dL Amylase (30-110) U/L Lipase (23-300) U/L Urine Color Urine Appearance (Clear) Urine pH (5.0-8.0) Ur Specific Jadwin (1.001-1.035) Urine Protein (Negative) Urine Glucose (UA) (Negative) Urine Ketones (Negative) Urine Blood (Negative) Urine Nitrite (Negative) Urine Bilirubin (Negative) Urine Urobilinogen (<2.0) mg/dL Ur Leukocyte Esterase (Negative) Salicylates mg/dL Urine Opiates Screen (NotDetected) Ur Oxycodone Screen (NotDetected) Urine Methadone Screen (NotDetected) Ur Propoxyphene Screen (NotDetected) Acetaminophen ug/mL Ur Barbiturates Screen (NotDetected) Valproic Acid 105.8 ug/mL U Tricyclic Antidepress (NotDetected) Ur Phencyclidine Scrn (NotDetected) Ur Amphetamines Screen (NotDetected) U Methamphetamines Scrn (NotDetected) U Benzodiazepines Scrn (NotDetected) Urine Cocaine Screen (NotDetected) U Marijuana (THC) Screen (NotDetected) Serum Alcohol mg/dL 08/14/18 Range/Units 10:10 WBC (3.8-10.6) k/uL RBC (4.30-5.90) m/uL Hgb (13.0-17.5) gm/dL Hct (39.0-53.0) % MCV (80.0-100.0) fL MCH (25.0-35.0) pg MCHC (31.0-37.0) g/dL RDW (11.5-15.5) % Plt Count (150-450) k/uL Neutrophils % % Lymphocytes % % Monocytes % % Eosinophils % % Basophils % % Neutrophils # (1.3-7.7) k/uL Lymphocytes # (1.0-4.8) k/uL Monocytes # (0-1.0) k/uL Eosinophils # (0-0.7) k/uL Basophils # (0-0.2) k/uL D-Dimer (<0.60) mg/L FEU Sodium (137-145) mmol/L Potassium (3.5-5.1) mmol/L Chloride (98-107) mmol/L Carbon Dioxide (22-30) mmol/L Anion Gap mmol/L BUN (9-20) mg/dL Creatinine (0.66-1.25) mg/dL Est GFR (CKD-EPI)AfAm (>60 ml/min/1.73 sqM) Est GFR (CKD-EPI)NonAf (>60 ml/min/1.73 sqM) Glucose (74-99) mg/dL Calcium (8.4-10.2) mg/dL Magnesium (1.6-2.3) mg/dL Total Bilirubin (0.2-1.3) mg/dL AST (17-59) U/L ALT (21-72) U/L Alkaline Phosphatase (38-126) U/L Ammonia (<30) umol/L Total Creatine Kinase (55-170) U/L CK-MB (CK-2) (0.0-2.4) ng/mL CK-MB (CK-2) Rel Index Total Protein (6.3-8.2) g/dL Albumin (3.5-5.0) g/dL Amylase (30-110) U/L Lipase (23-300) U/L Urine Color Colorless Urine Appearance Clear (Clear) Urine pH 5.0 (5.0-8.0) Ur Specific Jadwin 1.005 (1.001-1.035) Urine Protein Negative (Negative) Urine Glucose (UA) Negative (Negative) Urine Ketones Negative (Negative) Urine Blood Negative (Negative) Urine Nitrite Negative (Negative) Urine Bilirubin Negative (Negative) Urine Urobilinogen <2.0 (<2.0) mg/dL Ur Leukocyte Esterase Negative (Negative) Salicylates mg/dL Urine Opiates Screen Not Detected (NotDetected) Ur Oxycodone Screen Not Detected (NotDetected) Urine Methadone Screen Not Detected (NotDetected) Ur Propoxyphene Screen Not Detected (NotDetected) Acetaminophen ug/mL Ur Barbiturates Screen Not Detected (NotDetected) Valproic Acid ug/mL U Tricyclic Antidepress Not Detected (NotDetected) Ur Phencyclidine Scrn Not Detected (NotDetected) Ur Amphetamines Screen Not Detected (NotDetected) U Methamphetamines Scrn Not Detected (NotDetected) U Benzodiazepines Scrn Not Detected (NotDetected) Urine Cocaine Screen Not Detected (NotDetected) U Marijuana (THC) Screen Not Detected (NotDetected) Serum Alcohol mg/dL - EKG Data -: EKG Interpreted by Me (Ventricular paced rhythm with occasional supraventricular complexes rate wa) Disposition Clinical Impression: Dementia Disposition: HOME SELF-CARE Condition: Fair Is patient prescribed a controlled substance at d/c from ED?: No
[2018-08-14 09:01] LABS: Basophils % (A) 0 %; Eosinophils # (A) 0.1 k/uL (0-0.7); Eosinophils % (A) 1 %; HGB 13.7 gm/dL (13.0-17.5); Lymphocytes # (A) 0.8 k/uL (1.0-4.8); Lymphocytes % (A) 11 %; MCH 33.9 pg (25.0-35.0); MCHC 34.2 g/dL (31.0-37.0); Mean Platelet Volume 7.5; Monocytes # (A) 0.6 k/uL (0-1.0); Monocytes % (A) 8 %; Neutrophils % (A) 79 %; Platelet Count 236 k/uL (150-450); RBC 4.04 m/uL (4.30-5.90); RDW 13.7 % (11.5-15.5); WBC 7.6 k/uL (3.8-10.6)
[2018-08-14 09:12] LABS: ALT 24 U/L (21-72); AST 28 U/L (17-59); Acetaminophen <10.0 ug/mL; Albumin 4.5 g/dL (3.5-5.0); Alcohol <10 mg/dL; Alkaline Phosphatase 88 U/L (38-126); Amylase 32 U/L (30-110); Anion Gap 12 mmol/L; Blood Urea Nitrogen 39 mg/dL (9-20); Carbon Dioxide 26 mmol/L (22-30); Chloride 105 mmol/L (98-107); Glucose 162 mg/dL (74-99); Lipase 79 U/L (23-300); Magnesium 1.6 mg/dL (1.6-2.3); Potassium 3.9 mmol/L (3.5-5.1); Salicylate <1.0 mg/dL; Sodium 143 mmol/L (137-145); Total Bilirubin 0.9 mg/dL (0.2-1.3); Total Protein 7.9 g/dL (6.3-8.2)
--- NOTE | 2018-08-14 09:30 | XR ---
EXAMINATION TYPE: XR chest 2V DATE OF EXAM: 08/14/2018 COMPARISON: Prior chest x-ray 07/31/2018 HISTORY: Cough TECHNIQUE: Frontal and lateral views of the chest are obtained on 4 images. FINDINGS: Prominent lung volumes suggest underlying COPD. Flowing anterior osteophytes along the tho racic spine with preservation of disc spaces may be indicative of diffuse idiopathic skeletal hyperos tosis. No airspace disease, pneumothorax, or pleural effusion. Pacemaker present in the left pectoral region, there is a lead in the right ventricle. Aorta is dense. Cardiac mediastinal silhouette, pulm onary vascularity and briana are stable. Arthropathy noted shoulders. IMPRESSION: No acute cardiopulmonary process.
[2018-08-14 09:31] LABS: Creatine Kinase MB 3.3 ng/mL (0.0-2.4)
--- NOTE | 2018-08-14 09:41 | CT ---
EXAMINATION TYPE: CT brain wo con DATE OF EXAM: 08/14/2018 COMPARISON: Prior CT brain 05/30/2018 HISTORY: Altered mental status CT DLP: 1097.4 mGycm Automated exposure control for dose reduction was used. Helical imaging through the brain. FINDINGS: Cerebral vascular calcifications are present. Cortical atrophy again noted. No hemorrhage or hydrocep halus. Calvarium is intact. Inflammatory change in the left maxillary sinus, possible polyp or mucus retention cyst again noted. Cerumen present in the external auditory canal on the right. Periventricu lar white matter shows patchy low attenuation. Orbits are symmetric. IMPRESSION: STABLE EXAM, NO ACUTE ABNORMALITY IS EVIDENT. Age-related atrophy and chronic small vessel ischemia.
--- NOTE | 2018-08-14 10:22 | US ---
EXAMINATION TYPE: US venous doppler duplex LE LT DATE OF EXAM: 08/14/2018 10:05 AM COMPARISON: US 2009 CLINICAL HISTORY: Pain. Pt states left leg swelling for "quite some time" SIDE PERFORMED: Left TECHNIQUE: The lower extremity deep venous system is examined utilizing real time linear array sonog ruth ann with graded compression, doppler sonography and color-flow sonography. VESSELS IMAGED: External Iliac Vein (EIV) Common Femoral Vein Deep Femoral Vein Greater Saphenous Vein * Femoral Vein Popliteal Vein Small Saphenous Vein * Proximal Calf Veins (* superficial vessels) There is normal flow, compressibility, vascular waveforms. Left Leg: Negative for DVT IMPRESSION: No evident deep venous thrombosis at or above the left knee
[2018-08-14 10:25] LABS: Appearance,Urine Clear (Clear); Bilirubin,Urine Negative (Negative); Blood,Urine Negative (Negative); Color,Urine Colorless; Glucose,Urine (UA) Negative (Negative); Ketones,Urine Negative (Negative); Leukocyte Esterase,Urine Negative (Negative); Nitrite,Urine Negative (Negative); Protein,Urine Negative (Negative); Specific Gravity,Urine 1.005 (1.001-1.035); Urobilinogen,Urine <2.0 mg/dL (<2.0)
[2018-08-14 10:39] LABS: Amphetamine Screen,Urine Not Detected (NotDetected); Barbiturate Screen,Urine Not Detected (NotDetected); Benzodiazepines Screen,Urine Not Detected (NotDetected); Cocaine Screen,Urine Not Detected (NotDetected); Methadone Screen, Urine Not Detected (NotDetected); Opiate Screen,Urine Not Detected (NotDetected); Oxycodone Screen, Urine Not Detected (NotDetected); Phencyclidine Screen,Urine Not Detected (NotDetected); Tricyclic Antidepressant,Urine Not Detected (NotDetected); Urn Cannabinoid Scrn Not Detected (NotDetected)
[2018-08-14] MEDS ORDERED: SODIUM CHLORIDE 0.9% 1,000 ML IV STA (10:59)
[2018-08-14] MEDS ORDERED: LORazepam 2 MG/ML INJ IV STA (17:26)
[2018-08-15] MEDS ORDERED: CLOTRIMAZOLE/BETAMETH 1-0.05% LOTION 30 ML BTL TOPICAL PRN (07:20)
[2018-08-15] MEDS: LEVOTHYROXINE 125 MCG TAB PO SCH (08:20)
[2018-08-15] MEDS: OXYBUTYNIN 10 MG TAB.ER.24 PO SCH (08:20)
[2018-08-15] MEDS: DIVALPROEX 250 MG TABLET.DR PO SCH (08:20)
[2018-08-15] MEDS: POTASSIUM CHLORIDE ER 10 MEQ TAB.ER.PRT PO SCH (08:20)
[2018-08-15] MEDS: carBAMazepine 100 MG TAB.ER.12H PO SCH (08:20)
[2018-08-15] MEDS: FLUoxetine HCL 20 MG CAP PO SCH (08:20)
[2018-08-15] MEDS: METOPROLOL TARTRATE 25 MG TAB PO SCH (08:21)
[2018-08-15] MEDS: FUROSEMIDE 40 MG TAB PO SCH (08:29)
[2018-08-15] MEDS: LISINOPRIL 10 MG TAB PO SCH (08:29)
[2018-08-15] MEDS: APIXABAN 5 MG TAB PO SCH ×2 (08:29→22:30)
[2018-08-15] MEDS: CHOLECALCIFEROL 1,000 UNIT TAB PO SCH ×2 (12:11→22:30)
[2018-08-15] MEDS: ATORVASTATIN 10 MG TAB PO SCH (22:29)
[2018-08-15] MEDS: SENNOSIDES 8.6 MG TAB PO SCH (22:30)
[2018-08-15] MEDS: DOCUSATE 100 MG CAP PO SCH (22:31)
[2018-08-15] MEDS: ISOSORBIDE MONONITRATE ER 30 MG TAB.ER.24H PO SCH (22:37)
--- NOTE | 2018-08-16 02:39 | CDI ---
Documentation Clarification OP Dear Dr. Yayo Diop Please provide clinical impression Thank you, Clyde Whitman Tool Maker Bench If you have any questions, please contact Aircraft Load Controller at [phone] see addendum on 2nd ED record. MTDD
[2018-08-16] MEDS: LEVOTHYROXINE 125 MCG TAB PO SCH (07:50)
[2018-08-16] MEDS: APIXABAN 5 MG TAB PO SCH ×2 (08:00→20:43)
[2018-08-16] MEDS: carBAMazepine 100 MG TAB.ER.12H PO SCH (08:01)
[2018-08-16] MEDS: FLUoxetine HCL 20 MG CAP PO SCH (08:03)
[2018-08-16] MEDS: DIVALPROEX 250 MG TABLET.DR PO SCH (08:03)
[2018-08-16] MEDS: LISINOPRIL 10 MG TAB PO SCH (08:05)
[2018-08-16] MEDS: METOPROLOL TARTRATE 25 MG TAB PO SCH ×2 (08:06→20:42)
[2018-08-16] MEDS: FUROSEMIDE 40 MG TAB PO SCH (08:07)
[2018-08-16] MEDS: OXYBUTYNIN 10 MG TAB.ER.24 PO SCH (08:09)
[2018-08-16] MEDS: POTASSIUM CHLORIDE ER 10 MEQ TAB.ER.PRT PO SCH (08:10)
[2018-08-16] MEDS: ISOSORBIDE MONONITRATE ER 30 MG TAB.ER.24H PO SCH (20:42)
[2018-08-16] MEDS: DOCUSATE 100 MG CAP PO SCH (20:42)
[2018-08-16] MEDS: ATORVASTATIN 10 MG TAB PO SCH (20:42)
[2018-08-16] MEDS: SENNOSIDES 8.6 MG TAB PO SCH (20:42)
[2018-08-17] MEDS: METOPROLOL TARTRATE 25 MG TAB PO SCH ×2 (07:44→08:56)
[2018-08-17] MEDS: LEVOTHYROXINE 125 MCG TAB PO SCH (08:44)
[2018-08-17] MEDS: APIXABAN 5 MG TAB PO SCH (08:52)
[2018-08-17] MEDS: carBAMazepine 100 MG TAB.ER.12H PO SCH (08:53)
[2018-08-17] MEDS: DIVALPROEX 250 MG TABLET.DR PO SCH (08:54)
[2018-08-17] MEDS: FLUoxetine HCL 20 MG CAP PO SCH (08:55)
[2018-08-17] MEDS: LISINOPRIL 10 MG TAB PO SCH (08:57)
[2018-08-17] MEDS: FUROSEMIDE 40 MG TAB PO SCH (08:57)
[2018-08-17] MEDS: OXYBUTYNIN 10 MG TAB.ER.24 PO SCH (08:58)
[2018-08-17] MEDS: POTASSIUM CHLORIDE ER 10 MEQ TAB.ER.PRT PO SCH (08:59)
[2018-08-17] MEDS: CHOLECALCIFEROL 1,000 UNIT TAB PO SCH (14:25)
--- NOTE | 2018-08-17 19:22 | ED ---
General Adult HPI - General Chief complaint: Psychiatric Symptoms Stated complaint: EPS eval Time Seen by Provider: 08/14/18 08:31 Source: patient, EMS, RN notes reviewed Mode of arrival: EMS Limitations: no limitations - Related Data Home Medications Medication Instructions Recorded Confirmed Cholecalciferol [Vitamin D3] 1,000 unit PO DAILY 10/10/15 08/14/18 Divalproex [Depakote] 250 mg PO DAILY 10/10/15 08/14/18 Isosorbide Mononitrate [Isosorbide 30 mg PO HS 10/10/15 08/14/18 Mononitrate ER] carBAMazepine [Carbatrol] 100 mg PO DAILY 10/10/15 08/14/18 Simvastatin [Zocor] 10 mg PO HS 06/11/17 08/14/18 Apixaban [Eliquis] 5 mg PO BID 03/04/18 08/14/18 Lisinopril [Zestril] 10 mg PO DAILY 03/04/18 08/14/18 Potassium Chloride [K-Tab ER] 10 meq PO DAILY 03/04/18 08/14/18 Sennosides [Senna] 17.2 mg PO HS 03/04/18 08/14/18 Docusate [Colace] 200 mg PO HS 05/30/18 08/14/18 Oxybutynin Chloride [Ditropan XL] 10 mg PO DAILY 05/30/18 08/14/18 FLUoxetine HCL [PROzac] 20 mg PO DAILY 07/31/18 08/14/18 Clotrimazole/Betameth Lotion 1 applic TOPICAL BID PRN 08/08/18 08/14/18 [Lotrisone] Levothyroxine Sodium [Synthroid] 125 mcg PO DAILY 08/08/18 08/14/18 Previous Rx's Medication Instructions Recorded Furosemide [Lasix] 40 mg PO DAILY tab 06/02/18 Metoprolol Tartrate [Lopressor] 25 mg PO BID tab 06/02/18 Allergies Allergy/AdvReac Type Severity Reaction Status Date / Time No Known Allergies Allergy Verified 08/14/18 09:22 Review of Systems ROS Statement: Those systems with pertinent positive or pertinent negative responses have been documented in the HPI. ROS Other: All systems not noted in ROS Statement are negative. Past Medical History Past Medical History: Atrial Fibrillation, Diabetes Mellitus, Hyperlipidemia, Hypertension, Seizure Disorder Additional Past Medical History / Comment(s): Chronic Afib, SSS with pacemaker, diet controlled diabetes type II, hepatitis B carrier, pt states last seizure was "long ago", hypothyroid, bilateral lower leg/ankle edema, incontnence of urine at times, hematuria, constipation. History of Any Multi-Drug Resistant Organisms: None Reported Past Surgical History: Bowel Resection, Orthopedic Surgery, Pacemaker Additional Past Surgical History / Comment(s): 2010 generator change in pacer, P CI with stent 2003, cardiac cath 2009, bowel resections x2 d/t small blockages, bilateral cataracts removed, L pinky finger reattached. Past Anesthesia/Blood Transfusion Reactions: No Reported Reaction Type of Cardiac Device: Permanent Pacemaker Device Placement Date:: 07/13/02 Past Psychological History: Anxiety, Bipolar, Depression Smoking Status: Former smoker Past Alcohol Use History: None Reported Past Drug Use History: None Reported - Past Family History Mother Additional Family Medical History / Comment(s): Mother is . Pt states she when her "heart gave out." Father Additional Family Medical History / Comment(s): Father is . Pt cannot recall his medical hx General Exam Limitations: no limitations General appearance: alert, in no apparent distress Course Vital Signs 08/14/18 08/14/18 08/14/18 08:33 09:30 10:00 Temperature 98.8 F Pulse Rate 55 L 82 88 Respiratory 18 18 18 Rate Blood Pressure 171/118 126/78 139/86 O2 Sat by Pulse 99 97 97 Oximetry 08/14/18 08/14/18 08/14/18 11:06 11:30 12:00 Temperature Pulse Rate Respiratory Rate Blood Pressure 160/99 160/99 160/99 O2 Sat by Pulse 91 L Oximetry 08/14/18 08/14/18 08/14/18 12:30 13:00 13:30 Temperature Pulse Rate Respiratory Rate Blood Pressure 160/99 160/99 160/99 O2 Sat by Pulse Oximetry 08/14/18 08/14/18 08/14/18 14:00 14:30 15:00 Temperature Pulse Rate Respiratory Rate Blood Pressure 160/99 160/99 160/99 O2 Sat by Pulse Oximetry 08/14/18 08/14/18 08/14/18 15:30 16:00 16:30 Temperature Pulse Rate Respiratory Rate Blood Pressure 160/99 160/99 160/99 O2 Sat by Pulse Oximetry 08/14/18 08/14/18 08/14/18 17:00 17:30 18:00 Temperature Pulse Rate Respiratory Rate Blood Pressure 160/99 174/107 174/107 O2 Sat by Pulse Oximetry 08/14/18 08/14/18 08/14/18 18:30 19:00 19:30 Temperature Pulse Rate Respiratory Rate Blood Pressure 174/107 174/107 174/107 O2 Sat by Pulse Oximetry 08/14/18 08/14/18 08/14/18 19:42 20:00 20:30 Temperature 97.2 F L Pulse Rate 80 Respiratory 20 Rate Blood Pressure 125/68 174/107 174/107 O2 Sat by Pulse 97 Oximetry 08/14/18 08/14/18 08/14/18 21:00 21:30 22:00 Temperature Pulse Rate Respiratory Rate Blood Pressure 174/107 174/107 174/107 O2 Sat by Pulse Oximetry 08/14/18 08/14/18 08/14/18 22:30 23:00 23:30 Temperature Pulse Rate Respiratory Rate Blood Pressure 174/107 174/107 174/107 O2 Sat by Pulse Oximetry 08/14/18 08/15/18 08/15/18 23:42 00:00 00:30 Temperature 97.0 F L Pulse Rate 51 L Respiratory 20 Rate Blood Pressure 142/71 174/107 174/107 O2 Sat by Pulse 97 Oximetry 08/15/18 08/15/18 08/15/18 01:00 01:30 02:00 Temperature Pulse Rate Respiratory Rate Blood Pressure 174/107 174/107 174/107 O2 Sat by Pulse Oximetry 08/15/18 08/15/18 08/15/18 02:30 03:00 03:30 Temperature Pulse Rate Respiratory Rate Blood Pressure 174/107 174/107 174/107 O2 Sat by Pulse Oximetry 08/15/18 08/15/18 08/15/18 04:00 04:30 05:00 Temperature Pulse Rate Respiratory Rate Blood Pressure 174/107 174/107 174/107 O2 Sat by Pulse Oximetry 08/15/18 08/15/18 08/15/18 05:30 06:00 06:30 Temperature Pulse Rate Respiratory Rate Blood Pressure 174/107 174/107 174/107 O2 Sat by Pulse Oximetry 08/15/18 08/15/18 08/15/18 07:00 07:08 07:30 Temperature 97.6 F Pulse Rate 85 Respiratory 18 Rate Blood Pressure 174/107 195/99 174/107 O2 Sat by Pulse 96 Oximetry 08/15/18 08/15/18 08/15/18 08:00 08:18 22:33 Temperature Pulse Rate 58 L 70 Respiratory 16 16 Rate Blood Pressure 174/107 164/102 177/100 O2 Sat by Pulse 99 99 Oximetry 08/16/18 08/16/18 08/16/18 04:24 05:00 07:25 Temperature Pulse Rate 59 L 76 76 Respiratory 16 19 19 Rate Blood Pressure 172/95 O2 Sat by Pulse 97 98 98 Oximetry 08/16/18 08/16/18 08/17/18 07:27 20:00 04:34 Temperature 98.2 F 98.6 F Pulse Rate 73 60 Respiratory 18 19 Rate Blood Pressure 175/107 187/128 137/96 O2 Sat by Pulse 96 99 Oximetry 08/17/18 08/17/18 08:45 11:01 Temperature Pulse Rate 62 Respiratory 18 Rate Blood Pressure 177/101 144/96 O2 Sat by Pulse 97 100 Oximetry Medical Decision Making - Medical Decision Making Vital decision making; the patient was evaluated by the psychiatric nurse to the emergency room. She spoke with on-call psychiatrist. She also spoke with the the public guardian. The plans for the patient be returned to the foster care that he was originally staying at. Labs within normal limits. Dr. Uriarte - Lab Data Result diagrams: 08/14/18 08:34 08/14/18 08:34 Lab Results 08/14/18 08/14/18 08/14/18 Range/Units 08:34 08:34 08:34 WBC (3.8-10.6) k/uL RBC (4.30-5.90) m/uL Hgb (13.0-17.5) gm/dL Hct (39.0-53.0) % MCV (80.0-100.0) fL MCH (25.0-35.0) pg MCHC (31.0-37.0) g/dL RDW (11.5-15.5) % Plt Count (150-450) k/uL Neutrophils % % Lymphocytes % % Monocytes % % Eosinophils % % Basophils % % Neutrophils # (1.3-7.7) k/uL Lymphocytes # (1.0-4.8) k/uL Monocytes # (0-1.0) k/uL Eosinophils # (0-0.7) k/uL Basophils # (0-0.2) k/uL D-Dimer (<0.60) mg/L FEU Sodium 143 (137-145) mmol/L Potassium 3.9 (3.5-5.1) mmol/L Chloride 105 (98-107) mmol/L Carbon Dioxide 26 (22-30) mmol/L Anion Gap 12 mmol/L BUN 39 H (9-20) mg/dL Creatinine 0.90 (0.66-1.25) mg/dL Est GFR (CKD-EPI)AfAm >90 (>60 ml/min/1.73 sqM) Est GFR (CKD-EPI)NonAf 87 (>60 ml/min/1.73 sqM) Glucose 162 H (74-99) mg/dL Calcium 10.0 (8.4-10.2) mg/dL Magnesium 1.6 (1.6-2.3) mg/dL Total Bilirubin 0.9 (0.2-1.3) mg/dL AST 28 (17-59) U/L ALT 24 (21-72) U/L Alkaline Phosphatase 88 (38-126) U/L Ammonia <9 (<30) umol/L Total Creatine Kinase 111 (55-170) U/L CK-MB (CK-2) 3.3 H (0.0-2.4) ng/mL CK-MB (CK-2) Rel Index 3.0 Total Protein 7.9 (6.3-8.2) g/dL Albumin 4.5 (3.5-5.0) g/dL Amylase 32 (30-110) U/L Lipase 79 (23-300) U/L Urine Color Urine Appearance (Clear) Urine pH (5.0-8.0) Ur Specific [place] (1.001-1.035) Urine Protein (Negative) Urine Glucose (UA) (Negative) Urine Ketones (Negative) Urine Blood (Negative) Urine Nitrite (Negative) Urine Bilirubin (Negative) Urine Urobilinogen (<2.0) mg/dL Ur Leukocyte Esterase (Negative) Salicylates <1.0 mg/dL Urine Opiates Screen (NotDetected) Ur Oxycodone Screen (NotDetected) Urine Methadone Screen (NotDetected) Ur Propoxyphene Screen (NotDetected) Acetaminophen <10.0 ug/mL Ur Barbiturates Screen (NotDetected) Valproic Acid ug/mL U Tricyclic Antidepress (NotDetected) Ur Phencyclidine Scrn (NotDetected) Ur Amphetamines Screen (NotDetected) U Methamphetamines Scrn (NotDetected) U Benzodiazepines Scrn (NotDetected) Urine Cocaine Screen (NotDetected) U Marijuana (THC) Screen (NotDetected) Serum Alcohol <10 mg/dL 08/14/18 08/14/18 08/14/18 Range/Units 08:34 08:34 08:34 WBC 7.6 (3.8-10.6) k/uL RBC 4.04 L (4.30-5.90) m/uL Hgb 13.7 (13.0-17.5) gm/dL Hct 40.0 (39.0-53.0) % MCV 99.0 (80.0-100.0) fL MCH 33.9 (25.0-35.0) pg MCHC 34.2 (31.0-37.0) g/dL RDW 13.7 (11.5-15.5) % Plt Count 236 (150-450) k/uL Neutrophils % 79 % Lymphocytes % 11 % Monocytes % 8 % Eosinophils % 1 % Basophils % 0 % Neutrophils # 6.0 (1.3-7.7) k/uL Lymphocytes # 0.8 L (1.0-4.8) k/uL Monocytes # 0.6 (0-1.0) k/uL Eosinophils # 0.1 (0-0.7) k/uL Basophils # 0.0 (0-0.2) k/uL D-Dimer 0.47 (<0.60) mg/L FEU Sodium (137-145) mmol/L Potassium (3.5-5.1) mmol/L Chloride (98-107) mmol/L Carbon Dioxide (22-30) mmol/L Anion Gap mmol/L BUN (9-20) mg/dL Creatinine (0.66-1.25) mg/dL Est GFR (CKD-EPI)AfAm (>60 ml/min/1.73 sqM) Est GFR (CKD-EPI)NonAf (>60 ml/min/1.73 sqM) Glucose (74-99) mg/dL Calcium (8.4-10.2) mg/dL Magnesium (1.6-2.3) mg/dL Total Bilirubin (0.2-1.3) mg/dL AST (17-59) U/L ALT (21-72) U/L Alkaline Phosphatase (38-126) U/L Ammonia (<30) umol/L Total Creatine Kinase (55-170) U/L CK-MB (CK-2) (0.0-2.4) ng/mL CK-MB (CK-2) Rel Index Total Protein (6.3-8.2) g/dL Albumin (3.5-5.0) g/dL Amylase (30-110) U/L Lipase (23-300) U/L Urine Color Urine Appearance (Clear) Urine pH (5.0-8.0) Ur Specific [place] (1.001-1.035) Urine Protein (Negative) Urine Glucose (UA) (Negative) Urine Ketones (Negative) Urine Blood (Negative) Urine Nitrite (Negative) Urine Bilirubin (Negative) Urine Urobilinogen (<2.0) mg/dL Ur Leukocyte Esterase (Negative) Salicylates mg/dL Urine Opiates Screen (NotDetected) Ur Oxycodone Screen (NotDetected) Urine Methadone Screen (NotDetected) Ur Propoxyphene Screen (NotDetected) Acetaminophen ug/mL Ur Barbiturates Screen (NotDetected) Valproic Acid 105.8 ug/mL U Tricyclic Antidepress (NotDetected) Ur Phencyclidine Scrn (NotDetected) Ur Amphetamines Screen (NotDetected) U Methamphetamines Scrn (NotDetected) U Benzodiazepines Scrn (NotDetected) Urine Cocaine Screen (NotDetected) U Marijuana (THC) Screen (NotDetected) Serum Alcohol mg/dL 08/14/18 Range/Units 10:10 WBC (3.8-10.6) k/uL RBC (4.30-5.90) m/uL Hgb (13.0-17.5) gm/dL Hct (39.0-53.0) % MCV (80.0-100.0) fL MCH (25.0-35.0) pg MCHC (31.0-37.0) g/dL RDW (11.5-15.5) % Plt Count (150-450) k/uL Neutrophils % % Lymphocytes % % Monocytes % % Eosinophils % % Basophils % % Neutrophils # (1.3-7.7) k/uL Lymphocytes # (1.0-4.8) k/uL Monocytes # (0-1.0) k/uL Eosinophils # (0-0.7) k/uL Basophils # (0-0.2) k/uL D-Dimer (<0.60) mg/L FEU Sodium (137-145) mmol/L Potassium (3.5-5.1) mmol/L Chloride (98-107) mmol/L Carbon Dioxide (22-30) mmol/L Anion Gap mmol/L BUN (9-20) mg/dL Creatinine (0.66-1.25) mg/dL Est GFR (CKD-EPI)AfAm (>60 ml/min/1.73 sqM) Est GFR (CKD-EPI)NonAf (>60 ml/min/1.73 sqM) Glucose (74-99) mg/dL Calcium (8.4-10.2) mg/dL Magnesium (1.6-2.3) mg/dL Total Bilirubin (0.2-1.3) mg/dL AST (17-59) U/L ALT (21-72) U/L Alkaline Phosphatase (38-126) U/L Ammonia (<30) umol/L Total Creatine Kinase (55-170) U/L CK-MB (CK-2) (0.0-2.4) ng/mL CK-MB (CK-2) Rel Index Total Protein (6.3-8.2) g/dL Albumin (3.5-5.0) g/dL Amylase (30-110) U/L Lipase (23-300) U/L Urine Color Colorless Urine Appearance Clear (Clear) Urine pH 5.0 (5.0-8.0) Ur Specific [place] 1.005 (1.001-1.035) Urine Protein Negative (Negative) Urine Glucose (UA) Negative (Negative) Urine Ketones Negative (Negative) Urine Blood Negative (Negative) Urine Nitrite Negative (Negative) Urine Bilirubin Negative (Negative) Urine Urobilinogen <2.0 (<2.0) mg/dL Ur Leukocyte Esterase Negative (Negative) Salicylates mg/dL Urine Opiates Screen Not Detected (NotDetected) Ur Oxycodone Screen Not Detected (NotDetected) Urine Methadone Screen Not Detected (NotDetected) Ur Propoxyphene Screen Not Detected (NotDetected) Acetaminophen ug/mL Ur Barbiturates Screen Not Detected (NotDetected) Valproic Acid ug/mL U Tricyclic Antidepress Not Detected (NotDetected) Ur Phencyclidine Scrn Not Detected (NotDetected) Ur Amphetamines Screen Not Detected (NotDetected) U Methamphetamines Scrn Not Detected (NotDetected) U Benzodiazepines Scrn Not Detected (NotDetected) Urine Cocaine Screen Not Detected (NotDetected) U Marijuana (THC) Screen Not Detected (NotDetected) Serum Alcohol mg/dL Disposition Clinical Impression: Dementia Disposition: DC/TRNS INTERMEDIATE CARE FAC Condition: Fair Is patient prescribed a controlled substance at d/c from ED?: No Referrals: None,Stated [Primary Care Provider] - 1-2 days Time of Disposition: 19:21 - Out of Hospital Transfer - Req. Specs Out of Hospital Transfer - Requested Specifics: Other Non-Acute (Foster care facility)
[2018-08-17] MEDS ORDERED: NALOXONE 0.4 MG/ML 1 ML VIAL IV PRN (21:47)
[2018-08-18] MEDS ORDERED: APIXABAN 5 MG TAB PO ONE (01:15)
[2018-08-18] MEDS ORDERED: SENNOSIDES 8.6 MG TAB PO ONE (01:15)
[2018-08-18] MEDS ORDERED: ISOSORBIDE MONONITRATE ER 30 MG TAB.ER.24H PO ONE (01:15)
[2018-08-18] MEDS ORDERED: ATORVASTATIN 10 MG TAB PO ONE (01:15)
[2018-08-18] MEDS ORDERED: DOCUSATE 100 MG CAP PO ONE (01:15)
[2018-08-18] MEDS ORDERED: METOPROLOL TARTRATE 25 MG TAB PO ONE (01:30)
[2018-08-18] MEDS: ATORVASTATIN 10 MG TAB PO SCH (01:45)
[2018-08-18] MEDS: APIXABAN 5 MG TAB PO SCH ×3 (01:45→21:06)
[2018-08-18] MEDS: DOCUSATE 100 MG CAP PO SCH (01:45)
[2018-08-18] MEDS: ISOSORBIDE MONONITRATE ER 30 MG TAB.ER.24H PO SCH (01:45)
[2018-08-18] MEDS: SENNOSIDES 8.6 MG TAB PO SCH (01:46)
[2018-08-18] MEDS: METOPROLOL TARTRATE 25 MG TAB PO SCH ×3 (01:46→21:06)
[2018-08-18] MEDS: SODIUM CHLORIDE 0.9% 1,000 ML IV SCH ×3 (01:46→21:07)
[2018-08-18] MEDS: LEVOTHYROXINE 50 MCG TAB PO SCH (06:20)
[2018-08-18] MEDS: DIVALPROEX 250 MG TABLET.DR PO SCH (08:46)
[2018-08-18] MEDS: carBAMazepine 100 MG TAB.ER.12H PO SCH (08:46)
[2018-08-18] MEDS: OXYBUTYNIN 10 MG TAB.ER.24 PO SCH (08:46)
[2018-08-18] MEDS ORDERED: FUROSEMIDE 40 MG TAB PO SCH (10:00)
[2018-08-18] MEDS: FLUoxetine HCL 20 MG CAP PO SCH (10:41)
[2018-08-18] MEDS: LISINOPRIL 10 MG TAB PO SCH (10:41)
[2018-08-18] MEDS: POTASSIUM CHLORIDE ER 10 MEQ TAB.ER.PRT PO SCH (10:41)
[2018-08-18] MEDS: CHOLECALCIFEROL 1,000 UNIT TAB PO SCH (10:42)
[2018-08-18 10:47] VITALS: BMI 15.5
--- NOTE | 2018-08-18 13:26 | P.CN ---
Psychiatric Consult - . Consult date: 08/18/18 Consult:: 08/18/18 13:21 Psychiatry evaluation Assessment and Plan (1) Major neurocognitive disorder due to Alzheimer's disease, possible Narrative/Plan: This is a 68-year-old male with a history of hypertension A. fib pacemaker pneumonia failure to thrive in the past who apparently lives in a boarding home and since last night is been demonstrating abnormal behavior. Apparently for 4 hours she was standing on his bed naked and applying cc's of the wall. This morning he was demonstrating continued bizarre behavior. He was transported here for evaluation by EMS. The woman apparently runs a boarding home and looks after him is a one that called EMS. Patient per paramedics was awake and alert and seems to be oriented and when asked answered questions reports of falls fevers chills nausea vomiting sweats or other symptoms. The woman that the patient lives with does give him his medications. Apparently the patient's daughter recently and since that time he is been demonstrating more symptoms of failure to thrive. Additionally patient does have what appears be new onset of left lower extremity edema MD Complaint: other - Related Data Home Medications Medication Instructions Recorded Confirmed Cholecalciferol [Vitamin D3] 1,000 unit PO DAILY 10/10/15 08/14/18 Divalproex [Depakote] 250 mg PO DAILY 10/10/15 08/14/18 Isosorbide Mononitrate [Isosorbide 30 mg PO HS 10/10/15 08/14/18 Mononitrate ER] carBAMazepine [Carbatrol] 100 mg PO DAILY 10/10/15 08/14/18 Simvastatin [Zocor] 10 mg PO HS 06/11/17 08/14/18 Apixaban [Eliquis] 5 mg PO BID 03/04/18 08/14/18 Lisinopril [Zestril] 10 mg PO DAILY 03/04/18 08/14/18 Potassium Chloride [K-Tab ER] 10 meq PO DAILY 03/04/18 08/14/18 Sennosides [Senna] 17.2 mg PO HS 03/04/18 08/14/18 Docusate [Colace] 200 mg PO HS 05/30/18 08/14/18 Oxybutynin Chloride [Ditropan XL] 10 mg PO DAILY 05/30/18 08/14/18 FLUoxetine HCL [PROzac] 20 mg PO DAILY 07/31/18 08/14/18 Clotrimazole/Betameth Lotion 1 applic TOPICAL BID PRN 08/08/18 08/14/18 [Lotrisone] Levothyroxine Sodium [Synthroid] 125 mcg PO DAILY 08/08/18 08/14/18 Previous Rx's Medication Instructions Recorded Furosemide [Lasix] 40 mg PO DAILY tab 06/02/18 Metoprolol Tartrate [Lopressor] 25 mg PO BID tab 06/02/18 Allergies Allergy/AdvReac Type Severity Reaction Status Date / Time No Known Allergies Allergy Verified 08/14/18 09:22 Past Medical History Past Medical History: Atrial Fibrillation, Diabetes Mellitus, Hyperlipidemia, Hypertension, Seizure Disorder Additional Past Medical History / Comment(s): Chronic Afib, SSS with pacemaker, diet controlled diabetes type II, hepatitis B carrier, pt states last seizure was "long ago", hypothyroid, bilateral lower leg/ankle edema, incontnence of urine at times, hematuria, constipation. History of Any Multi-Drug Resistant Organisms: None Reported Past Surgical History: Bowel Resection, Orthopedic Surgery, Pacemaker Additional Past Surgical History / Comment(s): 2010 generator change in pacer, PCI with stent 2003, cardiac cath 2009, bowel resections x2 d/t small blockages, bilateral cataracts removed, L pinky finger reattached. Past Anesthesia/Blood Transfusion Reactions: No Reported Reaction Type of Cardiac Device: Permanent Pacemaker Device Placement Date:: 07/13/02 Past Psychological History: Anxiety, Bipolar, Depression Smoking Status: Former smoker Past Alcohol Use History: None Reported Past Drug Use History: None Reported - Past Family History Mother Additional Family Medical History / Comment(s): Mother is . Pt states she when her "heart gave out." Father Additional Family Medical History / Comment(s): Father is . Pt cannot recall his medical hx Mental status examination: The patient presents alert, pleasant, and cooperative. There calmly seated without any agitated behavior. [He] reports that [his] mood is good. Affect is congruent and euthymic. [He] deny having any suicidal or homicidal ideation intent or plan. [He] denies any auditory or visual hallucinations. There is no evidence of any delusional thought content. [He] thought process is linear and not goal-directed. [His] speech is fluent and soft nonpressured. [His] memory and concentration is intact for the purposes of this session. He is not suicidal homicidal. Psychiatric impression: Neurocognitive disorder most likely due to Alzheimer's disease Psychiatric recommendation: He has mood stabilizers and antidepressant that's outlined above and should be maintained on. He needs to be follow-up and outpatient basis for further neurocognitive disorder treatment and does not need inpatient psychiatric treatment at this time on [address] [facility]. He is safe to go home since he is not a harm to himself or others he just needs full-time care. He was living in a boarding home which would give him his medications and make him more stable. Since she's been in the hospital last 3 days he showed no sign of agitation and irritability for acute psychosis. Thank you for the consult Fabio Kelly D.O. PhD Current Visit: Yes Status: Acute Code(s): G30.9 - ALZHEIMER'S DISEASE, UNSPECIFIED; F02.80 - DEMENTIA IN OTH DISEASES CLASSD [id number] W/O BEHAVRL DISTURB SNOMED Code(s): 816560918 (2) Dementia Current Visit: Yes Status: Acute Code(s): F03.90 - UNSPECIFIED DEMENTIA WITHOUT BEHAVIORAL DISTURBANCE SNOMED Code(s): 07563681 Time with Patient: Less than 30
--- NOTE | 2018-08-18 14:53 | P.HPIM ---
History of Present Illness H&P Date: 08/18/18 Chief Complaint: Behavioral disturbance Patient is a 68-year-old male with a known history of atrial fibrillation on anticoagulation and SSS pacemaker, hypertension, hyperlipidemia, diabetes type 2, seizure disorder was brought to the ER from boarding home since the patient has been demonstrating abnormal behaviors. Patient has been standing on his bed naked and continue to have bizarre behavior. The woman who is entering the boarding home looks after him usually and altered EMS. Patient otherwise denied any headache or dizziness. Denied any fever or chills. No headache or dizziness or lightheadedness. No chest pain or shortness of breath. Apparently the patient's daughter recently and since that time he is been demonstrating more symptoms of failure to thrive. \\ EKG showed ventricular pacer rhythm. Left lower extremities duplex scan done due to swelling is negative for any DVT. CT head showed no acute abnormality. Is related atrophy and chronic small vessel ischemia. Chest x-ray showed no acute cardiopulmonary process. BUN 39 creatinine 0.9 UA negative UDS and SDS negative. Review of Systems Constitutional: Patient denies any fever or chills . No generalized weakness or weight loss. Abdomen: Patient denied nausea vomiting and diarrhea and abdominal pain. Cardiovascular: Patient denies any chest pain or short of breath no palpitations. Respiratory: patient denied any cough is from production. No shortness of breath Neurologic: Patient denied any numbness or tingling headache. Musculoskeletal: Patient denies any complaints of joint swelling or deformity. Skin: Negative Psychiatric: Depressed Endocrine: No heat or cold intolerance. No recent weight gain. Genitourinary: No dysuria or hematuria. All other 14 point ROS negative except the above Past Medical History Past Medical History: Atrial Fibrillation, Diabetes Mellitus, Hyperlipidemia, Hypertension, Seizure Disorder Additional Past Medical History / Comment(s): Chronic Afib, SSS with pacemaker, diet controlled diabetes type II, hepatitis B carrier, pt states last seizure was "long ago", hypothyroid, bilateral lower leg/ankle edema, incontnence of urine at times, hematuria, constipation. History of Any Multi-Drug Resistant Organisms: None Reported Past Surgical History: Bowel Resection, Orthopedic Surgery, Pacemaker Additional Past Surgical History / Comment(s): 2010 generator change in pacer, PCI with stent 2003, cardiac cath 2009, bowel resections x2 d/t small blockages, bilateral cataracts removed, L pinky finger reattached. Past Anesthesia/Blood Transfusion Reactions: No Reported Reaction Type of Cardiac Device: Permanent Pacemaker Device Placement Date:: 07/13/02 Past Psychological History: Anxiety, Bipolar, Depression Additional Psychological History / Comment(s): Pt has a public legal guardian. He resides at [facility]. He uses a cane prn. He receives his medications in bubble packs. He has chores to do and has to keep his room clean. Smoking Status: Former smoker Past Alcohol Use History: None Reported Past Drug Use History: None Reported - Past Family History Mother Additional Family Medical History / Comment(s): Mother is . Father Additional Family Medical History / Comment(s): Father is . Pt cannot recall his medical hx Medications and Allergies Home Medications Medication Instructions Recorded Confirmed Type Cholecalciferol [Vitamin D3] 1,000 unit PO DAILY 10/10/15 08/14/18 History Divalproex [Depakote] 250 mg PO DAILY 10/10/15 08/14/18 History Isosorbide Mononitrate [Isosorbide 30 mg PO HS 10/10/15 08/14/18 History Mononitrate ER] carBAMazepine [Carbatrol] 100 mg PO DAILY 10/10/15 08/14/18 History Simvastatin [Zocor] 10 mg PO HS 06/11/17 08/14/18 History Apixaban [Eliquis] 5 mg PO BID 03/04/18 08/14/18 History Lisinopril [Zestril] 10 mg PO DAILY 03/04/18 08/14/18 History Potassium Chloride [K-Tab ER] 10 meq PO DAILY 03/04/18 08/14/18 History Sennosides [Senna] 17.2 mg PO HS 03/04/18 08/14/18 History Docusate [Colace] 200 mg PO HS 05/30/18 08/14/18 History Oxybutynin Chloride [Ditropan XL] 10 mg PO DAILY 05/30/18 08/14/18 History Furosemide [Lasix] 40 mg PO DAILY tab 06/02/18 08/14/18 Rx Metoprolol Tartrate [Lopressor] 25 mg PO BID tab 06/02/18 08/14/18 Rx FLUoxetine HCL [PROzac] 20 mg PO DAILY 07/31/18 08/14/18 History Clotrimazole/Betameth Lotion 1 applic TOPICAL BID PRN 08/08/18 08/14/18 History [Lotrisone] Levothyroxine Sodium [Synthroid] 125 mcg PO DAILY 08/08/18 08/14/18 History Allergies Allergy/AdvReac Type Severity Reaction Status Date / Time No Known Allergies Allergy Verified 08/14/18 09:22 Physical Exam Vitals: Vital Signs Temp Pulse Pulse Resp BP BP Pulse Ox 08/18/18 05:00 97.4 F L 57 L 18 129/76 99 08/18/18 00:00 97.6 F 65 16 142/79 98 08/17/18 22:17 97.2 F L 69 18 137/96 99 08/17/18 20:40 97.6 F 93 20 179/95 100 08/17/18 11:01 144/96 100 Intake and Output 08/17/18 08/18/18 08/18/18 22:59 06:59 14:59 Intake Total 210 Balance 210 Intake: Amount of Fluid Infused ( 50 ml) Intake, IV Titration 160 Amount Sodium Chloride 0.9% 1, 160 000 ml @ 80 mls/hr IV . [id number] [facility] Rx#:[id number] Other: Voiding Method Urinal Urinal Weight 50.5 kg PHYSICAL EXAMINATION: Patient is lying in the bed comfortably, no acute distress, awake alert and or iented.. HEENT: Normocephalic. Neck is supple. Pupils reactive. Nostrils clear. Oral cavity is moist. Ears reveal no drainage. Neck reveals no JVD, carotid bruits, or thyromegaly. CHEST EXAMINATION: Trachea is central. Symmetrical expansion. Lung womack clear to auscultation and percussion. CARDIAC: Normal S1, S2 with no gallops. No murmurs ABDOMEN: Soft. Bowel sounds normal. No organomegaly. No abdominal bruits. Extremities: reveal no edema. No clubbing or cyanosis Neurologically awake, alert, oriented x3 with well-coordinated movements. No focal deficits noted Skin: No rash or skin lesions. Psychiatric: Coperative. Denied any suicidal ideation currently. Feels depressed and not interested. Musculoskeletal: No joint swelling or deformity. Normal range of motion. Results CBC & Chem 7: 08/14/18 08:34 08/14/18 08:34 Thrombosis Risk Factor Assmnt - DVT/VTE Prophylaxis DVT/VTE Prophylaxis: Pharmacologic Prophylaxis ordered - Choose All That Apply Any of the Below Risk Factors Present?: No Other Risk Factors: Yes Each Risk Factor Represents 2 Points: Age 61-74 years Other congenital or acquired thrombophilia - If yes, enter type in comment: No Thrombosis Risk Factor Assessment Total Risk Factor Score: 2 Thrombosis Risk Factor Assessment Level: Low Risk Assessment and Plan Assessment: Neurocognitive disorder likely due to underlying Alzheimer's disease Dementia with behavioral disturbance Dehydration and volume depletion due to poor oral intake Chronic fibrillation on anticoagulation with Eliquis Sick sinus syndrome currently on pacemaker Hypertension Hyperlipidemia History of seizure disorder Anxiety/Depression and mood disorder Review of systems smoking Hepatitis B carrier History of seizure disorder Hypothyroidism Urinary incontinence at times Coronary artery disease with history of stent placement in 2003 and recent cardiac cath in 2009 Plan: Patient will be continued on IV hydration. Continue with home blood pressure medications and hold Lasix at this time. Continue with antidepressants and most arises. Psychiatric is on board. Patient does not need any psychiatric transfer currently. Encourage oral intake. PT OT will be consulted. Anticipate discharge in next 24-48 hours. Time with Patient: Greater than 30
[2018-08-18] MEDS ORDERED: DOCUSATE 100 MG CAP PO SCH (21:00)
[2018-08-18] MEDS ORDERED: SENNOSIDES 8.6 MG TAB PO SCH (21:00)
[2018-08-18] MEDS ORDERED: ISOSORBIDE MONONITRATE ER 30 MG TAB.ER.24H PO SCH ×2 (21:00)
[2018-08-18] MEDS ORDERED: ATORVASTATIN 10 MG TAB PO SCH (21:00)
[2018-08-19] MEDS: LEVOTHYROXINE 50 MCG TAB PO SCH (05:30)
[2018-08-19 08:09] LABS: Basophils % (A) 1 %; Eosinophils # (A) 0.1 k/uL (0-0.7); Eosinophils % (A) 1 %; HCT 41.2 % (39.0-53.0); HGB 14.1 gm/dL (13.0-17.5); Lymphocytes # (A) 1.4 k/uL (1.0-4.8); Lymphocytes % (A) 25 %; MCH 33.7 pg (25.0-35.0); MCHC 34.1 g/dL (31.0-37.0); MCV 98.9 fL (80.0-100.0); Mean Platelet Volume 6.6; Monocytes # (A) 0.5 k/uL (0-1.0); Monocytes % (A) 9 %; Neutrophils # (A) 3.6 k/uL (1.3-7.7); Neutrophils % (A) 63 %; Platelet Count 227 k/uL (150-450); RBC 4.17 m/uL (4.30-5.90); RDW 13.4 % (11.5-15.5); WBC 5.8 k/uL (3.8-10.6)
[2018-08-19] MEDS: OXYBUTYNIN 10 MG TAB.ER.24 PO SCH (08:19)
[2018-08-19] MEDS: carBAMazepine 100 MG TAB.ER.12H PO SCH (08:19)
[2018-08-19] MEDS: APIXABAN 5 MG TAB PO SCH (08:20)
[2018-08-19 08:22] LABS: Anion Gap 5 mmol/L; Blood Urea Nitrogen 28 mg/dL (9-20); Calcium 9.3 mg/dL (8.4-10.2); Carbon Dioxide 28 mmol/L (22-30); Chloride 104 mmol/L (98-107); Glucose 136 mg/dL (74-99); Potassium 4.1 mmol/L (3.5-5.1); Sodium 137 mmol/L (137-145)
[2018-08-19] MEDS: FLUoxetine HCL 20 MG CAP PO SCH (08:23)
[2018-08-19] MEDS: METOPROLOL TARTRATE 25 MG TAB PO SCH (08:24)
[2018-08-19] MEDS: POTASSIUM CHLORIDE ER 10 MEQ TAB.ER.PRT PO SCH (08:24)
[2018-08-19] MEDS: LISINOPRIL 10 MG TAB PO SCH (08:24)
[2018-08-19] MEDS: DIVALPROEX 250 MG TABLET.DR PO SCH (08:28)
[2018-08-19] MEDS: CHOLECALCIFEROL 1,000 UNIT TAB PO SCH (08:28)
[2018-08-19] MEDS: SODIUM CHLORIDE 0.9% 1,000 ML IV SCH (08:29)
[2018-08-19 13:27] VITALS: BP 167/92; PULSE 55; RESP 16; TEMP 98.2
== END 2018-08-19 16:00 ==
LOC: EC 08:31 → 1SOBS 08-17 21:48 → 3NMEDONC 08-17 22:44
PROVIDERS: ADMIT Internal Medicine; ATTEND Internal Medicine
DX: G30.9 Alzheimer's disease, unspecified (principal); R41.9 Unspecified symptoms and signs involving cognitive functions and awareness; F02.81 Dementia in other diseases classified elsewhere, unspecified severity, with behavioral disturbance; E86.0 Dehydration; E86.9 Volume depletion, unspecified; I48.2 Chronic atrial fibrillation; R60.0 Localized edema; K59.00 Constipation, unspecified; E11.9 Type 2 diabetes mellitus without complications; I49.5 Sick sinus syndrome; Z95.0 Presence of cardiac pacemaker; I10 Essential (primary) hypertension; E78.5 Hyperlipidemia, unspecified; G40.909 Epilepsy, unspecified, not intractable, without status epilepticus; F31.9 Bipolar disorder, unspecified; F41.9 Anxiety disorder, unspecified; E03.9 Hypothyroidism, unspecified; R32 Unspecified urinary incontinence; I25.10 Atherosclerotic heart disease of native coronary artery without angina pectoris; B18.1 Chronic viral hepatitis B without delta-agent; Z95.5 Presence of coronary angioplasty implant and graft; Z79.890 Hormone replacement therapy; Z79.899 Other long term (current) drug therapy; Z87.891 Personal history of nicotine dependence; Z79.01 Long term (current) use of anticoagulants
CPT/HCPCS: 36415; 70450; 71046; 80048; 80053; 80164; 80306; 80320; 81003; 82075; 82140; 82150; 82550; 82553; 83520; 83690; 83735; 85025; 85379; 93005; 96361; 96374; 99285

== ENCOUNTER 2018-09-28 23:32 | Emergency (ER) | payer MEDICARE, OTHER ==
[2018-09-28] MEDS ORDERED: DIPH,PERTUS(ACELL)TETVAC-LF 0.5 ML VIAL IM ONE (23:56)
--- NOTE | 2018-09-29 00:06 | ED ---
General Adult HPI - General Chief complaint: Fall Stated complaint: Fall Time Seen by Provider: 09/28/18 23:43 Source: patient, EMS, RN notes reviewed, old records reviewed Mode of arrival: EMS Limitations: no limitations - History of Present Illness Initial comments: 68 -year-old male presenting status post fall from bed. Patient has history of dementia, he did roll from his bed approximately 8-12 inches off the ground. There is typically a pad however this plan had been removed. He did have minor head injury. No loss consciousness reported. Patient is currently anticoagulated secondary to history of atrial fibrillation. He is complaining of left elbow pain only. Denies any other pain complaints, no headache, no right upper extremity injury, no abdominal pain or chest pain, no lower extremity injury. - Related Data Home Medications Medication Instructions Recorded Confirmed Cholecalciferol [Vitamin D3] 1,000 unit PO DAILY 10/10/15 08/14/18 Divalproex [Depakote] 250 mg PO DAILY 10/10/15 08/14/18 Isosorbide Mononitrate [Isosorbide 30 mg PO HS 10/10/15 08/14/18 Mononitrate ER] carBAMazepine [Carbatrol] 100 mg PO DAILY 10/10/15 08/14/18 Simvastatin [Zocor] 10 mg PO HS 06/11/17 08/14/18 Apixaban [Eliquis] 5 mg PO BID 03/04/18 08/14/18 Lisinopril [Zestril] 10 mg PO DAILY 03/04/18 08/14/18 Potassium Chloride [K-Tab ER] 10 meq PO DAILY 03/04/18 08/14/18 Sennosides [Senna] 17.2 mg PO HS 03/04/18 08/14/18 Docusate [Colace] 200 mg PO HS 05/30/18 08/14/18 Oxybutynin Chloride [Ditropan XL] 10 mg PO DAILY 05/30/18 08/14/18 FLUoxetine HCL [PROzac] 20 mg PO DAILY 07/31/18 08/14/18 Clotrimazole/Betameth Lotion 1 applic TOPICAL BID PRN 08/08/18 08/14/18 [Lotrisone] Levothyroxine Sodium [Synthroid] 125 mcg PO DAILY 08/08/18 08/14/18 Previous Rx's Medication Instructions Recorded Furosemide [Lasix] 40 mg PO DAILY tab 06/02/18 Metoprolol Tartrate [Lopressor] 25 mg PO BID tab 06/02/18 Allergies Allergy/AdvReac Type Severity Reaction Status Date / Time No Known Allergies Allergy Verified 09/28/18 23:41 Review of Systems ROS Statement: Those systems with pertinent positive or pertinent negative responses have been documented in the HPI. ROS Other: All systems not noted in ROS Statement are negative. Past Medical History Past Medical History: Atrial Fibrillation, Diabetes Mellitus, Hyperlipidemia, Hypertension, Seizure Disorder Additional Past Medical History / Comment(s): Chronic Afib, SSS with pacemaker, diet controlled diabetes type II, hepatitis B carrier, pt states last seizure was "long ago", hypothyroid, bilateral lower leg/ankle edema, incontnence of urine at times, hematuria, constipation. History of Any Multi-Drug Resistant Organisms: None Reported Past Surgical History: Bowel Resection, Orthopedic Surgery, Pacemaker Additional Past Surgical History / Comment(s): 2010 generator change in pacer, PCI with stent 2003, cardiac cath 2009, bowel resections x2 d/t small blockages, bilateral cataracts removed, L pinky finger reattached. Past Anesthesia/Blood Transfusion Reactions: No Reported Reaction Type of Cardiac Device: Permanent Pacemaker Device Placement Date:: 07/13/02 Past Psychological History: Anxiety, Bipolar, Depression Smoking Status: Former smoker Past Alcohol Use History: None Reported Past Drug Use History: None Reported - Past Family History Mother Additional Family Medical History / Comment(s): Mother is . Pt states she when her "heart gave out." Father Additional Family Medical History / Comment(s): Father is . Pt cannot recall his medical hx General Exam Limitations: no limitations General appearance: alert, in no apparent distress Head exam: Present: normocephalic. Absent: atraumatic (Abrasion, no laceration, no significant hematoma) Neck exam: Present: normal inspection. Absent: tenderness, meningismus Respiratory exam: Present: normal lung sounds bilaterally. Absent: respiratory distress Cardiovascular Exam: Present: regular rate, normal rhythm GI/Abdominal exam: Present: soft. Absent: distended, tenderness, guarding Extremities exam: Present: tenderness (Left elbow tenderness, minimal pain with range of motion). Absent: full ROM Course Vital Signs 09/28/18 09/29/18 23:34 00:41 Temperature 99.6 F Pulse Rate 80 96 Respiratory 20 16 Rate Blood Pressure 103/65 104/57 O2 Sat by Pulse 100 97 Oximetry Medical Decision Making - Medical Decision Making 68-year-old male with fall, head injury and left elbow pain. Mechanism was minor. Minimal abrasion to the forehead and lateral left elbow. X-rays obtained, of the elbow shows degenerative changes no acute fracture dislocation. CT head negative for intracranial hemorrhage or mass effect, CT cervical spine negative for fracture or subluxation. Patient can be discharged back to group home. Tetanus is updated. Disposition Clinical Impression: Fall, Closed head injury, Contusion of forehead Disposition: HOME SELF-CARE Condition: Fair Instructions (If sedation given, give patient instructions): Fall Prevention for Older Adults (ED), Concussion (ED) Is patient prescribed a controlled substance at d/c from ED?: No Referrals: Jake Dunbar DO [Primary Care Provider] - 1-2 days Time of Disposition: 01:25
--- NOTE | 2018-09-29 00:31 | XR ---
EXAM: XR Left Elbow Complete, 3 or More Views CLINICAL HISTORY: ITS.REASON XR Reason: Pain TECHNIQUE: Frontal, lateral and oblique views of the left elbow. COMPARISON: None FINDINGS: Bones/joints: No acute fracture or dislocation identified. Degenerative changes of the left elbow. No joint effusion. Soft tissues: Normal. IMPRESSION: No acute abnormality identified.
--- NOTE | 2018-09-29 00:46 | CT ---
EXAM: CT Head Without Intravenous Contrast CLINICAL HISTORY: ITS.REASON CT Reason: Pain TECHNIQUE: Axial computed tomography images of the head/brain without intravenous contrast. CTDI is 45.2 mGy and DLP is 988.6 mGy-cm. This CT exam was performed using one or more of the following dose reduction techniques: automated exposure control, adjustment of the mA and/or kV according to patient size, and/or use of iterative reconstruction technique. COMPARISON: CT head on 05/30/2018 FINDINGS: Brain: No acute infarct or hemorrhage identified. No extra-axial fluid collection. No mass effect or midline shift. Stable areas of hypoattenuation in the supratentorial white matter likely represent chronic small vessel ischemic changes. Ventricles and sulci: Stable prominence of the ventricles and sulci is likely secondary to cerebral volume loss. Skull: Normal. No bony lesion or fracture. Subcutaneous tissues: Normal. Sinuses: Small polyp versus mucous retention cyst in the left maxillary sinus. Orbits: Bilateral lens implants. Other: Atherosclerotic calcifications in the intracranial vasculature. Cerumen in the right external auditory canal. IMPRESSION: 1. No acute intracranial abnormality. 2. Stable chronic small vessel ischemic changes and cerebral volume loss. EXAM: CT Cervical Spine Without Intravenous Contrast CLINICAL HISTORY: ITS.REASON CT Reason: Pain TECHNIQUE: Axial computed tomography images of the cervical spine without intravenous contrast. CTDI is 8.7 mGy and DLP is 255.8 mGy-cm. This CT exam was performed using one or more of the following dose reduction techniques: automated exposure control, adjustment of the mA and/or kV according to patient size, and/or use of iterative reconstruction technique. COMPARISON: CT C-spine on 07/31/2017 FINDINGS: Bones: Osteopenia. No acute fracture or bony lesion. Disc spaces: Degenerative changes of the spine. Degenerative mild anterolisthesis of C7 on T1. Degenerative mild retrolisthesis of C4 on C5. Soft tissues: Normal. Other: Cerumen in the right external auditory canal. Small polyps versus mucous retention cysts in the left maxillary sinus. Atherosclerotic changes of the vasculature. Left-sided pacemaker partially visualized. Mild scarring at the lung apices. Small calcified granulomas at the apices. IMPRESSION: No acute traumatic abnormality.
[2018-09-29 01:58] VITALS: BP 143/73; PULSE 78; RESP 18; TEMP 99
== END 2018-09-29 01:58 | disposition home or self-care (01) ==
LOC: EC 23:32
DX: S00.83XA Contusion of other part of head, initial encounter (principal); S50.312A Abrasion of left elbow, initial encounter; I48.2 Chronic atrial fibrillation; E78.5 Hyperlipidemia, unspecified; I10 Essential (primary) hypertension; G40.909 Epilepsy, unspecified, not intractable, without status epilepticus; E03.9 Hypothyroidism, unspecified; K59.00 Constipation, unspecified; F41.9 Anxiety disorder, unspecified; F32.9 Major depressive disorder, single episode, unspecified; Z95.0 Presence of cardiac pacemaker; Z95.818 Presence of other cardiac implants and grafts; Z87.891 Personal history of nicotine dependence; Z79.01 Long term (current) use of anticoagulants; Z79.890 Hormone replacement therapy; Z79.899 Other long term (current) drug therapy; Z23 Encounter for immunization; W06.XXXA Fall from bed, initial encounter; Y92.009 Unspecified place in unspecified non-institutional (private) residence as the place of occurrence of the external cause
CPT/HCPCS: 70450; 72125; 90471; 90715; 99284

== ENCOUNTER 2018-09-30 11:44 | Emergency (ER) | payer MEDICARE, OTHER ==
--- NOTE | 2018-09-30 11:54 | ED ---
Altered Mental Status HPI - General Stated Complaint: cardiac arrest Time Seen by Provider: 09/30/18 11:47 - History of Present Illness Initial Comments: Patient presents to the emergency department in cardiac arrest. He doesn't write any further information. Past medical history is provided on transfer paperwork by EMS. According to EMS, he received 7 rounds of ACLS doses of epinephrine IV. Patient was endotracheally intubated by EMS prior to arrival. He was also given IV atropine. He currently presents with asystole on the monitoring engineer. - Related Data Home Medications Medication Instructions Recorded Confirmed Cholecalciferol [Vitamin D3] 1,000 unit PO DAILY 10/10/15 08/14/18 Divalproex [Depakote] 250 mg PO DAILY 10/10/15 08/14/18 Isosorbide Mononitrate [Isosorbide 30 mg PO HS 10/10/15 08/14/18 Mononitrate ER] carBAMazepine [Carbatrol] 100 mg PO DAILY 10/10/15 08/14/18 Simvastatin [Zocor] 10 mg PO HS 06/11/17 08/14/18 Apixaban [Eliquis] 5 mg PO BID 03/04/18 08/14/18 Lisinopril [Zestril] 10 mg PO DAILY 03/04/18 08/14/18 Potassium Chloride [K-Tab ER] 10 meq PO DAILY 03/04/18 08/14/18 Sennosides [Senna] 17.2 mg PO HS 03/04/18 08/14/18 Docusate [Colace] 200 mg PO HS 05/30/18 08/14/18 Oxybutynin Chloride [Ditropan XL] 10 mg PO DAILY 05/30/18 08/14/18 FLUoxetine HCL [PROzac] 20 mg PO DAILY 07/31/18 08/14/18 Clotrimazole/Betameth Lotion 1 applic TOPICAL BID PRN 08/08/18 08/14/18 [Lotrisone] Levothyroxine Sodium [Synthroid] 125 mcg PO DAILY 08/08/18 08/14/18 Previous Rx's Medication Instructions Recorded Furosemide [Lasix] 40 mg PO DAILY tab 06/02/18 Metoprolol Tartrate [Lopressor] 25 mg PO BID tab 06/02/18 Allergies Allergy/AdvReac Type Severity Reaction Status Date / Time No Known Allergies Allergy Verified 09/28/18 23:41 Review of Systems ROS Statement: Those systems with pertinent positive or pertinent negative responses have been documented in the HPI. ROS Other: All systems not noted in ROS Statement are negative. Past Medical History Past Medical History: Atrial Fibrillation, Diabetes Mellitus, Hyperlipidemia, Hypertension, Seizure Disorder Additional Past Medical History / Comment(s): Chronic Afib, SSS with pacemaker, diet controlled diabetes type II, hepatitis B carrier, pt states last seizure was "long ago", hypothyroid, bilateral lower leg/ankle edema, incontnence of urine at times, hematuria, constipation. History of Any Multi-Drug Resistant Organisms: None Reported Past Surgical History: Bowel Resection, Orthopedic Surgery, Pacemaker Additional Past Surgical History / Comment(s): 2010 generator change in pacer, PCI with stent 2003, cardiac cath 2009, bowel resections x2 d/t small blockages, bilateral cataracts removed, L pinky finger reattached. Past Anesthesia/Blood Transfusion Reactions: No Reported Reaction Type of Cardiac Device: Permanent Pacemaker Device Placement Date:: 07/13/02 Past Psychological History: Anxiety, Bipolar, Depression Smoking Status: Former smoker Past Alcohol Use History: None Reported Past Drug Use History: None Reported - Past Family History Mother Additional Family Medical History / Comment(s): Mother is . Pt states she when her "heart gave out." Father Additional Family Medical History / Comment(s): Father is . Pt cannot recall his medical hx General Exam Limitations: altered mental status General appearance: obtunded Eye exam: Present: other (Fixed and dilated, nonresponsive) Respiratory exam: Present: other (Patient is endotracheally intubated, and bilateral breath sounds auscultated on bagging of the patient) Cardiovascular Exam: Present: other (no spontaneous heart sounds) GI/Abdominal exam: Absent: distended Extremities exam: Present: other (There is evidence of chronic contractures) Medical Decision Making - Medical Decision Making Patient presents in cardiac arrest. He is placed on monitoring engineer, interpreted by me as asystole. I gave him an eighth round of intravenous epinephrine. He remains in cardiac arrest despite continued ACLS protocol in the emergency department. He is pronounced . Disposition Clinical Impression: Cardiac arrest Disposition: Condition: Critical Is patient prescribed a controlled substance at d/c from ED?: No Referrals: Jake Dunbar, [Primary Care Provider] - 1-2 days Preliminary Cause of : cardiac arrest
== END 2018-09-30 14:36 | disposition expired ==
LOC: EC 11:44
DX: I46.9 Cardiac arrest, cause unspecified (principal); R41.82 Altered mental status, unspecified; M62.40 Contracture of muscle, unspecified site; I48.2 Chronic atrial fibrillation; E11.9 Type 2 diabetes mellitus without complications; E78.5 Hyperlipidemia, unspecified; I10 Essential (primary) hypertension; G40.909 Epilepsy, unspecified, not intractable, without status epilepticus; E03.9 Hypothyroidism, unspecified; K59.00 Constipation, unspecified; F31.9 Bipolar disorder, unspecified; Z87.891 Personal history of nicotine dependence; Z79.01 Long term (current) use of anticoagulants; Z79.890 Hormone replacement therapy; Z79.899 Other long term (current) drug therapy; Z95.0 Presence of cardiac pacemaker; Z87.448 Personal history of other diseases of urinary system; Z95.818 Presence of other cardiac implants and grafts; Z82.49 Family history of ischemic heart disease and other diseases of the circulatory system
CPT/HCPCS: 99285